=== PATIENT | female | born 1975 | race Caucasian/White ===

== ENCOUNTER 2021-10-03 01:52 | Day surgery (SDC) | payer BC, SELFPAY ==
[2021-10-02 18:05] VITALS: BMI 29.8
--- NOTE | 2021-10-02 18:41 | PC.NURSE ---
Report to the Outpatient Waiting Room, entrance under the green pavilion located off [facility], at time 0700 on date 10/03/21. OR Time: _0900_. - You and your visitor will be asked a series of questions to screen for COVID 19 for your protection. - Only one visitor is allowed at this time. - The patient visitor is requested to leave or wait in car when not with patient. - A mask is required within the hospital. Patients may have clear liquids (water, carbonated beverages, clear teas, apple juice) until 3 hours prior to surgery with a maximum of 20 ounces. - No food from midnight until time of surgery - Infants may have breast milk until 4 hours before surgery, infant formula 6 hours prior to surgery. - Children will be allowed to drink immediately following surgery. If applicable, please bring a bottle or sippy cup to assist with drinking. Juice, water, soda, and popsicles are readily available. For infants on formula, please bring formula the day of surgery. Pacifiers are allowed. Take the following medications with a SIP of water the morning of surgery: amoxicillin_ Medications to discontinue per physician vitamins__ Date to take last dose 10/02/21 Please no make-up, nail iraqi, hairspray, perfume, deodorant, or body powder the day of surgery. No jewelry (including any body piercings) or valuables the day of surgery, leave them at home. Please take a shower or bath the night before, or the morning of, surgery with an antibacterial soap. Wear comfortable, loose fitting clothing. Children are encouraged to wear pajamas. - Jewelry must be removed prior to entering the operating room. Rings and piercings that are not removed may be cut off. - The hospital will not accept responsibility for valuables. - Please leave all valuables, including medications, at home the day of surgery. If you are going home after surgery, a licensed charter and tour bus driver must drive you home. - NO public transportation without another adult. - We recommend that an adult stay with you for 24 hours following discharge. - We also recommend that you do not drive, make important decision, drink alcoholic beverages, or take any drugs that were not prescribed by your health care provider for at least 24 hours after your discharge time. For Pediatric surgeries, we recommend two adults accompany the child home (only one inside the building at this time). Follow any additional instructions given to you from your surgeon. If you or anyone in your household have experienced Covid symptoms in the past week, please notify your surgeon or the nurse liaison at the phone number below for possible testing. Telephone instructions given to Monica Li and asked if any additional questions and then verbalized understanding. Patient advised to call surgeon office or pre surgery nurse liaison [phone] if any additional questions.
[2021-10-03] MEDS: LACTATED RINGERS 1,000 ML 30 ML IV CONT ×3 (07:37→09:52)
[2021-10-03 07:52] VITALS: BP 111/68; PULSE 57; RESP 18; TEMP 36.7; O2SAT 99
--- NOTE | 2021-10-03 08:37 | P.PNAN_ITS ---
Anes - Initial Pre Proc Eval Procedure: Operation Date: 10/03/21 09:00 Proposed Procedures p Excision Basal Cell Carcinoma Right Nasal Sidewall with Frozen Section - Ricky Allen MD Date/Time: 10/03/21 08:37 Surgeon: Ricky Allen MD Pre Op Diagnosis: BCCA right nasal sidewall Patient Data Age: 46 Gender: F Height: 1.73 m Weight: 88.1 kg Last Vital Signs Temp 36.7 C 10/03/21 07:52 Pulse 57 L 10/03/21 07:52 Resp 18 10/03/21 07:52 BP 111/68 10/03/21 07:52 Pulse Ox 99 10/03/21 07:52 O2 Del Method Room Air 10/03/21 07:52 Allergies Allergy/AdvReac Type Severity Reaction Status Date / Time lidocaine AdvReac Mild Other Verified 10/03/21 07:45 erythromycin base AdvReac Rash Verified 10/03/21 07:45 Home Medications Medication Instructions Recorded Confirmed Type amoxicillin 500 mg capsule 500 mg PO DAILY 10/02/21 10/02/21 History ascorbic acid (vitamin C) 300 mg 300 mg PO DAILY 10/02/21 10/02/21 History chewable tablet coenzyme Q10 10 mg tablet 10 mg PO ONCE 10/02/21 10/02/21 History multivit with minerals-iron 18 1 tablet PO DAILY 10/02/21 10/02/21 History mg-folic ac 400 mcg-vit K 25 mcg tablet (Adults Multivitamin) pantoprazole 20 mg tablet,delayed 20 mg PO DAILY PRN spicy food 10/02/21 10/02/21 History release Patient hx anesthesia problems: none Family hx anesthesia problems: none Results Review: All pre-operative results and documents have been reviewed as part of the pre- operative evaluation. COUNTS INCLUDE 234 BEDS AT THE [facility] Past Medical History Medical History DVT (deep venous thrombosis) Seizure disorder TIA (transient ischemic attack) Social History Social History Smoking status: Never smoker Alcohol intake: current Substance use: never Living arrangements: with family Spiritual care concerns: No Anes - Eval Final PreProcedure Day of Procedure 10/03/21 08:37 Patient weight: overweight Heart: regular rate and rhythm Lungs: clear to auscultation Airway: Mallampati scale class II Neurological: alert and oriented Last oral intake: >/= 8 hours ASA classification: III Emergent: no Anesthetic plan: proceed Anesthesia type and monitoring: general GIVS and standard monitoring Results Review: All pre-operative results and documents have been reviewed as part of the pre- operative evaluation. Informed Consent: The patient's anesthetic plan and its attendant risks and benefits were discussed with the patient/family/POA. Questions were solicited and answers provided to the satisfaction of the patient/family/POA.
[2021-10-03] MEDS: BACITRACIN OINTMENT 15 GM TUBE 1 APPLIC TOPICAL (09:43)
[2021-10-03 09:52] VITALS: BP 126/62; PULSE 63; RESP 16; O2SAT 100
--- NOTE | 2021-10-03 10:05 | WPDHPUPDATE1 ---
History and Physical Update Update Date/Time: 10/03/21 10:05 History and Physical has been reviewed, including an updated exam of the patient. There are NO changes in the patient's condition. Risks, benefits, and alternatives have been discussed and questions answered. Patient agrees to proceed with procedure.
--- NOTE | 2021-10-03 10:17 | W.PM.PROC2 ---
Procedure Note - Detailed Date of Procedure 10/03/21 Pre-op Diagnosis BCCA right nasal sidewall Post-op Diagnosis Same Procedure Performed 1.3 cm excision of basal cell carcinoma of the right nasal sidewall with frozen section and intermediate repair 2 cm Surgeon Ricky Allen MD Anesthesia MAC Indications Biopsy-proven basal cell carcinoma Findings The residual tumor Description of Procedure The site on the patient's right nasal sidewall was marked with her consent in the holding area. She was taken to the operating room where she was placed supine on the operating table. She was given IV sedation interface was prepped and draped in usual fashion. A time-out was held firm. The site was carefully marked for excision. This area was infiltrated with approximately 5 milliliter of saline for a 2 best technique local anesthetic. She would not agree to lidocaine epinephrine. The excision was carried out through the full-thickness of skin into the subcutaneous tissue. The most inferior aspect was marked with the suture with 12:00 o'clock. Specimen sent to pathology. The pathologist reported that there was notable for . The margins were undermined approximately 0.5 cm in all directions. The wound margins were coapted with intradermal 5 0 Vicryl suture. The small standing cone was removed the distal end. The skin was closed with a running 5 0 nylon tolerated well. She is discharge home without prescription for pain medication Estimated Blood Loss 3 Drains No Packing No Pathology Yes Complications No immediate complications Condition Stable Disposition Same day
[2021-10-03 10:20] VITALS: BP 142/76; PULSE 58; RESP 16
[2021-10-03 10:50] VITALS: BP 135/75; PULSE 48; RESP 16
== END 2021-10-03 11:03 | disposition home or self-care (01) ==
PROVIDERS: PCP Family Medicine; Visit Provider Plastic Surgery
PROC: (CPT 11642; principal; 2021-10-03 09:00)
DX: C44.311 Basal cell carcinoma of skin of nose (principal)
CPT/HCPCS: 11642; 12051; 88305; 88331; 88332; A9270; J2250; J2405; J2704; J3010; J7120

== ENCOUNTER 2022-01-11 00:45 | Emergency (ER) | payer BC, SELFPAY ==
--- NOTE | ~2022-01-11 | CT_ITS ---
CORRECTED REPORT order change JMG 01/14/22 This report was recreated on 01/14/22. Original report was signed by Saeed Toscano M.D. on 01/11/2022 7:55 AEROSPACE MEDICINE PHYSICIAN EXAMINATION: CT abdomen pelvis wo con DATE: 01/11/2022 05:44 INDICATION: Left flank pain. TECHNIQUE: Computed tomography (CT) of the abdomen and pelvis was performed without intravenous contrast. Automated exposure control and iterative reconstruction technique were employed. The dose-length product was 258.79 mGy- cm. COMPARISON: None. FINDINGS: The visualized portions of the lung bases demonstrate mild atelectasis. No pleural effusion. The heart size is normal. No pericardial effusion. The liver, gallbladder, spleen, pancreas, adrenal glands, and right kidney are normal. There is mild left hydronephrosis and hydroureter. There is a 3 mm stone in distal left ureter. There are no dilated loops of bowel. There are changes of appendectomy. There are no pathologically enlarged lymph nodes. There is no free intraperitoneal fluid. There is moderate lower lumbar spondylosis. IMPRESSION: 1. 3 mm stone in distal left ureter with mild left hydronephrosis and hydroureter. Reviewed, dictated and finalized at location A. SPACE MEDICINE PHYSICIAN MTDD IMPRESSION: 1. 3 mm stone in distal left ureter with mild left hydronephrosis and hydrouret er.
[2022-01-11 00:48] VITALS: BP 153/72; PULSE 50; RESP 14; TEMP 36.6; O2SAT 100
--- NOTE | 2022-01-11 04:33 | ED.GENADULT ---
HPI - General Adult General Chief complaint: Abdominal Pain Stated complaint: kidney stone Time Seen by Provider: 01/11/22 01:10 History of Present Illness HPI narrative: Patient 46-year-old female who presents to Emergency Department with a chief complaint of flank pain. The patient reports that she had seen her VEHICLE RETURN ASSOCIATE after she started with pain in the left flank area that radiated to the left lower quadrant the patient states she had an outpatient ultrasound and that did not show any evidence of any acute abnormalities the patient states the pain got worse reports she is felt nauseated reports the pain is not improved by anything the patient is concerned that she may have a kidney stone. Related Data Home Medications Medication Instructions Recorded Confirmed amoxicillin 500 mg capsule 500 mg PO DAILY 10/02/21 10/02/21 ascorbic acid (vitamin C) 300 mg 300 mg PO DAILY 10/02/21 10/02/21 chewable tablet coenzyme Q10 10 mg tablet 10 mg PO ONCE 10/02/21 10/02/21 multivit with minerals-iron 18 1 tablet PO DAILY 10/02/21 10/02/21 mg-folic ac 400 mcg-vit K 25 mcg tablet (Adults Multivitamin) pantoprazole 20 mg tablet,delayed 20 mg PO DAILY PRN spicy food 10/02/21 10/02/21 release Allergies Allergy/AdvReac Type Severity Reaction Status Date / Time lidocaine AdvReac Mild Other Verified 01/11/22 01:00 erythromycin base AdvReac Rash Verified 01/11/22 01:00 Review of Systems Review of Systems: A 10 system review of systems was completed on the patient and is negative except for what is stated in the HPI. Nursing and ancillary documentation was reviewed. [facility] Past Medical History Medical History DVT (deep venous thrombosis) Seizure disorder TIA (transient ischemic attack) Social History Social History Smoking status: Never smoker Alcohol intake: current Substance use: never Spiritual care concerns: No Exam Narrative: GENERAL: Well-appearing, well-nourished, and in no acute distress. HEAD: Normocephalic, atraumatic. EYES: PERRLA and EOMI. ENT: Nares clear, no rhinorrhea or epistaxis. Mucous membranes moist. NECK: Supple. CHEST: Clear to auscultation. No respiratory distress. HEART: Regular rate and rhythm. No murmur heard. Normal peripheral pulses. ABDOMEN: Soft, nontender, nondistended, normal active bowel sounds. EXTREMITIES: Normal range of motion. No edema. SKIN: Warm, dry, no rash. NEURO: No focal deficits. Alert and oriented x3. PSYCH: Normal mood and affect. Course Vital Signs Vital signs: Vital Signs Temperature 36.6 C 01/11/22 00:48 Pulse Rate 50 L 01/11/22 00:48 Respiratory Rate 14 01/11/22 00:48 Blood Pressure 153/72 H 01/11/22 00:48 Pulse Oximetry 100 01/11/22 00:48 Oxygen Delivery Room Air 01/11/22 00:48 Temperature 36.6 C 01/11/22 00:48 Pulse Rate 50 L 01/11/22 00:48 Respiratory Rate 14 01/11/22 00:48 Blood Pressure 153/72 H 01/11/22 00:48 Pulse Oximetry 100 01/11/22 00:48 Oxygen Delivery Room Air 01/11/22 00:48 Medical Decision Making Vital Signs Vital Signs: Vital Signs Temperature 36.6 C 01/11/22 00:48 Pulse Rate 50 L 01/11/22 00:48 Respiratory Rate 14 01/11/22 00:48 Blood Pressure 153/72 H 01/11/22 00:48 Pulse Oximetry 100 01/11/22 00:48 Oxygen Delivery Room Air 01/11/22 00:48 Temperature 36.6 C 01/11/22 00:48 Pulse Rate 50 L 01/11/22 00:48 Respiratory Rate 14 01/11/22 00:48 Blood Pressure 153/72 H 01/11/22 00:48 Pulse Oximetry 100 01/11/22 00:48 Oxygen Delivery Room Air 01/11/22 00:48 Lab Data Result diagrams: 01/11/22 00:59 01/11/22 00:59 Labs: Lab Results 01/11/22 01/11/22 01/11/22 Range/Units 00:59 00:59 00:59 WBC 8.8 (4.5-10.0) K/mm3 RBC 4.26 (4.2-5.4) M/mm3 Hgb 13.0 (12.0-15.0) g/dL Hc
[2022-01-11 05:41] LABS: Alanine Aminotransferase 22 U/L (6-35); Albumin Level 4.3 g/dL (3.5-5.1); Alkaline Phosphatase 83 U/L (38-126); Anion Gap 10 mmol/L (8-16); Aspartate Amino Transferase 21 U/L (14-36); Bilirubin,Total 0.4 mg/dL (0.2-1.3); Blood Urea Nitrogen 30 mg/dL (7-17); Carbon Dioxide 27 mmol/L (22-30); Chloride 101 mmol/L (98-107); Estimated Glomerular Filt Rate > 60; Glucose 137 mg/dL (65-110); Potassium 3.5 mmol/L (3.4-5.0); Sodium 138 mmol/L (137-145)
[2022-01-11 06:02] LABS: Hematocrit 39.1 % (37.0-47.0); Mean Corpuscular Volume 91.8 fl (80-100); Red Blood Count 4.26 M/mm3 (4.2-5.4); White Blood Count 8.8 K/mm3 (4.5-10.0)
[2022-01-11 06:03] LABS: Immature Granulocyte Percent A 0.2 % (0-0.5); Lymphocytes Percent Auto 42.1 % (18.3-44.2); Mean Corpuscular HGB Conc 33.2 g/dl (32-36); Mean Corpuscular Hemoglobin 30.5 pg (26-34); Mean Platelet Volume 10.1 fl (7.4-10.4); Neutrophils Percent Auto 47.3 % (45.5-73.1); Platelet Count Result 281 k/mm3 (150-375); Red Cell Distribution Width 13.2 % (11.5-14.5)
[2022-01-11 06:04] LABS: Basophils Absolute Auto 0.1 K/mm3 (0.0-0.1); Basophils Percent Auto 0.6 % (0.2-1.2); Eosinophils Absolute Auto 0.3 K/mm3 (0-0.3); Eosinophils Percent Auto 3.1 % (0-4.4); Immature Granulocyte Absolute 0.02 K/mm3 (0.00-0.031); Monocytes Absolute Auto 0.6 K/mm3 (0.1-0.6); Monocytes Percent Auto 6.7 % (2.6-8.5); Neutrophils Absolute Auto 4.2 K/mm3 (1.3-6.7)
[2022-01-11 06:05] LABS: Color Urine Dark Yellow (Yellow)
[2022-01-11 06:06] LABS: Appearance Urine Cloudy (Clear); Blood Urine 3+ (Negative); Glucose Urine UA Negative (Negative); Ketones Urine Trace mg/dL (Negative); Protein Urine 2+ mg/dL (Negative); Specific Grav Ur >= 1.030 (1.001-1.035); pH Urine 5.5 (5.0-9.0)
[2022-01-11 06:07] LABS: Add Urine Microscopic? YES; Bilirubin Urine 1+ (Negative); Leukocyte Esterase Ur Negative LEU/UL (Negative); Nitrate Urine Negative (Negative); RBC Urine >75 /hpf (0-2); Urobilinogen Urine 0.2 mg/dL (<2.0)
[2022-01-11 06:08] LABS: Squamous Epithelial Cell Urine Many /hpf (Few); Uric Acid Crystals Urine Present /hpf; WBC Urine 16-20 /hpf
[2022-01-11 06:09] LABS: Bacteria Urine Trace /hpf
[2022-01-11] MEDS: TAMSULOSIN HCL 0.4 MG CAPSULE PO (06:58)
[2022-01-11] MEDS: HYDROcodone/acetaminophen (*CRX) 5-325 MG TABLET 1 TAB PO (06:58)
[2022-01-11] MEDS: ONDANSETRON HCL ODT 4 MG TABLET PO (07:01)
[2022-01-11 07:21] LABS: Lipase 155 U/L (23-300)
[2022-01-11 07:22] VITALS: BP 140/88; PULSE 88; RESP 18; O2SAT 99
== END 2022-01-11 07:26 | disposition home or self-care (01) ==
PROVIDERS: Emergency Provider Emergency Medicine; PCP Family Medicine
DX: N20.1 Calculus of ureter (principal); R10.31 Right lower quadrant pain
CPT/HCPCS: 36415; 74176; 74177; 80053; 81001; 81025; 83690; 85025; 87086; 99283; A9270; J1170; J2405; J7030; Q9967

== ENCOUNTER 2022-09-27 12:39 | Emergency (ER) | payer BC, SELFPAY ==
--- NOTE | 2022-09-27 12:41 | ED.URI ---
HPI - URI/Sore Throat General Chief Complaint: Upper Respiratory Infection Stated Complaint: sorethroar,congestion Time Seen by Provider: 09/27/22 12:41 Source: patient Mode of arrival: ambulatory Limitations: no limitations History of Present Illness HPI Narrative: Monica is a 47-year-old female patient presenting to the clinic today with complaints of cough, nasal/chest congestion, and sore throat that just started this morning. She is supposed to go on an international trip later this week and is concerned that she may have COVID. Denies any fever. Reports slight chills. Vital signs are stable and she is afebrile in the clinic. Related Data Home Medications Medication Instructions Recorded Confirmed pantoprazole 20 mg tablet,delayed 20 mg PO DAILY PRN spicy food 10/02/21 09/27/22 release Allergies Allergy/AdvReac Type Severity Reaction Status Date / Time lidocaine AdvReac Mild Other Verified 01/11/22 01:00 erythromycin base AdvReac Rash Verified 01/11/22 01:00 naproxen [From Aleve] AdvReac Unknown Verified 09/27/22 13:01 Review of Systems Review of Systems: Pertinent positives per HPI. Patient denies any fever, rash, headache, visual changes, dizziness, shortness of breath, chest pain, palpitations, nausea, vomiting, diarrhea, constipation, abdominal pain, or any urinary issues. PMFSH Past Medical History Medical History DVT (deep venous thrombosis) Seizure disorder TIA (transient ischemic attack) Social History Social History Smoking status: Never smoker Alcohol intake: current Substance use: never Living arrangements: with family Spiritual care concerns: No Comments At the time of my signature, I reviewed and agree with the nursing past medical, surgical, social, and family history. There is no relevant family history pertinent to the patient complaint. Exam Narrative: General: Well-developed, well nourished, in no apparent distress Head: Normocephalic, atraumatic Eyes: Pupils equally round and reactive to light bilaterally, EOM intact, sclera and conjunctive clear, no discharge, lids normal Ears: TMs intact and clear, ear canals clear, no drainage, grossly hearing normal. Nose: Nares patent, clear nasal discharge, no inflammation, no sinus tenderness. Mouth: Oropharynx without lesions or masses, good dentition, MMM. Postnasal drip Neck: Supple, trachea midline, no enlargement of anterior or posterior cervical nodes, no thyroid masses or goiter palpable. Cardio: Regular rate and rhythm, s1 and s2 normal, no murmur appreciated. Resp: Clear to auscultation bilaterally anteriorly and posteriorly, no rhonchi, rales, wheezing or rubs Course Course Emergency Course: Portions of this record may have been created with voice recognition software. Level of Care: Express Care Visit Vital Signs Vital signs: Vital signs reviewed MDM - URI/Sore Throat MDM Narrative Medical decision making narrative: At the time of visit patient is resting comfortably on the exam table. Strep screen was obtained was negative in the clinic today. I suspect patient has URI/pharyngitis. Supportive measures were discussed with the patient she voiced understanding discharge instructions and agrees to treatment plan. Differential Diagnosis Differential diagnosis: Likely upper respiratory infection, otitis media, sinusitis, viral infection, bronchitis, influenza, pharyngitis and other (COVID) Discharge Plan Discharge Clinical Impression: URI (upper respiratory infection) Qualifiers: URI type: unspecified viral URI Qualified Code(s): J06.9 - Acute upper respiratory infection, unspecified Pharyngitis Qualifiers: Pharyngitis/tonsillitis etiology: unspecified etiology Qualified Code(s): J02.9 - Acute pharyngitis, unspecified Patient Disposition: Home, Self-Care Conditi
[2022-09-27 12:53] VITALS: BP 125/73; PULSE 72; RESP 18; TEMP 36.4; O2SAT 98
== END 2022-09-27 13:06 | disposition home or self-care (01) ==
PROVIDERS: Emergency Provider Nurse Practitioner Family; PCP Family Medicine
DX: J06.9 Acute upper respiratory infection, unspecified (principal); J02.9 Acute pharyngitis, unspecified; Z86.718 Personal history of other venous thrombosis and embolism; Z86.73 Personal history of transient ischemic attack (TIA), and cerebral infarction without residual deficits
CPT/HCPCS: 87081; 87880; 99213; G0463

== ENCOUNTER 2024-04-19 10:53 | Emergency (ER) | payer BC, SELFPAY ==
--- NOTE | 2024-04-19 10:57 | ED_ITS ---
HPI - URI/Sore Throat General Chief Complaint: Upper Respiratory Infection Stated Complaint: cough, headache, congestion Time Seen by Provider: 04/19/24 11:10 Source: patient, RN notes reviewed and old records reviewed Mode of arrival: ambulatory Limitations: no limitations History of Present Illness HPI Narrative: 48-year-old female presents to the [facility] with complaints of cough, headache, congestion, sinus issues and ear discomfort that started on Friday, 2 days ago. Related Data Home Medications ?Medication ?Instructions ?Recorded ?Confirmed ?Last Taken ?Type pantoprazole 20 mg tablet,delayed 20 mg PO DAILY PRN spicy food 10/02/21 09/27/22 Unknown History release Allergies Allergy/AdvReac Type Severity Reaction Status Date / Time erythromycin base Allergy Rash Verified 04/19/24 11:10 lidocaine AdvReac Mild Other Verified 04/19/24 11:10 naproxen (From Aleve) AdvReac Unknown Verified 04/19/24 11:10 Review of Systems Review of Systems: All systems reviewed & are unremarkable except as noted in HPI and below Constitutional: Constitutional: Reports as per HPI and Reports headache(s) ENT: Reports as per HPI Cardiovascular: Cardiovascular: Reports no additional cardiovascular complaints, Denies chest pain and Denies dyspnea Respiratory: Respiratory: Reports as per HPI, Denies chest congestion, Reports cough and Denies dyspnea Musculoskeletal: Musculoskeletal: Reports no additional musculoskeletal complaints Integumentary/Breasts: Skin/Breast: Reports system reviewed and no additional complaints, except as docu PMFSH Past Medical History Medical History TIA (transient ischemic attack) Seizure disorder DVT (deep venous thrombosis) Social History Social History Smoking status: Never smoker Alcohol intake: current Substance use: never Living arrangements: with family Spiritual care concerns: No Comments At the time of my signature, I reviewed and agree with the nursing past medical, surgical, social, and family history. There is no relevant family history pertinent to the patient complaint. Exam Const: General: cooperative, no acute distress, well developed, alert, tired appearing, uncomfortable and well nourished Nutritional Appearance: well nourished Orientation/consciousness: patient oriented x3 Limitations: no limitations HENMT: Head: normal to inspection Ears: hearing grossly normal bilaterally, external ears normal, EAC's normal, mastoids normal, no periauricular adenopathy and TM abnormal with fluid behind the TM bilateral Face/Nose/Sinus: Normal external nose present, Normal nares present and No nasal discharge present Mouth: Yes Normal oral and palatal mucosa present, Yes lip normal, Yes tongue normal and Yes moist mucous membranes Throat: posterior oropharynx normal, uvula midline, postnasal drainage and no uvular edema Eyes: General: appearance normal, both eyes and all related structures Alignment and Position: alignment normal Neck: Neck: normal visual inspection, full ROM, no lymphadenopathy and no m eningeal signs Chest: Chest palpation & inspection: normal inspection of the chest Resp: Effort & Inspection: normal respiratory effort and able to speak in complete sentences Auscultation: clear to auscultation bilaterally, no crackles, no rales, no rhonchi and no wheezes Cardio: Rate: regular rate Skin: General skin exam: normal color and no rashes or lesions noted Neuro: General: patient oriented x3, gait normal, moves all extremities and no meningeal signs Cognition (Neuro): normal cognition Speech: normal speech Gait exam (Neuro): Normal gait present Extrem: General: normal to inspection, full ROM, capillary refill normal and normal gait Psych: Appearance: grossly normal and well kempt Mental Status: mental status grossly normal Speech and movement: Normal speech and movement present and Clear speech present Affect: normal affect Attitude: cooperative Course Course Level of Care: Express Care Visit Vital Signs Vital signs: Vital Signs Temperature 97.9 F 04/19/24 11:05 Pulse Rate 86 04/19/24 11:05 Respiratory Rate 18 04/19/24 11:05 Blood Pressure 135/79 04/19/24 11:05 Pulse Oximetry 98 04/19/24 11:05 Oxygen Delivery Room Air 04/19/24 11:05 Temperature 97.9 F 04/19/24 11:05 Pulse Rate 86 04/19/24 11:05 Respiratory Rate 18 04/19/24 11:05 Blood Pressure 135/79 04/19/24 11:05 Pulse Oximetry 98 04/19/24 11:05 Oxygen Delivery Room Air 04/19/24 11:05 Reviewed MDM - URI/Sore Throat MDM Narrative Medical decision making narrative: Patient sitting comfortably in exam room. Nontoxic, vitals stable. Patient in no acute distress. Patient presents with 2 day history of URI symptoms. Flu COVID are negative. Patient is appropriate for outpatient treatment of viral URI with close follow-up Discharge instructions reviewed with patient, as well as provided in writing per nursing staff. The instructions also include specific and strict return/GO TO THE ER as well as f/u information. All questions have been answered, and the patient deny any further questions with discharge and discharge plan. Some parts of this dictation were generated by voice recognition software and may contain typographical and/or grammatical inaccuracies. Differential Diagnosis Differential diagnosis: Likely upper respiratory infection, otitis media, sinusitis, viral infection, bronchitis, influenza and pharyngitis Lab Data Labs: Lab Results 04/19/24 Range/Units 11:31 POC Influenza A Ag Negative (Negative) POC Influenza B Ag Negative (Negative) POC SARS CoV-2 Ag Negative (Negative) Reviewed Critical Care Time Critical Care Time Critical Care Time: No Discharge Plan Discharge Clinical Impression: Upper respiratory infection Qualifiers: URI type: unspecified viral URI Qualified Code(s): J06.9 - Acute upper respiratory infection, unspecified Patient Disposition: Home, Self-Care Condition: Stable Instructions: Antibiotic Form, Upper Respiratory Infection (ED) Additional Instructions: Your rapid COVID test were negative Your rapid flu test was negative Your symptoms are likely due to a viral illness, which is not treated with antibiotics. Typically viral infections last 7-10 days, can linger for couple of weeks. It is very important to treat your symptoms. Drink plenty of water, Gatorade, Pedialyte, ice pops or Jell-O. -Alternate Tylenol and Motrin per package directions for fever or pain. You can alternate every 4 hours -Antihistamine medication such as Zyrtec/Claritin/Rose during the day can help improve symptoms. -doing daily nasal irrigations can help relieve pressure your sinuses. Things like a Neti pot -Use Flonase twice a day for 5 days then daily to help reduce the inflammation and dry up your sinuses. -You can also use Mucinex. Be sure to drink plenty of water with this medication at least 8 ounces with every dose and it is important to drink 8 to 10 glasses of water per day. Water is a natural decongestant -Eat and drink things that are easy to swallow, like tea or soup, or popsicles. -Oral rinses such as: Salt water gargles and/or may use topical anesthetic (eg. Chloraseptic spray) or lozenges to relieve dryness or throat pain). -Frequent hand washing or hand dance director is one of the best ways to prevent spread of infection. -Using a vaporizer or humidifier at night will also help thin secretions and help with coughing up phlegm. -Follow up with primary care provider in 7-10 days if condition is not improving - For new or worsening symptoms go directly to the nearest ER Patient Language: [place] Prescriptions: New benzonatate 100 mg capsule 100 mg PO TID PRN (Reason: cough) Qty: 10 0RF No Action pantoprazole 20 mg tablet,delayed release (DR/EC) 20 mg PO DAILY PRN (Reason: spicy food) Follow-up/Referrals: Ezra,DO Katherine [Primary Care Provider] - 2 Weeks ([facility] care follow up ) Stand Alone Forms: Work/School Release IP Time of Disposition: 11:30
[2024-04-19 11:05] VITALS: BP 135/79; PULSE 86; RESP 18; TEMP 36.6; O2SAT 98
[2024-04-19 11:34] LABS: EDCOVIDSCREEN Negative (Negative); EDINFLUASCREEN Negative (Negative); EDINFLUBSCREEN Negative (Negative)
--- OUTSIDE RECORDS SUMMARY | 2024-04-19 12:31 | XMS_ITS | Encounter Summary ---
Author Organization [facility] Address [address] [place] [address] Care Team Providers Care Director Toxicology Name Role Phone Pedro Bermeo MD Unavailable [phone] Katherine Munguia DO Primary Care Provider [phone] Encounter Details Date Type Department Care Team (Late st Contact Info) Description 11/11/2023 Skipolat Message Enc [facility] Medical [facility] Family Medicine - [place] [address], [address] [place] [phone] Katherine Munguia DO [address] [place] [address] Heading to [place] next week Social History Tobacco Use Types Packs/Day Years Used Date Smoking Tobacco: Never Passive Smoke Exposure: Past Smokeless Tobacco: Never Comments:na Alcohol Use Standard Drinks/Week Comments Yes 0 (1 standard drink = 0.6 oz pur e alcohol) occasional PHQ-2 Answer Date Recorded Patient Health Questionnaire-2 Score 0 11/14/2023 Comments No Sex and Gender Information Value Date Recorded Sex Assigned at Not on file Legal Sex Female 8:34 PM CDT Gender Identity Not on file Sexual Orientation Not on file 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
--- OUTSIDE RECORDS SUMMARY | 2024-04-19 12:31 | XMS_ITS | Encounter Summary ---
Author Organization [facility] Address [address] [place] [address] Care Team Providers Care Membership Manager Name Role Phone Pedro Bermeo MD Unavailable [phone] Katherine Munguia DO Primary Care Provider [phone] Encounter Details Date Type Department Care Team (Late st Contact Info) Description 11/25/2023 BDA Message Enc [facility] Medical Group Family Medicine - [place] [address], [address] [place] [phone] Katherine Munguia DO [address] [place] [address] Doxycycline Social History Tobacco Use Types Packs/Day Years [...] 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
--- OUTSIDE RECORDS SUMMARY | 2024-04-19 12:31 | XMS_ITS | Encounter Summary ---
Author Organization [facility] Address [address] [place] [address] Care Team Providers Care Program Scheduler Name Role Phone Pedro Bermeo MD Unavailable [phone] Katherine Munguia DO Primary Care Provider [phone] Encounter Details Date Type Department Care Team (Late st Contact Info) Description 09/24/2021 ADMA Biologicst Message Enc [facility] Medical [facility] Family Medicine - [place] [address], [address] [place] [phone] Katherine Munguia DO [address] [place] [address] Tick bite Social History Tobacco Use Types Packs/Day Years Used Date Smoking Tobacco: Never Smokeless Tobacco: Never Comments:na Alcohol Use Standard Drinks/Week Comments Yes 0 (1 standard drink = 0.6 oz pur e alcohol) occasional PHQ-2 Answer Date Recorded PHQ-2 Score - If the patient scores above 3, please move on to questions 3-9 0 09/26/2021 Comments No Sex and Gender Information Value Date Recorded Sex Assigned at Not on file Legal Sex Female 8:34 PM CDT Gender Identity Not on file Sexual Orientation Not on file 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 No / Unsure 09/21/2021 10:16 AM CDT documented as of this encounter Plan of Treatment Not on file documented as of this encounter Visit Diagnoses Not on filedocumented in this encounter Additional Health Concerns Infection Onset Date Last Indicated Resolved Time COVID-19 Rule Out 03/28/2022 03/28/2022 03/28/2022 8:40 PM REGISTERED NURSE CARDIAC COVID-19 Rule Out 06/05/2023 06/05/2023 06/05/2023 9:27 AM CDT Assessment Noted Time PHQ-9 Depression Total Score: 0 10/07/19 21 8:18 AM CDT documented as of this encounter Care Teams Program Scheduler Relationship Specialty Start Date End Date Katherine Munguia DO [address] [place] [address] PCP - General FAMILY PRACTICE 08/31/19 Pedro Bermeo MD [place] Baker Bench CARDIOVASCULAR DISEASE 05/08/17 documented as of this encounter
--- OUTSIDE RECORDS SUMMARY | 2024-04-19 12:31 | XMS_ITS | Encounter Summary ---
Author Organization [facility] Address [address] [place] [address] Care Team Providers Care Distribution Systems Superintendent Name Role Phone Pedro Bermeo MD Unavailable [phone] Katherine Munguia DO Primary Care Provider [phone] Encounter Details Date Type Department Care Team (Late st Contact Info) Description 06/10/2021 Ruby Ribbont Message Enc [facility] Medical Group Family Medicine - [place] [address], [address] [place] [phone] Katherine Munguia DO [address] [place] [address] Moms disability placard Social History Tobacco Use Types Packs/Day Years Used Date Smoking Tobacco: Never Smokeless Tobacco: Never Alcohol Use Standard Drinks/Week Comments Yes 0 (1 standard drink = 0.6 oz pur e alcohol) occasional PHQ-2 Answer Date Recorded PHQ-2 Score - If the patient scores above 3, please move on to questions 3-9 0 10/06/2020 Comments No Sex and Gender Information Value Date Recorded Sex Assigned at Not on file Legal Sex Female 8:34 PM CDT Gender Identity Not on file Sexual Orientation Not on file 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 No / Unsure 06/11/2021 7:03 AM CDT documented as of this encounter Progress Notes * Katherine Munguia DO - 06/12/2021 6:[address] in patient's chart, on jeff's mother She is needing a disabled placard renewal, please fill out for me to fill out * Katherine Munguia DO - 06/12/2021 6:04 AM CDTFrom: Jeff Zambranobenja To: Dr. Kathreine Munguia Sent: 06/10/2021 9:58 AM CDT Subject: Moms disability placard Katherine, We just realized that mom disability placard expires at the end of the month. Can your office please renew. I saw that physicians cam renew online via the [employer] website. Thank you!! Jeff documented in this encounter Plan of Treatment Not on file documented as of this encounter Visit Diagnoses Not on filedocumented in this encounter Additional Health Concerns Infection Onset Date Last Indicated Resolved Time COVID-19 Rule Out 03/28/2022 03/28/2022 03/28/2022 8:40 PM POWERTRAIN ENGINEER COVID-19 Rule Out 06/05/2023 06/05/2023 06/05/2023 9:27 AM CDT Assessment Noted Time PHQ-9 Depression Total Score: 0 10/07/19 21 8:18 AM CDT documented as of this encounter Care Teams Distribution Systems Superintendent Relationship Specialty Start Date End Date Katherine Munguia DO [address] [place] [address] PCP - General FAMILY PRACTICE 08/31/19 Pedro Bermeo MD [place] Grants Director CARDIOVASCULAR DISEASE 05/08/17 documented as of this encounter
--- OUTSIDE RECORDS SUMMARY | 2024-04-19 12:31 | XMS_ITS | Encounter Summary ---
Author Organization [facility] Address [address] [place] [address] Care Team Providers Care Family Court Counsellor Name Role Phone Pedro Bermeo MD Unavailable [phone] Katherine Munguia DO Primary Care Provider [phone] Encounter Details Date Type Department Care Team (Late st Contact Info) Description 02/28/2023 Aero[employer]yn[employer] Message Enc [facility] Medical Group Family Medicine - [place] [address], [address] [place] [phone] Katherine Munguia DO [address] [place], [place] [id number] Injury on New Years Social History Tobacco Use Types Packs/Day Years Used Date Smoking Tobacco: Never Smokeless Tobacco: Never Comments:na Alcohol Use Standard Drinks/Week Comments Yes 0 (1 standard drink = 0.6 oz pur e alcohol) occasional PHQ-2 Answer Date Recorded Patient Health Questionnaire-2 Score 0 03/19/2022 Comments No Sex and Gender Information Value Date Recorded Sex Assigned at Not on file Legal Sex Female 8:34 PM CDT Gender Identity Not on file Sexual Orientation Not on file 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 Not on file Not on file documented as of this encounter Plan of Treatment Not on file documented as of this encounter Visit Diagnoses Not on filedocumented in this encounter Additional Health Concerns Infection Onset Date Last Indicated Resolved Time COVID-19 Rule Out 06/05/2023 06/05/2023 06/05/2023 9:27 AM CDT Assessment Noted Time PHQ-9 Depression Total Score: 0 09/27/19 22 2:18 PM CDT documented as of this encounter Care Teams Family Court Counsellor Relationship Specialty Start Date End Date Katherine Munguia DO [address] [place] [address] PCP - General FAMILY PRACTICE 08/31/19 Pedro Bermeo MD [place] Inseminator CARDIOVASCULAR DISEASE 05/08/17 documented as of this encounter
--- OUTSIDE RECORDS SUMMARY | 2024-04-19 12:31 | XMS_ITS | Encounter Summary ---
Author Organization [facility] Address [address] [place] [address] Care Team Providers Care Oil And Gas Lease Pumper Name Role Phone Pedro Bermeo MD Unavailable [phone] Katherine Munguia DO Primary Care Provider [phone] Encounter Details Date Type Department Care Team (Late st Contact Info) Description 02/04/2022 Geosign Message Enc [facility] Medical Group Family Medicine - [place] [address], [address] [place] [phone] Katherine Munguia DO [address] [place] [address] Mom Social History Tobacco Use Types Packs/Day Years [...] 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 No / Unsure 01/14/2022 1:44 PM QUAL FIELD MANAGER documented as of this encounter Plan of Treatment Not on file documented as of this encounter Visit Diagnoses Not on filedocumented in this encounter Additional Health Concerns Infection Onset Date Last Indicated Resolved Time COVID-19 Rule Out 03/28/2022 03/28/2022 03/28/2022 8:40 PM QUAL FIELD MANAGER COVID-19 Rule Out 06/05/2023 06/05/2023 06/05/2023 9:27 AM CDT Assessment Noted Time PHQ-9 Depression Total Score: 0 09/27/19 22 2:18 PM CDT documented as of this encounter Care Teams Oil And Gas Lease Pumper Relationship Specialty Start Date End Date Katherine Munguia DO [address] [place] [address] PCP - General FAMILY PRACTICE 08/31/19 Pedro Bermeo MD [place] Water Main Installer Helper CARDIOVASCULAR DISEASE 05/08/17 documented as of this encounter
--- OUTSIDE RECORDS SUMMARY | 2024-04-19 12:31 | XMS_ITS | Encounter Summary ---
Author Organization [facility] Address [address] [place] [address] Care Team Providers Care Limousine And Hearse Upholsterer Name Role Phone Pedro Bermeo MD Unavailable [phone] Katherine Munguia DO Primary Care Provider [phone] Encounter Details Date Type Department Care Team (Late st Contact Info) Description 10/05/[address] [employer] [address] [facility] Medical Group Family Medicine - [place] [address], [address] [place] [phone] Katherine Munguia DO [address] [place], [place] [id number] Can we talk before moms appointment Friday? 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 Not on file documented as of this encounter Plan of Treatment Not on file documented as of this encounter Visit Diagnoses Not on filedocumented in this encounter Additional Health Concerns Assessment Noted Time PHQ-9 Depression Total Score: 0 06/09/19 24 12:01 PM CDT documented as of this encounter Care Teams Limousine And Hearse Upholsterer Relationship Specialty Start Date End Date Katherine Munguia DO [facility] [place] [address] PCP - General FAMILY PRACTICE 08/31/19 Pedro Bermeo MD [place] Log Buncher CARDIOVASCULAR DISEASE 05/08/17 documented as of this encounter
--- OUTSIDE RECORDS SUMMARY | 2024-04-19 12:31 | XMS_ITS | Encounter Summary ---
Author Organization [facility] Address [address] [place] [address] Care Team Providers Care Photographer Model Name Role Phone Pedro Bermeo MD Unavailable [phone] Katherine Munguia DO Primary Care Provider [phone] Encounter Details Date Type Department Care Team (Late st Contact Info) Description 06/18/2023 [employer] Message Enc [facility] Medical Group Family Medicine - [place] [address], [address] [place] [phone] Katherine Munguia DO [address] [place], [place] [phone] Still have the cough Social History Tobacco Use Types Packs/Day Years [...] 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
--- OUTSIDE RECORDS SUMMARY | 2024-04-19 12:31 | XMS_ITS | Encounter Summary ---
Author Organization [facility] Address [address] [place] [address] Care Team Providers Care Service Crew Supervisor Name Role Phone Pedro Bermeo MD Unavailable [phone] Katherine Munguia DO Primary Care Provider [phone] Encounter Details Date Type Department Care Team (Late st Contact Info) Description 03/27/2023 Burst.it Message Enc [facility] Medical Group Family Medicine - [place] [address] [facility] [address], [address] [place] [phone] Katherine Munguia DO [address] [place] [address] ACL surgery Social History Tobacco Use Types Packs/Day Years [...] 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
--- OUTSIDE RECORDS SUMMARY | 2024-04-19 12:31 | XMS_ITS | Encounter Summary ---
Author Organization [facility] Address [address] [place] [address] Care Team Providers Care Physician Assistant Primary Care Name Role Phone Pedro Bermeo MD Unavailable [phone] Katherine Munguia DO Primary Care Provider [phone] Encounter Details Date Type Department Care Team (Late st Contact Info) Description 06/20/2021 Microlight Sensorst Message Enc [facility] Medical Group Family Medicine - [place] [address] [facility], [address] [place] [phone] Katherine Munguia DO [address] [place] [address] Travel to [facility] Social History Tobacco Use Types Packs/Day Years [...] 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
--- OUTSIDE RECORDS SUMMARY | 2024-04-19 12:32 | XMS_ITS | Clinical Summary ---
Author Organization [facility] Address Replaced by [facility] [place] [address] Care Team Providers Care Cellophane Casting Machine Repairer Name Role Phone Pedro Bermeo MD Unavailable [phone] Katherine Munguia DO Primary Care Provider [phone] Allergies Active Allergy Reactions Criticality Noted Date Comments Albuterol Other (see comment) 06/09/2023 Mad, irritated Erythromycin Unknown,Hives 10/15/2010 Lidocaine Unknown 04/23/2017 Does not work, if anything, makes opposite reaction than what it should do. Hypersensitive. Feels pain more. Naproxen Hives 10/20/2018 Only happens with Aleve, hives on hands & bottom of feet Plax Hives 10/21/2023 AIM To[employer]Paste Medications pantoprazole EC (PROTONIX) 20 MG tabletIndicatio ns:Epigastric pain Take 1 tablet (20 mg total) by mouth daily. 30 tablet 3 4 Active Additional Information Patient taking differently:20 mg OralPRN, Reported on 12/09/2023 Active Problems Problem Noted Date Diagnosed Date Kidney stones 01/14/2022 Lump in upper inner quadrant of left breast 11/24 History of meniscal tear 07/30/2017 Left knee pain 07/30/2017 History of DVT (deep vein thrombosis) 05/25/2017 History of pulmonary embolism 05/25/2017 Obesity (BMI 30.0-34.9) 05/25/2017 Family history of coronary artery disease in gra ndfather 05/25/2017 Abnormal menstrual cycle 09/15/2015 Left upper quadrant pain 09/15/2015 Skin mole 12/14/2013 Pes planus 11/26/2011 History of TIA (transient ischemic attack) Resolved Problems Problem Noted Date Diagnosed Date Resolved Date Obesity, Class I, BMI 30.0-3 4.9 (see actual BMI) 04/24/2019 10/26/2019 Metatarsalgia 06/27/2017 10/26/2019 Chest pain 04/14/2017 10/26/2019 Arthritis of ankle, right 06/25/2016 Left knee sprain 04/22/2016 10/26/2019 Skin lesion 04/09/2016 10/26/2019 History of pulmonary embolism 04/09/2016 10/06/2020 Coughing 03/04/2016 10/26/2019 Anxiety 12/08/2015 09/28/2021 Chest pressure 12/08/2015 10/26/2019 Frequent loose stools 11/03/20152019 Right ankle instability 10/20/201502/2019 Right ankle pain 10/20/2015 10/26/2019 Hot flashes 09/15/2015 10/26/2019 Costochondritis 05/26/2015 10/26/2019 Gastroesophageal reflux disease 05/26/2015 09/28/2021 Neck pain on left side 04/04/201510/25 Leg swelling 03/02/2015 10/26/2019 Otalgia 12/08/2014 10/26/2019 Obesity 09/23/2011 10/06/2020 Encounter for preventive health examination 09/20/2011 10/26/2019 Dizziness and giddiness 10/15/201002/2019 Other specified disorders of Eustachian tube, unspecified ear 10/15/2010 10/26/2019 Encounters Date Type Department Care Team Description 02/10/2024 MyChart Message Enc [facility] Medical Group Family Medicine - [place] [address], [address] ' [place] [address] Katherine Munguia, Mom from Last 3 Months Immunizations Name Administration Dates Next Due H1N1 Injectable 2009 Influenza 03/30/2009 Hepatitis A (Havrix [address]) 05/10/2000 Influenza (FluMist) 12/08/2010,01/24/2007 MMR (MMRII) 04/03/2003 Polio IPV (Ipol) 09/24/1999 Rabies (Imovax) 03/14/2005 Td (TDVAX) 05/20/2008,05/09/1998 Tdap (Generic) 02/24/2014 Typhoid (Typhim ) 06/23/2021,04/03/2007 Yellow Fever (YF- Vax) 12/27/2001 Family History Medical History Relation Comments Stroke Mother Heart Attack Paternal Grandfather Heart Attack Paternal Grandmother Cancer Neg Hx bladder, colon, breast, leukemia Relation Status Comments Father (Age 42) Maternal Grandfather (Age 92) Maternal Grandmother (Age 85) Mother Alive Paternal Grandfather (Age 71) Paternal Grandmother (Age 69) Social History Tobacco Use Types Packs/Day Years Used Date Smoking Tobacco: Never Passive Smoke Exposure: Past Smokeless Tobacco: Never Tobacco Cessation:Counseling Given: No Comments:na Alcohol Use Standard Drinks/Week Comments Yes 0 (1 standard drink = 0.6 oz pur e alcohol) occasional PHQ-2 Answer Date Recorded Patient Health Questionnaire-2 Score 0 12/09/2023 Comments No Sex and Gender Information Value Date Recorded Sex Assigned at Not on file Legal Sex Female 8:34 PM CDT Gender Identity Not on file Sexual Orientation Not on file 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 Not on file Not on file Last Filed Vital Signs Vital Sign Reading Time Taken Comments Blood Pressure 126/68 12/09/2023 9:19 AM CDT Pulse 74 12/09/2023 9:19 AM CDT Temperature 37.1 C (98.7 F) 12/09/2023 9:19 AM CDT Respiratory Rate 19 12/09/2023 9:19 AM CDT Oxygen Saturation 99% 12/09/2023 9:19 AM CDT Inhaled Oxygen Concentration - - Weight 97.8 kg (215 lb 9.6 oz) 12/09/2023 9:19 A M CDT Height 172.7 cm (5' 7.99 ) 12/09/2023 9:19 AM CD T Body Mass Index 32.79 12/09/2023 9:19 AM CDT Plan of Treatment Health Maintenance Due Date Last Done Comments Cervical Cancer Screening Pap Smear (Age 30 to 64) Every 3 Years 1973 Annual Physical 1976 Hepatitis C 05/03/1991 Hepatitis B Vaccines (1 of 3 - 19+ 3-dose series) 1992 Zoster Vaccines (1 of 2) 05/03/2023 COVID-19 Vaccine (3 - 2023- season) 2023 06/21/2020, 05/11/2020 Influenza Adult (#1) 2023 12/08/2010, 03/30/2009, 01/24/2007 Colorectal Cancer Screening Colonoscopy (10 Years) 01/15/2024 01/14/2019 DTaP, Tdap and Td Vaccines (2 - Td or Tdap) 02/25/2024 02/24/2014, 05/20/2008, 05/09/1998 PHQ-2 (Physician [place]) 02/25/2024 12/09/2023 PHQ-2 (Physician [place]) 12/08/2024 12/09/2023 Mammogram Screening 06/12/2025 06/13/2023, 06/25/2022, 06/25/2022, Additional history exists Cervical Cancer Screening Pap with HPV Testing (Age 30 to 64) Every 5 Years 09/18/2026 09/18/2021 Cervical Cancer Screening with HPV 09/18/2026 Meningococcal B Vaccine Aged Out No l onger eligible based on patient's age to complete this topic Meningococcal Vaccine Aged Out No sean helen eligible based on patient's age to complete this topic Pneumococcal Vaccine: Pediatrics (0 to 5 Years) and At-Risk Patients (6 to 64 Years) Aged Out No longer eligible based on patient's age to complete this topic RSV Immunizations Under 20 Months Aged Out No longer eligible based on patient's age to complete this topic Procedures Procedure Name Priority Date/Time Associated Diagnosis Comments MAMMOGRAM GENERIC (SCAN ORDER) Routine 06/25/2022 OUTSIDE CYTOPATH CERV/VAG IN TERPRET (PAP) 09/18/2021 COLONOSCOPY GENERIC (SCAN ORDER) Routine 01/14/2019 from Last 3 Months or Most Recently Relevant to Health Maintenance Results * MAMMOGRAM (06/25/2022) Anatomical Region Laterality Modality Other [facility] Scanned SCANNING Final Resu lt * PAP SMEAR WITH HPV (09/18/2021) 09/18/2021 [facility] Scanned SCANNING Final Resu lt * COLONOSCOPY (01/14/2019) [facility] Scanned SCANNING Final Resu lt [facility] from Last 3 Months or Most Recently Relevant to Health Maintenance Insurance [facility] Care Teams Cellophane Casting Machine Repairer Relationship Specialty Start Date End Date Katherine Munguia DO [address] [place] [address] PCP - General FAMILY PRACTICE 7/7/20 Pedro Bermeo MD [place] Welder Fabricator CARDIOVASCULAR DISEASE 05/08/17
--- OUTSIDE RECORDS SUMMARY | 2024-04-19 12:32 | XMS_ITS | Encounter Summary ---
Author Organization [facility] Address [address] [place] [address] Care Team Providers Care Acura Sales Consultant Name Role Phone Pedro Bermeo MD Unavailable [phone] Katherine Munguia DO Primary Care Provider [phone] Encounter Details Date Type Department Care Team (Late st Contact Info) Description 02/16/2020 [place] Message Enc [facility] Medical Group Family Medicine - [place] [address], [address] [place] [address] Katherine Munguia DO [address] [place] [address] RE: Other Social History Tobacco Use Types Packs/Day Years Used Date Smoking Tobacco: Never Smokeless Tobacco: Never Alcohol Use Standard Drinks/Week Comments Yes 0 (1 standard drink = 0.6 oz pur e alcohol) occasional PHQ-2 Answer Date Recorded PHQ-2 Score - If the patient scores above 3, please move on to questions 3-9 0 01/04/2020 Comments No Sex and Gender Information Value Date Recorded Sex Assigned at Not on file Legal Sex Female 8:34 PM CDT Gender Identity Not on file Sexual Orientation Not on file 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 No / Unsure 02/03/2020 2:13 PM EQUIP TECH documented as of this encounter Plan of Treatment Not on file documented as of this encounter Visit Diagnoses Not on filedocumented in this encounter Additional Health Concerns Infection Onset Date Last Indicated Resolved Time COVID-19 Rule Out 10/17/2020 10/17/2020 10/18/2020 1:38 PM CDT COVID-19 Rule Out 02/14/2021 02/14/2021 02/16/2021 2:27 AM EQUIP TECH COVID-19 Rule Out 05/04/2021 05/04/2021 05/05/2021 2:45 PM EQUIP TECH COVID-19 Rule Out 05/07/2021 05/07/2021 05/08/2021 1:42 AM CDT COVID-19 Rule Out 03/28/2022 03/28/2022 03/28/2022 8:40 PM EQUIP TECH COVID-19 Rule Out 06/05/2023 06/05/2023 06/05/2023 9:27 AM CDT documented as of this encounter Care Teams Acura Sales Consultant Relationship Specialty Start Date End Date Katherine Munguia DO [address] [place] [address] PCP - General FAMILY PRACTICE 08/31/19 Pedro Bermeo MD [place] Mule Driver CARDIOVASCULAR DISEASE 05/08/17 documented as of this encounter
--- OUTSIDE RECORDS SUMMARY | 2024-04-19 12:32 | XMS_ITS | Encounter Summary ---
Author Organization [facility] Address [address] [place] [address] Care Team Providers Care [place] Alderman Name Role Phone Pedro Bermeo MD Unavailable [phone] Katherine Munguia DO Primary Care Provider [phone] Encounter Details Date Type Department Care Team (Late st Contact Info) Description 03/15/2020 [place] Message Enc [facility] Medical Group Family Medicine - [place] [address] [facility], [address] [place] [phone] Katherine Munguia DO [address] [place] [address] RE: Question Social History Tobacco Use Types Packs/Day Years [...] 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 No / Unsure 03/10/2020 10:13 AM STUDIO MODEL documented as of this encounter Plan of Treatment Not on file documented as of this encounter Visit Diagnoses Not on filedocumented in this encounter Additional Health Concerns Infection Onset Date Last Indicated Resolved Time COVID-19 Rule Out 10/17/2020 10/17/2020 10/18/2020 1:38 PM CDT COVID-19 Rule Out 02/14/2021 02/14/2021 02/16/2021 2:27 AM STUDIO MODEL COVID-19 Rule Out 05/04/2021 05/04/2021 05/05/2021 2:45 PM STUDIO MODEL COVID-19 Rule Out 05/07/2021 05/07/2021 05/08/2021 1:42 AM CDT COVID-19 Rule Out 03/28/2022 03/28/2022 03/28/2022 8:40 PM STUDIO MODEL COVID-19 Rule Out 06/05/2023 06/05/2023 06/05/2023 9:27 AM CDT documented as of this encounter Care Teams [place] Relationship Specialty Start Date End Date Katherine Munguia DO [address] [place] [address] PCP - General FAMILY PRACTICE 08/31/19 Pedro Bermeo MD [place] Videotape Editor CARDIOVASCULAR DISEASE 05/08/17 documented as of this encounter
--- OUTSIDE RECORDS SUMMARY | 2024-04-19 12:32 | XMS_ITS | Clinical Summary ---
Author Organization [facility] Care Team Providers Care Compliance Attorney Name Role Phone Katherine Munguia Primary Care Provider [phone] Allergies Active Allergy Reactions Criticality Noted Date Comments Erythromycin Hives,Unknown 08/26/2007 Lidocaine Unknown 04/23/2017 Does not work, if anything, makes opposite reaction than what it should do. Hypersensitive. Feels pain more. Does not work, if anything, makes opposite reaction than what it should do. Hypersensitive. Feels pain more. Naproxen Hives 10/20/2018 Only happens with Aleve, hives on hands & bottom of feet Naproxen Sodium Hives 10/20/2018 Medications multi-vitamins Tablet Take 1 Tablet by mouth daily. 05/26/2017 Active Coenzyme Q10 (CO Q-10 PO) Co Q-10 Active Active Problems Problem Noted Date Diagnosed Date Chronic rhinitis 06/06/2022 Complete tear of anterior cruciate ligament of k nee 06/06/2022 Costochondritis 06/06/2022 Gastroesophageal reflux disease 06/06/2022 History of TIA (transient ischemic attack) 06/06 Uncomplicated severe persistent asthma Pulmonary embolism 06/06/2022 Severe acute respiratory syn drome coronavirus 2 (SARS-CoV-2) test result unknown 06/06/2022 History of DVT (deep vein thrombosis) 05/25/2017 History of pulmonary embolism 05/25/2017 Immunizations Immunization Administration Dates Next Due Hepatitis A Vaccine 05/10/2000 Inactivated Polio Vaccine 09/24/1999 Influenza Vaccine Nasal 12/08/2010,01/24/2007 MMR Vaccine 04/03/2003 Novel [id number], Injectable 03/30/2009 Rabies, Intradermal Injection 03/14/2005 TD VACCINE 05/20/2008,05/09/1998 TDAP Vaccine 02/24/2014 Typhoid Vaccine, Unspecified Formulation 002 Typhoid, ViCPs 06/23/2021,04/03/2007 Yellow Fever Vaccine 12/27/2001 Family History Medical History Relation Name Comments Bladder cancer Maternal Aunt 1 Breast Cancer Maternal Aunt 1 Chronic Obstructive Pulmonary Disease Maternal Aunt 1 Emphysema Maternal Aunt 1 Breast Cancer Maternal Aunt 2 Colon Cancer Maternal Aunt 2 Bladder cancer Maternal Grandmother Diabetes Paternal Grandfather Leukemia/Lymphoma Paternal Grandfather Diabetes Paternal Grandmother Relation Name Status Comments Father Maternal Aunt 1 Maternal Aunt 2 Alive Maternal Grandmother Paternal Grandfather Paternal Grandmother Social History Tobacco Use Types Packs/Day Years Used Date Smoking Tobacco: Never Smokeless Tobacco: Never Tobacco Cessation:Counseling Given: Not Answered Alcohol Use Standard Drinks/Week Comments Yes 1 (1 standard drink = 0.6 oz pur e alcohol) monthly Comments Unknown Sex and Gender Information Value Date Recorded Sex Assigned at Not on file Legal Sex Female 10:58 AM GOVERNMENT SALES MANAGER Gender Identity Not on file Sexual Orientation Not on file Last Filed Vital Signs Vital Sign Reading Time Taken Comments Blood Pressure 128/72 06/07/2022 10:57 AM CDT Pulse 64 06/07/2022 10:57 AM CDT Temperature 36.8 C (98.2 F) 06/07/2022 10:57 AM CDT Respiratory Rate 18 06/07/2022 10:5 7 AM CDT Oxygen Saturation 98% 05/31/2022 9:41 AM CDT Inhaled Oxygen Concentration - - Weight 92.9 kg (204 lb 11.2 oz) 023 10:57 AM CDT Height 172.7 cm (5' 8 ) 06/07/2022 10:5 7 AM CDT Body Mass Index 31.12 06/07/2022 10:57 AM CDT Plan of Treatment Health Maintenance Due Date Last Done Comments Hepatitis C Virus (HCV) Screening 1973 Hepatitis B Immunization (1 of 3 - 19+ 3-dose series) 1992 Pneumococcal Immunization (5 0+ years) (1 of 2 - PCV) 1992 Pap Smear 1994 Cervical Cancer Screening (CCS) 05/03/2003 HPV/Cotest 05/03/2003 Colonoscopy 2018 Colorectal Cancer Screening 2018 Mammogram 04/21/2020 04/21/2019 Cologuard 05/03/2023 Immunochemical Fecal Occult Blood 05/03/2023 Zoster Immunization (1 of 2) 05/03/2023 Influenza Immunization (#1) 10/26/202311/24, 01/24/2007 SARS-COV-2 Immunization ( season) 2023 Respiratory Syncytial Virus (RSV) Immunization (Adult) (1 - 1-dose 75+ series) 2048 DTaP/Tdap/Td Immunization Discontinued 2014, 05/20/2008, 05/09/1998 Discussion re Starting/Frequency of Mammograms Discontinued 04/21/2019 Meningococcal Immunization (ACWY) Aged Out No longer eligible based on patient's age to complete this topic Rotavirus Immunization Aged Out No lo nger eligible based on patient's age to complete this topic Insurance [facility] Care Teams Compliance Attorney Relationship Specialty Start Date End Date Katherine Munguia DO [address] [place] [id number] PCP - General Family Medicine 05/21/22
--- OUTSIDE RECORDS SUMMARY | 2024-04-19 12:32 | XMS_ITS | Encounter Summary ---
Author Organization [facility] Address [address] [place] [address] Care Team Providers Care Fish Pitcher Name Role Phone Pedro Bermeo MD Unavailable [phone] Katherine Munguia DO Primary Care Provider [phone] Encounter Details Date Type Department Care Team (Late st Contact Info) Description 03/17/2022 [place] Message Enc [facility] Medical Group Family Medicine - [place] [address], [address] [place] [phone] Katherine Munguia DO [address] [place], [place] [id number] [place] Social History Tobacco Use Types Packs/Day Years [...] 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 No / Unsure 03/19/2022 12:52 PM PROFESSOR OF NURSING documented as of this encounter Plan of Treatment Not on file documented as of this encounter Visit Diagnoses Not on filedocumented in this encounter Additional Health Concerns Infection Onset Date Last Indicated Resolved Time COVID-19 Rule Out 03/28/2022 03/28/2022 03/28/2022 8:40 PM PROFESSOR OF NURSING COVID-19 Rule Out 06/05/2023 06/05/2023 06/05/2023 9:27 AM CDT Assessment Noted Time PHQ-9 Depression Total Score: 0 09/27/19 22 2:18 PM CDT documented as of this encounter Care Teams Fish Pitcher Relationship Specialty Start Date End Date Katherine Munguia DO [address] [place] [address] PCP - General FAMILY PRACTICE 08/31/19 Pedro Bermeo MD [place] Director Of Institutional Sales CARDIOVASCULAR DISEASE 05/08/17 documented as of this encounter
--- OUTSIDE RECORDS SUMMARY | 2024-04-19 12:32 | XMS_ITS | Encounter Summary ---
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
--- OUTSIDE RECORDS SUMMARY | 2024-04-19 12:32 | XMS_ITS | Referral Summary ---
Author Organization [facility] al Address [address] [place] [address] Care Team Providers Care Mirror Maker Name Role Phone Katherine Munguia Primary Care Provider Aretha Robin MD Unavailable [phone] Allergies Active Allergy Reactions Criticality Noted Date Comments Erythromycin Hives,Rash Medium 08/26/2007 Reaction: Lidocaine Other (See comments),Unknown Low 03/15/2016 Does not work, if anything, makes opposite reaction than what it should do. Hypersensitive. Feels pain more. (Discovered this with dental procedures and ACL surgery(10 yrs ago) Naproxen Hives,Unknown Medium 10/20/2018 Only happens with Aleve, hives on hands & bottom of feet Patient states she allergic to aleve but can have generic naproxen Medications chlorhexidine (PERIDEX) 0.12 % solutionIndicat ions:Gingivitis Apply 15 mL to the mouth or throat nightly 2 Active EPINEPHrine 0.3 mg/0.3 mL auto-injection syringe Inject 0.3 mL (0.3 mg total) into the muscle as instructed as needed [address] (PROTONIX) 20 mg EC tablet Take 1 tablet (20 mg total) by mouth daily as needed for heartburn or indigestion 3 Active aspirin 81 mg enteric coated tablet Take 1 tablet (81 mg total) by mouth daily as needed for pain Active meloxicam (MOBIC) 15 mg tablet Take 1 tablet (15 mg total) by mouth daily for 10 days 10 tablet 4 Active oxyCODONE-aceta minophen (PERCOCET) 5-325 mg per tabletIndicatio ns:Pain Take 1-2 tablets by mouth every 6 (six) hours as needed for pain 40 tablet 4 Active cephalexin (KEFLEX) 500 mg capsule 4 Active Active Problems Problem Noted Date Diagnosed Date S/P ACL reconstruction 04/08/2023 S/P medial meniscus repair of right knee 024 Peripheral tear of medial me niscus of right knee as current injury 03/31/2023 Chondromalacia of right patella 03/31/2023 Sprain of anterior cruciate ligament of right kn ee 03/19/2023 Rupture of anterior cruciate ligament of right k nee 03/18/2023 Effusion of right knee 03/18/2023 Allergic rhinitis due to animal hair and dander 02/25/2023 Allergic rhinitis due to pollen 02/25/2023 Chronic allergic conjunctivitis 02/25/2023 Chronic rhinitis 06/06/2022 Complete tear of anterior cruciate ligament of k nee 06/06/2022 Costochondritis 06/06/2022 Gastroesophageal reflux disease 06/06/2022 Uncomplicated severe persistent asthma 3 Pulmonary embolism 06/06/2022 Severe acute respiratory syn drome coronavirus 2 (SARS-CoV-2) test result unknown 06/06/2022 Kidney stones 01/14/2022 Lump in upper inner quadrant of left breast 11/24 Visit for screening mammogram 10/17/2020 Class 1 obesity 05/25/2017 Encounter for screening for malignant neoplasm o f colon 04/16/2017 Arthralgia of ankle 01/02/2017 Exostosis 03/04/2016 Instability of right ankle joint 03/04/2016 Left knee pain 03/04/2016 Acquired deformity of ankle and foot 01/10/2016 Peroneal tendinitis of right lower extremity Primary osteoarthritis of ankle 01/10/2016 Abnormal menstrual cycle 09/15/2015 Left upper quadrant pain 09/15/2015 Temporary cerebral vascular dysfunction 02/10/20 15 Otalgia 12/08/2014 Skin mole 12/14/2013 Pes planus 11/26/2011 Dizziness and giddiness 10/15/2010 Other specified disorders of Eustachian tube, unspecified ear 10/15/2010 Social History Tobacco Use Types Packs/Day Years Used Date Smoking Tobacco: Never Smokeless Tobacco: Never Tobacco Cessation:Counseling Given: Not Answered AUDIT-C Answer Date Recorded Q1: How often do you have a drink containing alc ohol? Monthly or less 03/21/2023 Q2: How many drinks containi ng alcohol do you have on a typical day when you are drinking? 1 or 2 03/21/2023 Q3: How often do you have si x or more drinks on one occasion? Never 03/21/2023 Personal Safety Answer Date Recorded Have you ever been in or are you currently in a harmful physical or emotional relationship or is someone making you feel afraid or unsafe? Denies 03/28/2023 Comments No Sex and Gender Information Value Date Recorded Sex Assigned at Not on file Legal Sex Female 5:13 AM BLEACH PLANT OPERATOR Gender Identity Not on file Sexual Orientation Not on file Last Filed Vital Signs Vital Sign Reading Time Taken Comments Blood Pressure 129/70 03/28/2023 4:45 PM BLEACH PLANT OPERATOR Pulse 68 03/28/2023 4:50 PM BLEACH PLANT OPERATOR Temperature 36.2 C (97.2 F) 03/28/2023 3:10 PM BLEACH PLANT OPERATOR Respiratory Rate 15 03/28/2023 4:50 PM BLEACH PLANT OPERATOR Oxygen Saturation 95% 03/28/2023 4:50 PM BLEACH PLANT OPERATOR Inhaled Oxygen Concentration - - Weight 98.8 kg (217 lb 12.8 oz) 024 11:55 AM BLEACH PLANT OPERATOR Height 172.7 cm (5' 8 ) 03/28/2023 11:5 5 AM BLEACH PLANT OPERATOR Body Mass Index 33.12 03/28/2023 11:55 AM BLEACH PLANT OPERATOR Plan of Treatment Not on file Medical Devices Implanted Type Area Therapeutic Consultant Device Identifier Shelf Expiration Date Model / Serial / Lot [employer] [place] Meniscal Repair Curved 2 0 Fiberwire Fiberstitch Ar-4570 - [id number] Implanted:Qty: 1 on 03/28/2023 by Ricky Johns IV, MD at [facility] Right: Knee [employer] 11/23/2026 AR-4570 / / [id number] [employer] [place] Meniscal Repair Curved 2 0 Fiberwire Fiberstitch Ar-4570 - [id number] Implanted:Qty: 1 on 03/28/2023 by Ricky Johns IV, MD at [facility] [place] Right: Knee [employer] 11/23/2026 AR-4570 / / [id number] [employer] Screw Fastthread Biocomposite Interference 7mm X 20mm Ar-4020c-07 - [id number] Implanted:Qty: 1 on 03/28/2023 by Ricky Johns IV, MD at [facility] [place] Right: Femur [employer] 08/23/2026 AR-4020C-0 7 / / [id number] [employer] Screw Fastthread Biocomposite Interference 9mm X 20mm Ar-4020c-09 - [id number] Implanted:Qty: 1 on 03/28/2023 by Ricky Johns IV, MD at [facility] [place] Right: Tibia [employer] 11/23/2026 AR-4020C-0 9 / / [id number] Procedures Procedure Name Priority Date/Time Associated Diagnosis Comments SCREENING MAMMOGRAM BILATERAL W JUVE Schedule Routine, Read Routine (OP Routine) 06/13/2023 1:29 PM CDT Encounter for screening mammogram for malignant neoplasm of breast from Last 3 Months or Most Recently Relevant to Health Maintenance Results * Screening Mammogram Bilateral W Juve (06/13/2023 1:29 PM CDT) Anatomical Region Laterality Modality Breast Bilateral Mammography Impressions 06/13/2023 2:09 PM CDT BI-RADS ATLAS category (overall): 1 - Negative There is no mammographic evidence of malignancy. A 1 year screening mammogram is recommended. The patient has been or will be contacted. We recommend annual screening mammography for women at average risk of breast cancer beginning at age 40, based on guidelines of the [place] [employer] (ACR Practice Parameter for the Performance of Screening and Diagnostic Mammography) and [place] [employer]. For women with and elevated risk of breast cancer, please refer to the ACR Practice Parameter for specific screening recommendations. The patient will be entered into a reminder system with a target due date of 1 year for her next screening exam. Narrative 06/13/2023 2:09 PM CDT Screening Mammogram Bilateral W Juve: 06/13/23 The study was acquired using full field digital technology and interpreted from soft copy. 2D digital mammographic views, as well as 3D digital tomosynthesis were performed in the CC and MLO projections. CLINICAL: Encounter for screening mammogram for malignant neoplasm of breast. No relevant medical history has been documented for this patient. History of breast cancer in Mother's Sister, Mother's Sister, Cousin. COMPARISONS: 06/25/2022 Diagnostic Mammogram Bilateral W Juve 01/23/2021 Diagnostic Mammogram Bilateral W Juve 05/25/2020 Diagnostic Mammogram Bilateral W Juve 08/10/2019 Screening Mammogram Bilateral W Juve 06/02/2018 Screening Mammogram Bilateral W Juve 04/23/2017 Screening Mammogram Bilateral W Juve BREAST TISSUE: The breasts have scattered areas of fibroglandular density. FINDINGS: No suspicious masses, suspicious calcifications, or other suspicious findings are seen within either breast. There has been no suspicious change. us Provider Transcribed Order IMG MAMMO PROCEDURES Final Result from Last 3 Months or Most Recently Relevant to Health Maintenance Insurance [facility] Address: [facility] [address] [place] [address] [facility] Advance Directives For more information, please contact: [phone] * Full Code (Latest Code Status on File) Date Activated Date Inactivated Comments 03/28/2023 3:23 PM 03/28/2023 9:46 PM Care Teams Mirror Maker Relationship Specialty Start Date End Date Katherine Munguia DO [address] [address] PCP - General Family Medicine 01/10/21 Aretha Robin MD [address] [address] Consulting Physician Obstetrics and Gynecology 08/21/21
--- OUTSIDE RECORDS SUMMARY | 2024-04-19 12:32 | XMS_ITS | Patient Health Record ---
Author Organization [facility] Address [address] [place] [address] Care Team Providers Care Commutator Presser Name Role Phone Katherine Munguia DO Primary Care Provider Unavaila Corey Fitch Unavailable [phone] ZZ-Migration, Provider Unavailable Unavailab le Allergies Allergen (clinical drug ingredient) Drug/Non Drug Allergy documented on EMR Reaction Allergy Type Onset Date Status AIM TOOTHPASTE (uncoded) hives Allergy Active SOME URIEL (uncoded) no numbing. Intensifies the pain Allergy Active Aleve hives bottom of feet and hand palms Drug Allergy Active erythromycin Erythromycin hives Drug Allergy A ctive Reason For Referral No Information Social History Tobacco Use: Social History Observation Description Date Details (start date - stop date) Never Smoker NA - NA Smoking Smart Form: Question Answer Notes Are you a: never smoker Problems Problem Type SNOMED Code ICD Code Onset Dates Problem Status W/U Status Risk Notes Problem Chronic allergic conjunctivitis (82153574) Other chronic allergic conjunctivitis (H10.45) Active confirmed Problem Allergic rhinitis caused by pollen (disorder) (61140837) Allergic rhinitis due to pollen (J30.1) Active confirmed Problem Allergic rhinitis (93448827) Other allergic rhinitis (J30.89) Active confirmed Problem Chronic rhinitis (11787905) Chronic rhinitis (J31.0) Active confirmed Problem Uncomplicated mild persistent asthma (898384243) Mild persistent asthma, uncomplicated (J45.30) Active confirmed Problem Uncomplicated moderate persistent asthma (774892962) Moderate persistent asthma, uncomplicated (J45.40) Active confirmed Problem Uncomplicated severe persistent asthma (536879317) Severe persistent asthma, uncomplicated (J45.50) Active confirmed Problem Allergic rhinitis caused by animal hair and dander (980168404566362) Allergic rhinitis due to animal (cat) (dog) hair and dander (J30.81) Active confirmed Encounters Encounter Location Date Provider Diagnosis [facility] [place] [address] [place] [address] 08/09/2023 Provider ZZ-Migration Plan Of Treatment No Information Insurance Providers Payer Name Payer Address Payer Phone Subscriber Number Group Number Insured Name Patient Relationship to Insured Coverage Start Date Coverage End Date [facility] [address] [place] [address] [id number] Monica Li Self - patient is the insured Medical (General) History Surgical History Surgery Date(Month/Year) Tonsillectomy 07/26/1979 Right Wrist Tendon 09/07/2002 Apendectomy 06/05/2004 Left ACL 01/14/2008 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
--- OUTSIDE RECORDS SUMMARY | 2024-04-19 12:32 | XMS_ITS | Patient Health Record ---
Author Organization [address] [facility] Address [address] [facility] [address] [place] [address] Care Team Providers Care Auto Tester Name Role Phone Dr Katherine Munguia Primary Care Provider Janis Pichardo Unavailable [phone] Allergies Allergen (clinical drug ingredient) Drug/Non Drug Allergy documented on EMR Reaction Allergy Type Onset Date Status Aleve Unknown Drug Allergy Active erythromycin Erythromycin Unknown Drug Allergy A ctive lidocaine Lidocaine Unknown Drug Allergy Active Reason For Referral No Information Medications Medication SIG (Take, Route, Frequency, Duration) Notes Start Date End Date Status Nyzapoaf-Swuonzldh-Qtryr eth 0.1 % 1-2 drops to affected toe(s) until healed topical QD for 14 days Not-Takin g Gentamicin Sulfate A ctive Social History Tobacco Use: Social History Observation Description Date Details (start date - stop date) Never Smoker NA - NA Tobacco Use/Smoking Question Answer Notes Are you a nonsmoker Are you a nonsmoker Problems Problem Type SNOMED Code ICD Code Onset Dates Problem Status W/U Status Risk Notes Problem [id number] Raynaud's disease without gangrene (I73.00) Active confirmed Plan Of Treatment No Information Insurance Providers Payer Name Payer Address Payer Phone Subscriber Number Group Number Insured Name Patient Relationship to Insured Coverage Start Date Coverage End Date [facility] [address] [place] [address] [id number] Jeff Deng Self - patient is the insured Medical (General) History Surgical History Surgery Date(Month/Year) Left ACL
--- OUTSIDE RECORDS SUMMARY | 2024-04-19 12:32 | XMS_ITS ---
Author Organization [facility] Address [address] [place] [address] Care Team Providers Care Automotive Finance Manager Name Role Phone Katherine Munguia DO Primary Care Provider Unavaila Corey Fitch Unavailable [phone] ZZ-Migration, Provider Unavailable Unavailab le Allergies Allergen (clinical drug ingredient) Drug/Non Drug Allergy documented on EMR Reaction Allergy Type Onset Date Status AIM TOOTHPASTE (uncoded) hives Allergy Active SOME URIEL (uncoded) no numbing. Intensifies the pain Allergy Active Aleve hives bottom of feet and hand palms Drug Allergy Active erythromycin Erythromycin hives Drug Allergy A ctive REASON FOR VISIT [facility] Conversion Encounter Encounters Encounter Location Date Provider Diagnosis [facility] [address] [place] [address] 08/09/2023 Provider ZZ-Migration Plan Of Treatment No Information Progress Notes * GLADYSMonica RODRIGUEZ LDOB: [birth year] (48 yo F)Acc No.[id number]:08/09/2023 Patient: Monica ARREDONDO Provider: Petra Andrade :1975 A ge:48 Y S ex:Female Date:08/09/2023 Address:[address], [facility] Pcp:Katherine Ezra, DO Subjective: * Chief Complaints: * 1 . Multum To Med[employer]pan Conversion Encounter. * Medical History: * Allergies: E rythromycin: hives, Aleve: hives bottom of feet and hand palms, SOME URIEL : no numbing. Intensifies the pain, AIM TOOTHPASTE: hives. Objective: * Vitals: Assessment: Plan: * Treatment: * Billing Information: * Visit Code: * Procedure Codes: * Electronic signature of Michael MONTANEZ-Migration on 04/19/2024 at 12:32 PM GAUGER CHIEF Sign off status: Pending * Provider: Petra lucio Migration Date: 0 08/09/2023 Generated for Lamar guzman/Dane/Bowenitting on: 0 04/19/2024 12:32 PM GAUGER CHIEF
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
--- OUTSIDE RECORDS SUMMARY | 2024-04-19 12:32 | XMS_ITS | Encounter Summary ---
Author Organization [facility] Address [address] [place] [address] Care Team Providers Care Career Services Manager Name Role Phone Pedro Bermeo MD Unavailable [phone] Katherine Munguia DO Primary Care Provider [phone] Encounter Details Date Type Department Care Team (Late st Contact Info) Description 03/30/2022 [facility] Therapeuticst Message Enc [facility] Family Medicine - [place] [address], [address] [place] [phone] Katherine Munguia DO [address] [place] [address] Rash is back. 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 No / Unsure 03/28/2022 2:45 PM [employer]AT BU[employer] REPAIRER documented as of this encounter Plan of Treatment Not on file documented as of this encounter Visit Diagnoses Not on filedocumented in this encounter Additional Health Concerns Infection Onset Date Last Indicated Resolved Time COVID-19 Rule Out 06/05/2023 06/05/2023 06/05/2023 9:27 AM CDT Assessment Noted Time PHQ-9 Depression Total Score: 0 09/27/19 22 2:18 PM CDT documented as of this encounter Care Teams Career Services Manager Relationship Specialty Start Date End Date Katherine Munguia DO [address] [place] [address] PCP - General FAMILY PRACTICE 08/31/19 Pedro Bermeo MD [place] Office Nurse Practitioner CARDIOVASCULAR DISEASE 05/08/17 documented as of this encounter
--- OUTSIDE RECORDS SUMMARY | 2024-04-19 12:34 | XMS_ITS | Data Portability ---
Author Organization [facility] the[facility], [facility], [facility] OFFICE Address [address] [place] [id number] Assessment Encounter Date Assessment Date Assessment LastModified by Organization Details LastModified Time 06/24/2023 06/24/2023 With a lengthy discussion regarding treatment options related to her right ankle. Presently I recommend Kinesio tape to help with improved alignment of the tibiotalar joint. 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 I did explain to her that perhaps stage pro low therapy would be indicated following biologics treatments. She voiced understanding of this. We will see her back to move forward with ortho biologics treatments. [email or web address] Not available 06/24/2023 21:11:26 07/16/2023 07/16/2023 48 y/o F here fo r a group medical visit focusing on optimizing BMAC procedure for the right ankle. Preprocedural screening labs were reviewed and discussed with patient, and post-procedure plan was discussed in detail. Feel patient would benefit from attending health optimization program for follow up of A1C and CRP. She was given information regarding same. All questions answered. May follow up if she wishes to pursue health optimization. Return to clinic sooner for worsening symptoms. Greater than 20 minutes was spent with the patient in direct evaluation and subsequent care planning. Note: billing done solely on interaction of patient with CAMMIE [email or web address] Not available 07/23/2023 18:35:04 Plan of Treatment Reminders Order Date Submit Date Provider Last Modified By Organization Details Last Modified Time Details Appointments None recorded. Lab CBC w/ auto diff - [facility] 024 NICOL [facility], [address], [address], [place], [address], 4 13:48:41 vitamin D, 25-hydrox y, total, serum - [facility] 024 [email or web address] [facility], [address], [address], [place], [address], 4 17:52:33 HbA1c (hemoglob in A1c), blood - [facility] 024 [email or web address] [facility], [address], [address], [place], [address], 4 17:52:33 CRP, high sensitivi ty, serum or plasma - [facility] [email or web address] [facility], [address], [address], [place], [address], 4 17:52:33 testoster one, free + total, serum - [facility] [email or web address] [facility], [address], [address], [place], [address], 4 17:52:33 Referral None recorded. Procedures None recorded. Surgeries None recorded. Imaging XR, ankle 024 [email or web address] Not available 4 17:52:33 Medication Orders None recorded. Patient TargetsNo targets recorded. Patient InstructionsNo instructions recorded. Reason for Referral None Reported. Results Created Date Observation Date Name Description Value Unit Range Abnormal Flag Note LastModifiedBy Organization Detail LastModifiedTime 06/26/19 24 09/20/2022 CT, ankle , w/o contr ast No observ ation record ed. BARCODE Not Available 2023 17:08:44 Result Notes None recorded. Procedures Surgical History Date Name Laterality Status Provider Name and Address Organization Details Recorded Time 06/24/19 24 Radiographs completed Hal Fisher [address], [place], [address], [place] - [facility], [facility] 06/24/2023 21:09:57 06/24/19 24 Ultrasound Examination completed Hal Fisher [address], [place], [address], [place] - [facility], [facility] 06/24/2023 21:08:56 03/27/19 24 reconstruction of anterior cruciate ligament of knee joint completed Ricardo Jimenezugh [place] - [facility], [facility] 06/24/2023 14:47:47 09/25/19 22 Wrist arthroscopy/surger y completed Ricardo Jimenezugh [place] - [facility], [facility] 06/24/2023 14:48:29 10/26/19 08 reconstruction of anterior cruciate ligament of knee joint completed Ricardo Jimenezugh [place] - [facility], [facility] 06/24/2023 14:47:31 04/25/19 02 Wrist arthroscopy/surger y completed Ricardo Jimenezugh [facility], [facility] 06/24/2023 14:48:50 Imaging Results Imaging Date Name Status LastModified by Organiz ation Details LastModified Time 09/20/2022 CT, ankle, w/o contrast completed [facility] Information not available 06/26/2023 17:08:44 Procedure Notes None recorded. Medical Equipment None Reported. Allergies Allergen ID Allergen Name Allergen Category Reaction Reaction Severity Criticality Documentation Date Start Date Code Code System Note Provider Name and Address Organization Details Recorded Time 02754 erythromy delmer medicatio n hives Not available Not available 06/24/2023 4053 RxNorm Ricardo Barraza null, [place] - [facility], [facility] 4 14:39:31 86420 Aleve medicatio n hives Not available Not available 06/24/2023 97356 1 RxNorm Ricardo Barraza null, [place] - [facility], [facility] 4 14:39:57 91927 lidocaine medicatio n Not available Not available Not available 06/24/2023 6387 RxNorm Ricardo Barraza null, [place] - [facility], [facility] 4 14:40:53 Medications Name Sig Start Date Stop Date Status Note LastModified by Organization Details LastModified Time prednisone 10 mg tablet active Not Available Not Available Not Available doxycycline hyclate 100 mg capsule active Not Available Not Available N ot Available ketoconazole 2 % shampoo USE WASH DAILY DIRECTED active Not Available Not Available No t Available hydrocodone 5 mg-acetamino phen 325 mg tablet Take 1 tablet every 6 hours by oral route as needed for 7 days, for right ankle pain. active Not Available Not Available Not Available meloxicam 15 mg tablet active Not Available Not Available No t Available amoxicillin 500 mg tablet active Not Available Not Available Not Available pantoprazole 20 mg tablet,delay ed release active Not Available Not Available N ot Available oxycodone-ac etaminophen 5 mg-325 mg tablet TAKE 1 TO 2 TABLETS BY MOUTH EVERY 6 HOURS NEEDED FOR PAIN active Not Available Not Available No t Available tamsulosin 0.4 mg capsule active Not Available Not Available Not Available cephalexin 500 mg capsule Take 4 capsules (total of 2g) po one hour prior to procedure. One time dose. active Not Available Not Available No t Available diazepam 10 mg tablet Arrive for appointment 15 mins early and take 1 tablet while in clinic. Repeat dose as directed by physician. active Not Available Not Available N ot Available chlorhexidin e gluconate 0.12 % mouthwash USE NIGHTLY AFTER BRUSHING AND FLOSSING active Not Available Not Available No t Available Opzelura 1.5 % topical cream active Not Available Not Available Not Available Vitals Date Recorded Body height Body mass index (BMI) Body weight Provider Name and Address Organization Details Last Updated DateTime 06/24/2023 172.72 cm 30.4 kg/m2 05634.47 g Ricardo Barraza [facility] [place] 06/24/2023 14:38:22 Date Recorded Body height Body mass index (BMI) Body weight Heart rate Systolic blood pressure Diastolic blood pressure Provider Name and Address Organization Details Last Updated DateTime 172.72 cm 30.4 kg/m2 95663.4 7 g 74 /min 145 mm[Hg] 85 mm[Hg] Gillian Macias [facility], [facility] 14:37:15 Social History Question Answer Notes LastModified by Organizat ion Details LastModified Time Tobacco Smoking Status Never Smoker Ricardo Barraza [facility], [facility] 06/24/2023 14:46:45 What Is Your Level Of Alcohol Consumption? Occasional Information not available 06/24/2023 What Is Your Relationship Status? Information not available 06/24/2023 Do You Use Any Illicit Or Recreational Drugs? No Information not available 06/24/2023 Do You Or Have You Ever Used Any Other Forms Of Tobacco Or Nicotine? No Information not available 06/24/2023 Sex: Unknown Functional Status Question Answer Note LastModified by Organization D etails LastModified Time What is your exercise level? Moderate Information not available 06/24/2023 Mental Status None recorded. Family History Relationship Description Onset Age of this Age Resolved Age Notes LastModified by Organization Details LastModified Time Mother Arthritis Not available 06/24/2023 14:41:26 Paternal Grandfather Heart disease Not available 2023 14:41:56 Paternal Grandfather Hypercholest erolemia Not available 2023 14:42:49 Paternal Grandfather Asthma Not available 2023 14:43:01 Paternal Grandfather Diabetes mellitus Not available 2023 14:43:17 Paternal Grandfather Hypothyroidi sm Not available 2023 14:44:01 Maternal Grandmother Diabetes mellitus Not available 2023 14:43:16 Notes:cancer: m. grandmother , p. grandfather, aunts, cousins Medical History Condition Response HIV or AIDS N Coronary Artery Disease N Other Cancer N Gout N Kidney Stones N Hyperthyroidism N Breast Cancer N Hernia N Head Trauma/Injury Y Lung Cancer N Blood Clots N COPD N Depression N Hypothyroidism N Lung Disease N Pneumonia N Pacemaker N Parkinson's N Anxiety Disorder N Multiple Sprains Y Arthritis Y Alcohol / Substance Abuse N Kidney Cancer N Cancer N Stroke N Melanoma N Mone Danlos Syndrome (EDS) N Bowel Dysfunction N Neck Injury N Leg or Foot Ulcers N High Cholesterol N Skin Cancer N Liver Disease N Rheumatoid Arthritis N Headaches N Fibromyalgia N Gastric Issues N Concussion N Kidney Disease N Heart Problems N Scoliosis N Chronic use of Pain Medication N Prostate Cancer N Migraines N Thyroid Problems N Alzheimers N DVT N Autoimmune Disorder N Anemia N Multiple Sclerosis N Tendon Tear Y Ulcers N Heart Attack (ID) N Osteopenia N Diabetes N Bleeding Disorder N Seizures/Epilepsy N Cardiac Stent N Tuberculosis N A-FIB N BPH N Lymphoma N Urinary Tract Infection N Back Problems N Diverticulitis N Dementia N Asthma N Vision Problems N Lupus N Fdc Medication Use N Peripheral Vascular Disease N Sleep Apnea N Sleep Disorder N GERD/Reflux N Hepatitis N Aneurysm N Thyroid Cancer N Heart Disease N Bronchitis N Pulmonary Embolism N Hypertension N Osteoporosis N Gynecological HistoryNo gynecological history recorded. Obstetrics History GPAL:G 0 P 0 0 0 0 Past Encounters Encounter ID Performer Location Encounter Start Date Encounter Closed Date Diagnosis/Indication Diagnosis SNOMED-CT Code Diagnosis ICD10 Code Diagnosis Note [id number] aHl Phillip [facility] [address] [facility] [place] [address] 06/24/2023 13:56:39 06/24/2023 16:23:44 Pain of right ankle joint 3382592681 5818352 M25.571 Screening procedure 2012 5006 Z13.9 R53.83 M89.9 M94.9 Z01.812 E55.9 Z13.228 Z13.1 M02.80 Instabilit y of joint of right ankle 0438593499 963040 M25.371 [id number] JEFFERY SEAY PA-C [facility] [address] [facility] [place] [address] 07/16/2023 13:15:46 07/24/2023 14:37:19 Pain of right ankle joint 9987040663 5748950 M25.571 Instabilit y of joint of right ankle 2565645017 635458 M25.371 Vitamin D deficiency 347 24022 E55.9 R53.83 M89.9 M94.9 Recommend vitamin D 50,000 IU/week x12 weeks and recheck. Health Concerns Section Related Observation LastModified by Organization Detai ls LastModified Time None Recorded Concern Status LastModified by Organization Details LastModified Time None Recorded Advance Directives Directive None Recorded Payers Encounter Date Sequence Insurance Name Policy Number Policy Gandhi Covered Member ID Gandhi Member ID Guarantor Name 06/24/2023 1 [place] [employer] [facility] - [employer] (PPO) [id number] Monica Gonzalezer [id number] Monica Li 07/16/2023 1 [place] [facility] [facility] [place] [place]) 104 Monica Dominguez [id number] Monica Li Notes Date Note Type Note Provider Name and Address Organization Details Recorded Time 06/24/2023 text/html Patient is a 48-year-old female presents today with chief complaint of right ankle pain. The patient states she has had ankle pain ongoing for the past 10 years. She denies any specific injury that she can recall however over the past 10 years she has been evaluated by multiple providers in the recommendation for large reconstruction surgeries has been made. She states that over the past few months she has been having increasing right ankle pain difficulty standing and walking greater than 10 minutes. She states that she has difficulty with standing on hard surfaces. She states that she has multiple bouts of instability where the ankle wants to twist underneath her. Currently she rates her pain as an 8/10 Hal Phillip [address], [place], [address], [facility] 06/24/2023 21:11:30 07/16/2023 text/html 48 y/o F present s for group medical visit focusing on treatment optimization for upcoming biologic treatment. Patient has an upcoming BMAC treatment scheduled for the right ankle on 08/05/2023. She presents today for lab review and to discuss post-procedural recommendations. Today she reports continued right ankle pain, which has been ongoing for over 10 years without injury. She denies new or worsening symptoms since her initial visit on 06/24/2023. She otherwise denies acute complaints, including no fever or recent illness, CP, SOB. JEFFERY SEAY PA-C [address], [place], [address], [facility] 07/23/2023 18:35:13 OBGyn Episode No OBEpisode recorded.
--- OUTSIDE RECORDS SUMMARY | 2024-04-19 12:35 | XMS_ITS | Data Portability ---
Author Organization [facility] , [facility] Address [address] [place] [address] Assessment No assessment recorded. Plan of Treatment Reminders Order Date Submit Date Provider Last Modified By Organization Details Last Modified Time Details Appointments None recorded. Lab lh + FSH, serum 2022 023 [facility], [address] [place], [address], 3 12:30:26 pap, LB 2022 023 [facility], [address] [place], [address], 3 11:21:20 HPV E6+E7 mRNA, qualitativ e PCR, cervix 2022 023 [facility], [address] [place], [address], 3 09:59:39 FSH (follicle- stimulatin g hormone), serum 2021 022 [email or web address] [employer] [facility], [address] [place], [address], 2 18:07:12 HPV E6+E7 mRNA, qualitativ e PCR, cervix 2021 022 [employer], [address] [place], [address], 2 14:59:44 pap, LB 2021 022 [facility], [address] [facility], [place], [address], 2 15:33:41 Referral None recorded. Procedures None recorded. Surgeries None recorded. Imaging MAMMO, screening, digital, bilateral 2023 024 [email or web address] [facility] Central Scheduling, [address] [place], [address], 5 09:43:12 MRI, breast, bilateral, w/wo contrast 2022 023 [email or web address] 3 [facility] Central Scheduling, [address] [place], [address], 3 12:42:49 MAMMO, screening, digital, bilateral 2022 023 [email or web address] [facility] Central Scheduling, [address] [place], [address], 4 16:08:50 US, breast, unilateral - Left breast U/S if indicated. CBE in office WNL. L sided breast pain in Upper, Outer quadrant/a xillary area noted for the past week at time of visit on 05/01/22. Last breast imaging in 12/2021 MRI that was WNL per pt. BRCA negative, TC Lifetime risk 20.4%. [address] Central Scheduling, [address] [place], [address], 3 09:23:48 MAMMO, diagnostic , digital, unilateral - Dx mammogram of the L breast with U/S if indicated. CBE in office WNL. L sided breast pain in Upper, Outer quadrant/a xillary area noted for the past week at time of visit on 05/01/22. Last breast imaging in 12/2021 MRI that was WNL per pt. BRCA negative, TC Lifetime risk 20.4%. [address] Central Scheduling, [address] [place], [address], 09:23:39 MRI, breast, bilateral, w/wo contrast 2021 022 [facility] Central Scheduling, [address] [place], [address], 11:58:32 MAMMO, screening, digital, bilateral 2021 022 [facility] Central Scheduling, [address] [place], [address], 11:58:32 Medication Orders None recorded. Patient TargetsNo targets recorded. Patient Instructions Encounter Date Encounter Id Patient Instructions Last Modified By Organization Details Last Modified Time 01/29/2023 [id number] body mass index: care instructions dariela Not available 01/30/2023 09:22:47 mammogram: about this test [email or web address] Not available 01/30/2023 09:22:47 02/10/2024 [id number] mammogram: about this test [email or web address] Not available 02/10/2024 17:56:44 Reason for Referral None Reported. Results Created Date Observation Date Name Description Value Unit Range Abnormal Flag Note LastModifiedBy Organization Detail LastModifiedTime 09/18/1909/19/2021 HPV HIGH RISK HPV high risk Negati ve negati ve normal The HPV High Risk assay is inten ded for use as co-te sting with cytol ogy and not as a subst itute for regul ar cervi dominga cytol ogy scree frandy. This assay is not inten ded for use as a scree frandy devic e for women under age 30 with renetta l cervi dominga cytol ogy. Not Available [facility] [address] [place], [address], 09/19/2021 14:59:44 09/19/19 22 09/24/2021 THINP REP TIS PAP clinical information: normal Infor matio n not provi ded Not Available [employer] [facility] [address] [place], [address], 09/24/2021 15:33:40 09/19/19 22 09/24/2021 THINP REP TIS PAP LMP: normal NONE GIVEN Not Available [address], [address], 09/24/2021 15:33:40 09/19/19 22 09/24/2021 THINP REP TIS PAP prev. Pap: normal NONE GIVEN Not Available [address], [address], 09/24/2021 15:33:40 09/19/19 22 09/24/2021 THINP REP TIS PAP prev. BX: normal NONE GIVEN Not Available [address], [address], 09/24/2021 15:33:40 09/19/19 22 09/24/2021 THINP REP TIS PAP source: normal Cervi x Not Available [address], [address], 09/24/2021 15:33:40 09/19/19 22 09/24/2021 THINP REP TIS PAP statement of adequacy: normal Satis facto ry for evalu ation . Endoc ervic al/tr ansfo rmati on zone compo nent prese nt. Age and/o r menst rual statu s not provi ded Not Available [address], [address], 09/24/2021 15:33:40 09/19/19 22 09/24/2021 THINP REP TIS PAP interpretati on/result: normal Negat teo for intra epith elial lesio n or malig lyndon . Not Available [address], [address], 09/24/2021 15:33:40 09/19/19 22 09/24/2021 THINP REP TIS PAP comment: normal This Pap test has been evalu ated with esivn valladares techn ology . Not Available [facility] [address], [place], [address], 09/24/2021 15:33:40 09/19/19 22 09/24/2021 THINP REP TIS PAP cytotechnolo gist: normal JXD, CT( CP) CT Scree frandy Locat ion: [facility] [address] [place] [address] Not Available [facility] [address], [place], [address], 09/24/2021 15:33:40 09/19/19 22 09/24/2021 THINP REP TIS PAP comment EXPLA NATOR Y NOTE: The Pap is a scree frandy test for cervi dominga cance r. It is not a diagn ostic test and is subje ct to false negat teo and false posit teo resul ts. It is most relia ble when a satis facto ry sampl e, regul shellie obtai efrain, is submi tted with relev ant clini dominga findi ngs and histo ry, and when the Pap resul t is evalu ated along with histo klaudia and curre nt clini dominga infor matio n. Not Available [facility] [address], [place], [address], 09/24/2021 15:33:40 01/30/20 23 01/30/2023 FSH AND LH FSH 55.4 mIU/m L Refer ence Range s are for femal es aged 18 years - Adult Renetta l Menst ruati ng Femal e: Folli cular phase : 2.5-1 0.2 mIU/m L Mid-C ycle Peak: 3.4-3 3.4 mIU/m L Lutea l phase : 1.5-9 .1 mIU/m L Pregn ant: <0.3 mIU/m L Post- menop ausal : 23.0- 116.6 mIU/m L Not Available [facility] [address] [place], [address], 01/30/2023 12:30:26 01/30/20 23 01/30/2023 FSH AND LH LH 24.20 U/L Refer ence Range s are for femal es aged 18 years - Adult Renetta l Menst ruati ng Femal e: Folli cular phase : 1.9-1 2.5 mIU/m L Mid-C ycle Peak: 8.7-7 6.3 mIU/m L Lutea l phase : 0.5-1 6.9 mIU/m L Pregn ant: <0.1- 1.5 mIU/m L Post- menop ausal : 15.9- 54.0 mIU/m L Contr acept barbara: 0.7-5 .6 mIU/m L Not Available [address], [address], 01/30/2023 12:30:26 01/30/20 23 01/30/2023 HPV HIGH RISK HPV high risk Negati ve negati ve normal The HPV High Risk assay is inten ded for use as co-te sting with cytol ogy and not as a subst itute for regul ar cervi dominga cytol ogy scree frandy. This assay is not inten ded for use as a scree frandy devic e for women under age 30 with renetta l cervi dominga cytol ogy. Not Available [address], [address], 01/31/2023 09:59:39 01/30/20 23 02/02/2023 THINP REP TIS PAP clinical information: normal None given Not Available [employer] [facility] [address] [place], [address], 02/02/2023 11:21:20 01/30/20 23 02/02/2023 THINP REP TIS PAP LMP: normal NONE GIVEN Not Available [employer] [facility] [address] [place], [address], 02/02/2023 11:21:20 01/30/20 23 02/02/2023 THINP REP TIS PAP prev. Pap: normal NONE GIVEN Not Available [address] [place], [address], 02/02/2023 11:21:20 01/30/20 23 02/02/2023 THINP REP TIS PAP prev. BX: normal NONE GIVEN Not Available [address] [place], [address], 02/02/2023 11:21:20 01/30/20 23 02/02/2023 THINP REP TIS PAP source: normal Cervi x Not Available [address], [address], 02/02/2023 11:21:20 01/30/20 23 02/02/2023 THINP REP TIS PAP statement of adequacy: normal Satis facto ry for evalu ation . Endoc ervic al/tr ansfo rmati on zone compo nent absen t. Age and/o r menst rual statu s not provi ded Not Available [address] [place], [address], 02/02/2023 11:21:20 01/30/20 23 02/02/2023 THINP REP TIS PAP interpretati on/result: normal Cytol ogy Resul ts: Negat teo for intra epith elial lesio n or malig lyndon . Not Available [address] [place], [address], 02/02/2023 11:21:20 01/30/20 23 02/02/2023 THINP REP TIS PAP comment: normal This Pap test has been evalu ated with compu ter jaron ashlee techn ology . Not Available [address] [place], [address], 02/02/2023 11:21:20 01/30/20 23 02/02/2023 THINP REP TIS PAP cytotechnolo gist: normal LM, CT( CP) CT scree frandy locat ion: [facility] [address] [place] [address] Not Available [employer] [place] [address] [place], [address], 02/02/2023 11:21:20 01/30/20 23 02/02/2023 THINP REP TIS PAP comment EXPLA NATOR Y NOTE: The Pap is a scree frandy test for cervi dominga cance r. It is not a diagn ostic test and is subje ct to false negat teo and false posit teo resul ts. It is most relia ble when a satis facto ry sampl e, regul shellie obtai efrain, is submi tted with relev ant clini dominga findi ngs and histo ry, and when the Pap resul t is evalu ated along with histo klaudia and curre nt clini dominga infor matio n. Not Available [employer] [facility] [address], [place], [address], 02/02/2023 11:21:20 03/11/19 23 12/26/2021 MRI, breas t, bilat eral, w/wo contr ast No observ ation record ed. [facility] Central Scheduling [address] [place], [address], 03/24/2022 17:05:50 06/26/19 23 06/25/2022 US, breas t, bilat eral, limit ed No observ ation record ed. [facility] [address] [facility], [place], [address], 07/15/2022 11:12:33 06/26/19 23 06/25/2022 MAMMO , scree frandy, bilat eral No observ ation record ed. [facility] [address], [place], [address], 07/15/2022 11:12:56 Result Notes None recorded. Problems Name Problem SNOMED Code Status Onset Date Resolution Date Notes Provider Name and Address Organization Details Recorded Time Breast neoplasm screenin g status 876752270 Active 2020 Encounte r for other screenin g for malignan t neoplasm of breast; Progress : Stable Added By: Florecita Dove i Add to Current Problems : YES ProblemS tatus: Current Not Available [facility] 2 08:42:57 Screenin g for malignan t neoplasm of colon Active 2017 Screenin g for cancer of colon; Location : None Progress : Stable Added By: Jana Reyes Add to Current Problems : YES ProblemS tatus: Current Not Available [facility] 2 08:42:57 Lump in upper inner quadrant of left breast 92584783421 4100 Active 2020 Unspecif ied lump in the left breast, upper inner quadrant ; Progress : Stable Added By: Aaliyah Martinez Add to Current Problems : YES ProblemS tatus: Current Not Available [facility] 2 11:12:27 Cyst of ovary Completed 201810/11/2020 Unspecif ied ovarian cyst, unspecif ied side; Progress : Stable Added By: Ayde Hunt Add to Current Problems : NO ProblemS tatus: Resolve Not Available [facility] 2 08:42:57 Screenin g procedur e Completed 201710/11/2020 Encounte r for screenin g for malignan t neoplasm of colon; Progress : Stable Added By: Jana Reyes Add to Current Problems : NO ProblemS tatus: Resolve Not Available [facility] 2 11:12:27 Family history of breast cancer 181435370 Completed 201810/11/2020 Family history of malignan t neoplasm of breast; Progress : Stable Added By: Ayde Hunt Add to Current Problems : NO ProblemS tatus: Resolve Not Available [facility] 2 08:42:57 Radiolog ic finding 432246252 Completed 202010/11/2020 Other abnormal and inconclu sive findings on diagnost ic imaging of breast; Progress : Stable Added By: Isabel Najera Add to Current Problems : NO ProblemS tatus: Resolve Not Available [facility] 2 11:12:27 Lump in upper outer quadrant of left breast [id number] 4103 Completed 202010/11/2020 Unspecif ied lump in the left breast, upper outer quadrant ; Progress : Stable Added By: Racquel Mejía Add to Current Problems : NO ProblemS tatus: Resolve Not Available [facility] 2 08:42:58 Sampling of vagina for Papanico laou smear Completed 201810/11/2020 Encounte r for gynecolo gical examinat ion (general ) (routine ) without abnormal findings ; Progress : Stable Added By: Silvia Saldivar Add to Current Problems : NO ProblemS tatus: Resolve Not Available [facility] 2 08:42:57 Notes:Screening for cancer o f colon (V76.51) ; OnsetDate: 04/16/2017; ResolvedDate: 10/11/2020; Severity: Moderate Progress: Stable Added By: Jana Macias Add to Current Problems: NO ProblemStatus: Resolve Screening for cancer of colon (V76.51) ; OnsetDate: 04/16/2017; ResolvedDate: 10/11/2020; Progress: Stable Added By: Jana Macias Add to Current Problems: NO ProblemStatus: Resolve Problem Notes None recorded. Procedures Surgical History Date Name Laterality Status Provider Name and Address Organization Details Recorded Time 06/26/19 23 Most Recent Mammogram completed Vee S[facility] 01/29/2023 10:24:02 09/18/19 22 Date of Last Pap Smear completed Vee Hickser [facility] 01/29/2023 10:23:44 Appendectomy completed [facility]ell [facility] 09/15/2021 00:00:23 tonsillectomy completed Isabell [employer] [facility] 09/15/2021 00:00:29 operative procedure on knee completed Isabell [employer] [facility] 09/15/2021 00:00:41 repair of tendon completed Isabell [employer] [facility] 09/15/2021 00:00:55 Imaging Results Imaging Date Name Status LastModified by Organiz ation Details LastModified Time 12/26/2021 MRI, breast, bilateral, w/wo contrast completed [facility] Central Scheduling [address] [facility], [place], [address], 03/24/2022 17:05:50 06/25/2022 US, breast, bilateral, limited completed [facility] [address] [facility], [place], [address], 07/15/2022 11:12:33 06/25/2022 MAMMO, screening, bilateral completed [facility] [address] , [place], [address], 07/15/2022 11:12:56 Procedure Notes None recorded. Medical Equipment None Reported. Allergies Allergen ID Allergen Name Allergen Category Reaction Reaction Severity Criticality Documentation Date Start Date Code Code System Note Provider Name and Address Organization Details Recorded Time 000899 Substance with sulfonami de structure and antibacte rial mechanism of action (substanc e) medicatio n Not available Not available Not available 12/15/20202017 98783 8003 SNOMED Sever ity: Moder ate; Not Available Not Available Not Available 081017 Product containin g macrolide and antibioti c (product) medicatio n Not available Not available Not available 12/15/20202017 83340 8007 SNOMED Sever ity: Moder ate; Not Available Not Available Not Available 617797 azithromy delmer medicatio n Not available Not available Not available 05/09/20212020 99510 RxNorm React ion: hives ;Otilia rity: Moder ate; Not Available Not Available Not Available 851368 lidocaine medicatio n Not available Not available Not available 05/09/20212020 6387 RxNorm Sever ity: Moder ate; Not Available Not Available Not Available 070569 naproxen medicatio n Not available Not available Not available 05/01/2022 7258 RxNorm Not Available Not Available Not Available 263024 erythromy delmer medicatio n Not available Not available Not available 02/10/2024 4053 RxNorm Not Available Not Available Not Available Medications Name Sig Start Date Stop Date Status Note LastModified by Organization Details LastModified Time prednison e 10 mg tablet 02/09 completed Not Available Not Available Not Available doxycycli ne hyclate 100 mg capsule 02/09 completed Not Available Not Available Not Available ketoconaz ole 2 % shampoo USE WASH DAILY DIRECTED 01/29 completed Not Available Not Available Not Available hydrocodo ne 5 mg-acetam inophen 325 mg tablet 02/09 completed Not Available Not Available Not Available meloxicam 15 mg tablet 02/09 completed Not Available Not Available Not Available amoxicill in 500 mg tablet 02/09 completed Not Available Not Available Not Available pantopraz ole 20 mg tablet,de layed release Take 2 tablets every day by oral route. active Not Available Not Available No t Available oxycodone -acetamin ophen 5 mg-325 mg tablet TAKE 1 TO 2 TABLETS BY MOUTH EVERY 6 HOURS NEEDED FOR PAIN 02/09 completed Not Available Not Available Not Available tamsulosi n 0.4 mg capsule 02/09 completed Not Available Not Available Not Available cephalexi n 500 mg capsule 02/09 completed Not Available Not Available Not Available triamcino lone acetonide 0.1 % topical ointment APPLY TOPICALL Y TO RASH TWICE DAILY NEEDED 01/29 completed Not Available Not Available Not Available diazepam 10 mg tablet 02/09 completed Not Available Not Available Not Available epinephri ne 0.3 mg/0.3 mL injection , auto-inje ctor 01/29 completed Not Available Not Available Not Available amoxicill in 875 mg-potass ium clavulana te 125 mg tablet 01/29 completed Not Available Not Available Not Available chlorhexi dine gluconate 0.12 % mouthwash USE NIGHTLY AFTER BRUSHING AND FLOSSING active Not Available Not Available No t Available Co Q-10 01/29 completed Not Available Not Available Not Available Multivita mins 01/29 completed Multivit amins Allow Substitu tion: True Refill Denied: No Refill DateOccu rred: 03/19/19 18 Not Available Not Available Not Available Opzelura 1.5 % topical cream 02/09 completed Not Available Not Available Not Available Vitals Date Recorded Body height Body temperature Systolic blood pressure Diastolic blood pressure Provider Name and Address Organization Details Last Updated DateTime 09/17/2021 172.72 cm 97.8 [degF] 116 mm[Hg] 62 mm[Hg] Suki Markhams [facility] 2 17:22:37 Date Recorded Body height Body mass index (BMI) Body weight Systolic blood pressure Diastolic blood pressure Provider Name and Address Organization Details Last Updated DateTime 05/01/2022 172.72 cm 31 kg/m2 24071.8 4 g 130 mm[Hg] 80 mm[Hg] Gaby Recio [place] [employer] [facility] 3 10:11:43 Date Recorded Body height Body mass index (BMI) Body weight Body temperature Systolic blood pressure Diastolic blood pressure Provider Name and Address Organization Details Last Updated DateTime 3 172.72 cm 32.7 kg/m2 96768.0 8 g 97.4 [degF] 118 mm[Hg] 76 mm[Hg] Vee Sanya [place] [employer] [facility] 3 10:21:00 Date Recorded Body height Body mass index (BMI) Body weight Body temperature Systolic blood pressure Diastolic blood pressure Provider Name and Address Organization Details Last Updated DateTime 4 172.72 cm 33.1 kg/m2 07332.4 2 g 97.4 [degF] 114 mm[Hg] 80 mm[Hg] Jacey Kim [place] [employer] [facility] 4 16:51:35 Social History Question Answer Notes LastModified by Organizat ion Details LastModified Time Tobacco Smoking Status Never Smoker Gaby hussein [facility] 05/01/2022 10:09:09 What Is Your Level Of Alcohol Consumption? None Information not available 05/01/2022 Are You Blind Or Do You Have Difficulty Seeing? No Information not available 05/01/2022 Are You Deaf Or Do You Have Serious Difficulty Hearing? No Information not available 05/01/2022 What Type Of Diet Are You Following? GLUTENFREE No Carbs Information not available 05/01/2022 How Many Children Do You Have? -2 Information not available 05/01/2022 What Is Your Relationship Status? Information not available 05/01/2022 Are You Sexually Active? Yes [email or web address] Information not available 09/17/2021 Do You Use Any Illicit Or Recreational Drugs? No Information not available 05/01/2022 Do You Or Have You Ever Used Any Other Forms Of Tobacco Or Nicotine? No Information not available 05/01/2022 Sex: Unknown Functional Status Question Answer Note LastModified by Organization D etails LastModified Time What is your exercise level? Moderate Information not available 05/01/2022 Mental Status None recorded. Family History Relationship Description Onset Age of this Age Resolved Age Notes LastModified by Organization Details LastModified Time Maternal Aunt Malignant tumor of breast 70 Matern al Aunt 50, Matern al cousin - 28 [email or web address] Not available 09/20/2021 10:43:22 Maternal Aunt Malignant tumor of cervix [email or web address] Not available 2021 17:19:32 Maternal Aunt Malignant neoplasm of urinary bladder [email or web address] Not available 2021 17:19:32 Maternal Aunt Malignant tumor of colon [email or web address] Not available 09/20 10:44:47 Paternal Grandfather Leukemia [email or web address] Not available 09/17 17:19:32 Paternal Grandfather Type 2 diabetes mellitus [email or web address] Not available 2021 17:19:32 Maternal Uncle Malignant tumor of prostate [email or web address] Not available 2021 17:19:32 Maternal Grandmother Malignant neoplasm of urinary bladder [email or web address] Not available 2021 17:19:32 Mother Basal cell carcinoma of skin [email or web address] Not available 09/20 10:44:07 Medical History Condition Response Other Cancer N High Blood Pressure N Colon Cancer N Cytomegalovirus N Hyperthyroidism N Herpes (HSV) N Breast Cancer N Blood Transfusion N MRSA N Lung Cancer N Hypothyroidism N Depression N Incontinence N Panic Attacks N Neurological Disorder N Deep Vein Thrombosis N Anxiety Disorder Y Autoimmune disease N Arthritis N Tuberculosis/Positive PPD N Shingles N Polycystic Ovarian Syndrome N Infertility N Cervical Cancer N Chlamydia N Hematuria N Stroke N Varicosities N Crohn's Disease N Seasonal allergies N Alzheimer's/Dementia N COPD/Emphysema N HPV/Genital Warts N Endometriosis N IBS (Irritable Bowel Syndrome) N History of Abnormal Pap N High Cholesterol N Liver Disease N Kidney Infection N Fibromyalgia N Ulcer N Kidney Disease N HIV N Gallbladder disease N Sickle Cell Disease/Trait N Von Willebrand disease N ADD/ADHD N Eating Disorder N Anemia N Diabetes Mellitus (non-insulin dependent ) N Ovarian Problems N Multiple Sclerosis N Gonorrhea N Frequent Urinary Tract infections N Osteopenia N Headaches/migraines N GERD (reflux) Y Ovarian Cancer N Diabetes (insulin dependent) N Seizures/Epilepsy N Breast Problems N Fibroids N Heart Attack N Asthma N Lupus N Endometrial Cancer N Rubella N Blood Clotting Disorder N Bipolar Disorder N Diabetes Mellitus (during ) N Ulcerative Colitis N Hepatitis N Heart Disease N Pulmonary Embolism N RPR N Chicken Pox N Osteoporosis N Gynecological History Statement/Question Response Date of Last Colonoscopy Date of last HPV 09/17/2021 Date of LMP 02/04/2022 Most Recent Bone Density Date of Last Pap Smear 09/17/2021 Most Recent Mammogram 06/25/2022 Current Control Method Partner Vas ectomy Age at Menarche 10 Obstetrics History GPAL:G 0 P 0 0 0 0 Type Value Living 0 Total 0 Past Encounters Encounter ID Performer Location Encounter Start Date Encounter Closed Date Diagnosis/Indication Diagnosis SNOMED-CT Code Diagnosis ICD10 Code Diagnosis Note [id number] Florecita Ovalle CNM [facility] [address] [place] [address] 09/17/2021 16:59:55 09/18/2021 12:31:39 Screening for malignant neoplasm of cervix 299121135 Z12.4 Screening for malignant neoplasm of breast 383885918 Z12.39 Family his tory of breast cancer 486907938 Z80.3 Menopausal symptom 74645 002 N95.1 [id number] CHRISTINE Boogie [facility] [address] [place] [address] 05/01/2022 09:57:20 05/01/2022 11:06:53 Pain of left breast 1350829282 N64.4 Pt educated on breast cancer screening guidelines and discussed normal CBE in office. Pt encouraged to decrease caffeine, chocolate, and nut intake in diet, and push p.o. water intake. Pt may use OTC NSAID therapy. Pt given order for Dx mamm with U/S if indicated of L breast. Further POC pending imaging result review. Pt states understand ing of POC. [id number] Florecita Ovalle CNM [facility] [address] [place] [address] 01/29/2023 10:11:59 01/30/2023 12:29:47 Gynecologic examination 48109579 Z01.419 Screening for malignant neoplasm of breast 085693017 Z12.31 Depression screening 171 821658 Z13.31 refer to intake screening Amenorrhea 14816018 N91. 2 Screening for malignant neoplasm of cervix 162112396 Z12.4 At [facility] risk of malignant neoplasm of breast 804108308 Z91.89 Plan MRI now and Mammogram in summer. Followup for CBE in office in 6 months. Genetic predisposition 36180177 Z15.01 [id number] MICHELLE STEWART NP [facility] [address] [place] [address] 02/10/2024 16:33:54 02/12/2024 12:49:32 Depression screening 164761505 Z13.31 refer to intake screening Pain of left breast 1010 627510 N64.4 Patient reporting pain left breast into the axilla. Patient denies any injury or wearing bras with under wire or too tight. No nodules or masses palpated during exam.due to patient increased risk of cancers due to family history pt was getting screening q 6 months however patient reports no imaging since 2021.BRCA negative, TC Lifetime risk 20.4%. diagnostic mammo placed due to pain. Health Concerns Section Related Observation LastModified by Organization Detai ls LastModified Time None Recorded Concern Status LastModified by Organization Details LastModified Time None Recorded Advance Directives Directive None Recorded Payers Encounter Date Sequence Insurance Name Policy Number Policy Gandhi Covered Member ID Gandhi Member ID Guarantor Name 09/17/2021 1 [place] 104 Monica Dominguez [id number] Monica Dominguez 05/01/2022 1 [place] 104 Monica Gonzalezer [id number] Monica Li Angelica 01/29/2023 1 [place] 104 Monica Duckworthller [id number] Monica Li Angelica 02/10/2024 1 [place] 104 Monica Duckworthller [id number] Monica Li Angelica Notes Date Note Type Note Provider Name and Address Organization Details Recorded Time 09/17/2021 text/html Annual GYNReport ed bypatient.Menstrua l cycle:Normal menses Urinary symptoms:No hematuria; No incontinence Vulva:No genital lesion Vagina:Normal vaginal discharge Breast:No breast pain; No breast lump; No nipple discharge Sexual complaints:No sexual complaints; No pain during intercourse; Normal libido Menopausal Symptoms:No menopausal symptoms; Normal vaginal lubrication Psychological symptoms:No depression; No anxiety; No PMDDNotes:Complain s of menopausal symptoms Has not had cycle since 05/15 Patient is being seen today for an Annual Pap Florecita Ovalle CNM [address] [place], [address], [facility] 09/20/2021 10:55:17 05/01/2022 text/html Patient is here for a breast exam which has been advised she have every 6 months. Pt is a high risk negative patient; BRCA negative, TC Lifetime risk 20.4%.. Pt states in the past week she has noticed left sided breast pain and lump presence. Pt's last breast imaging was in 12/2021 with bilateral breast MRI. Birads 2. Pt states she has had issues in the past year with inflammatory response throughout body and is in the middle of allergy testing. Pt reports having enlarged lymph node on L side of neck for several years. Pt has no other concerns. CHRISTINE Boogie [address] [facility], [place], [address], [facility] 05/01/2022 10:46:00 01/29/2023 text/html Annual GYNReport ed bypatient.History: no gynecologic complaints Menstrual cycle:amenorrhea Urinary symptoms:No hematuria; No incontinence Vulva:No genital lesion Vagina:Normal vaginal discharge Breast:No breast pain; No breast lump; No nipple discharge Current Contraception:Heriberto h control not practiced Sexual complaints:No sexual complaints; No pain during intercourse; Normal libido Menopausal Symptoms:No menopausal symptoms; Normal vaginal lubrication Psychological symptoms:No depression; No anxiety; No PMDD Preventive measures:Encourage self breast examination; Encourage regular exercise; Encourage regular mammograms starting age 40 Florecita Ovalle CNM [address] [place], [address], [facility] 01/30/2023 09:53:26 02/10/2024 text/html Patient is here for a breast exam which has been advised she have every 6 months. Pt is a high risk negative patient; BRCA negative, TC Lifetime risk 20.4%.. Pt states in the past week she has noticed left sided breast pain and lump presence. Pt's last breast imaging was in 12/2021 with bilateral breast MRI. Birads 2. Pt states she has had issues in the past year with inflammatory response throughout body and is in the middle of allergy testing. Pt reports having enlarged lymph node on L side of neck for several years. Pt has no other concerns. MICHELLE STEWART NP [address] [place], [address], [facility] 02/11/2024 13:42:33 OBGyn Episode No OBEpisode recorded.
== END 2024-04-19 11:34 | disposition home or self-care (01) ==
PROVIDERS: Emergency Provider Nurse Practitioner; PCP Family Medicine
DX: J06.9 Acute upper respiratory infection, unspecified (principal); Z20.822 Contact with and (suspected) exposure to COVID-19; Z86.718 Personal history of other venous thrombosis and embolism; Z86.73 Personal history of transient ischemic attack (TIA), and cerebral infarction without residual deficits
CPT/HCPCS: 87426; 87804; 99213; G0463

== ENCOUNTER 2024-08-28 08:47 | Emergency (ER) | payer BC, SELFPAY ==
--- OUTSIDE RECORDS SUMMARY | 2024-08-28 08:50 | XMS_ITS | Encounter Summary ---
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
--- OUTSIDE RECORDS SUMMARY | 2024-08-28 08:50 | XMS_ITS | Encounter Summary ---
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
--- OUTSIDE RECORDS SUMMARY | 2024-08-28 08:50 | XMS_ITS | Encounter Summary ---
Author Organization [facility] Address [address] [place] [address] Care Team Providers Care Nuclear Licensing Engineer Name Role Phone Pedro Bermeo MD Unavailable [phone] Katherine Munguia DO Primary Care Provider [phone] Encounter Details Date Type Department Care Team (Late st Contact Info) Description 06/10/2021 StackMobt Message Enc [facility] Medical [facility] Family Medicine - [place] [address] [facility], [address] [place] [phone] Katherine Munguia DO [address] [place] [address] Moms disability placard Social History [...] Industry Job Start Date Job End Date [employer] Not on file Not on file Not [...] 6:04 AM CDTFrom: Jeff Zambranobenja To: Dr. Katherine Munguia Sent: 06/10/2021 9:58 AM CDT Subject: Moms disability placard Katherine, We just realized that mom disability placard expires at the end of the month. Can your office please renew. I saw that physicians cam renew online via the [email or web address] website. Thank you!! Jeff documented in this encounter Plan of Treatment Not on file documented as of this encounter Visit Diagnoses Not on filedocumented in this encounter Additional Health Concerns Infection Onset Date Last Indicated Resolved Time COVID-19 Rule Out 03/28/2022 03/28/2022 03/28/2022 8:40 PM OB/GYN COVID-19 Rule Out 06/05/2023 06/05/2023 06/05/2023 9:27 AM CDT Assessment Noted Time PHQ-9 Depression Total Score: 0 10/07/19 21 8:18 AM CDT documented as of this encounter Care Teams Nuclear Licensing Engineer Relationship Specialty Start Date End Date Katherine Munguia DO [address] [place] [address] PCP - General FAMILY PRACTICE 08/31/19 Pedro Bermeo MD [place] Designated Broker CARDIOVASCULAR DISEASE 05/08/17 documented as of this encounter
--- OUTSIDE RECORDS SUMMARY | 2024-08-28 08:50 | XMS_ITS | Encounter Summary ---
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
--- OUTSIDE RECORDS SUMMARY | 2024-08-28 08:50 | XMS_ITS | Clinical Summary ---
Author Organization [facility] Address [address] [place] [address] Care Team Providers Care Science Analyst Name Role Phone Pedro Bermeo MD Unavailable [phone] Katherine Munguia DO Primary Care Provider Allergies Active Allergy Reactions Criticality Noted Date [...] tablet 3 4 Active Additional Information Patient not taking.Reported on 07/27/2024 amoxicillin-cla vulanate (AUGMENTIN) 875-125 MG tablet Take 1 tablet (875 mg total) by mouth 2 (two) times daily for 10 days. 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 Not on file Last Filed Vital Signs Vital Sign Reading Time Taken Comments Blood Pressure 139/74 07/27/2024 3:01 PM CDT Pulse 80 07/27/2024 3:01 PM CDT Temperature 36.7 C (98 F) 07/27/2024 3:01 PM CDT Respiratory Rate 18 07/27/2024 3:01 PM CDT Oxygen Saturation 99% 07/27/2024 3:01 PM CDT Inhaled Oxygen Concentration - - Weight 97.5 kg (215 lb) 07/27/2024 3:01 PM CDT Height 172.7 cm (5' 8) 07/27/2024 3:01 PM CDT Body Mass Index 32.69 07/27/2024 3:01 PM CDT Plan of Treatment Health Maintenance Due Date Last Done Comments Cervical Cancer Screening Pap Smear (Age 30 to 64) Every 3 Years 1973 Annual Physical 1976 Hepatitis C 05/03/1991 Hepatitis B Vaccines (1 of 3 - 19+ 3-dose series) 1992 Pneumococcal Vaccine: 50+ Years (1 of 1 - PCV) 05/03/2023 Zoster Vaccines (1 of 2) 05/03/2023 COVID-19 Vaccine ( - 2023- season) 2023 06/21/2020, 05/11/2020 Colorectal Cancer Screening Colonoscopy (10 Years) 01/15/2024 01/14/2019 DTaP, Tdap and Td Vaccines (2 - Td or Tdap) 02/25/2024 02/24/2014, 05/20/2008, 05/09/1998 PHQ-2 (Physician [place]) 02/25/2024 12/09/2023 Mammogram Screening 06/10/2026 06/10/2024, 06/10/2024, 06/13/2023, Additional history exists Cervical Cancer Screening Pap [...] Procedure Name Priority Date/Time Associated Diagnosis Comments XR CHEST PA+LAT STAT 07/27/2024 3:39 PM CDT MAMMOGRAM GENERIC (SCAN ORDER) 06/10/2024 OUTSIDE CYTOPATH CERV/VAG INTERPRET (PAP) 09/18/2021 COLONOSCOPY GENERIC (SCAN ORDER) Routine 01/14/2019 from Last 3 Months or Most Recently Relevant to Health Maintenance Results * XR CHEST PA+LAT (07/27/2024 3:39 PM CDT) Anatomical Region Laterality Modality Chest Radiographic More[place] ging 07/27/2024 3:40 PM CDT Impressions 07/27/2024 3:41 PM CDT IMPRESSION: No acute findings Ordered By: ARA MACIAS Interpreted By: Bam Licea MD, 07/27/2024 3:40 PM Narrative 07/27/2024 3:41 PM CDT [address] [address] 2 VIEWS OF THE CHEST Clinical history: Right supraclavicular swelling Comparison: December 09, 2023 2 views of the chest demonstrate the cardiac silhouette to be normal in size and appearance. The pulmonary vasculature appears normal. The Lungs are clear. No consolidations or effusions are seen. Procedure Note Bam Licea MD - 07/27/[address] [address] 2 VIEWS OF THE CHEST Clinical history: Right supraclavicular swelling Comparison: December 09, 2023 2 views of the chest demonstrate the cardiac silhouette to be normal insize and appearance. The pulmonary vasculature appears normal. The Lungsare clear. No consolidations or effusions are seen. IMPRESSION: No acute findings Ordered By: ARA MACIAS Interpreted By: Bam Licea MD, 07/27/2024 3:40 PM Ara Macias DO GENERAL IMAGING Final Result * MAMMOGRAM GENERIC (SCAN ORDER) (06/10/2024) Anatomical Region Laterality Modality Other 06/10/2024 [facility] Scanned SCANNING Final Resu lt * PAP SMEAR WITH HPV (09/18/2021) 09/18/2021 [facility] Scanned SCANNING Final Resu lt * COLONOSCOPY (01/14/2019) [facility] Scanned SCANNING Final Resu lt [facility] from Last 3 Months or Most Recently Relevant to Health Maintenance Insurance [employer] Care Teams Science Analyst Relationship Specialty Start Date End Date Katherine Munguia DO [address] [place] [address] PCP - General FAMILY PRACTICE 08/31/19 Pedro Bermeo MD [place] Fire Sprinkler Fitter CARDIOVASCULAR DISEASE 05/08/17
--- OUTSIDE RECORDS SUMMARY | 2024-08-28 08:50 | XMS_ITS | Encounter Summary ---
Author Organization [facility] Address [address] [place] [address] Care Team Providers Care Accounting Manager Controller Name Role Phone Pedro Bermeo MD Unavailable [phone] Katherine Munguia DO Primary Care Provider [phone] Encounter Details Date Type Department Care Team (Late st Contact Info) Description 06/20/2021 NewRivert Message Enc [facility] Medical Group Family Medicine - [place] [address] [facility], [address] [place] [phone] Katherine Munguia DO [address] [place] [address] Travel to [facility] Social History Tobacco Use Types Packs/Day Years [...] 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
--- OUTSIDE RECORDS SUMMARY | 2024-08-28 08:50 | XMS_ITS | Encounter Summary ---
Author Organization [facility] Address [address] [place] [address] Care Team Providers Care Stock Taker Name Role Phone Pedro Bermeo MD Unavailable [phone] Katherine Munguia DO Primary Care Provider [phone] Encounter Details Date Type Department Care Team (Late st Contact Info) Description 11/25/2023 Correlec Message Enc [facility] Medical Group Family Medicine - [place] [address] [facility], [address] [place] [phone] Katherine Munguia DO [address] [place] [address] Doxycycline Social History Tobacco Use [...] 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
--- OUTSIDE RECORDS SUMMARY | 2024-08-28 08:50 | XMS_ITS | Patient Health Record ---
Author Organization [facility] [employer] [place] ([address]) Address [address] [place] [address] Care Team Providers Care Devops Architect Name Role Phone Katherine Munguia DO Primary Care Provider Corey White Unavailable [phone] Allergies Allergen (clinical drug ingredient) Drug/Non Drug [...] Status Risk Notes Problem Chronic allergic conjunctivitis (52140100) Other chronic allergic conjunctivitis (H10.45) Active confirmed Problem Allergic rhinitis caused by pollen (disorder) (77356385) Allergic rhinitis due to pollen (J30.1) Active confirmed Problem Allergic rhinitis (68050041) Other allergic rhinitis (J30.89) Active confirmed Problem Chronic rhinitis (02501322) Chronic rhinitis (J31.0) Active confirmed Problem Uncomplicated mild persistent asthma (014189463) Mild persistent asthma, uncomplicated (J45.30) Active confirmed Problem Uncomplicated moderate persistent asthma (457794852) Moderate persistent asthma, uncomplicated (J45.40) Active confirmed Problem Uncomplicated severe persistent asthma (700231348) Severe persistent asthma, uncomplicated (J45.50) Active confirmed Problem Allergic rhinitis caused by animal hair and dander (558102900292347) Allergic rhinitis due to animal (cat) (dog) hair and dander (J30.81) Active confirmed Plan Of Treatment No Information Insurance Providers Payer Name Payer Address Payer Phone Subscriber Number Group Number Insured Name Patient Relationship to Insured Coverage Start Date Coverage End Date [facility] [address] [place] [address] [id number] Monica Li Self - patient is the insured Medical (General) History Surgical History Surgery Date(Month/Year) Tonsillectomy 07/26/1979 Right Wrist Tendon 09/07/2002 Apendectomy 06/05/2004 Left ACL 01/14/2008 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
--- OUTSIDE RECORDS SUMMARY | 2024-08-28 08:50 | XMS_ITS | Encounter Summary ---
Author Organization [facility] Address [address] [place] [address] Care Team Providers Care Notched Blade Loader Name Role Phone Pedro Bermeo MD Unavailable [phone] Katherine Munguia DO Primary Care Provider [phone] Encounter Details Date Type Department Care Team (Late st Contact Info) Description 02/10/2024 Swiftype Message Enc 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
--- OUTSIDE RECORDS SUMMARY | 2024-08-28 08:50 | XMS_ITS | Encounter Summary ---
Author Organization [facility] Address [address] [place] [address] Care Team Providers Care Infectious Disease Technician Name Role Phone Pedro Bermeo MD Unavailable [phone] Katherine Munguia DO Primary Care Provider [phone] Encounter Details Date Type Department Care Team (Late st Contact Info) Description 03/27/2023 [facility] Message Enc [facility] Medical Group Family Medicine - [place] [address] [facility], [address] [place] [phone] Katherine Munguia DO [address] [place] [address] ACL surgery Social History Tobacco [...] Industry Job Start Date Job End Date [employer] Not on file Not on file Not [...] documented as of this encounter Care Teams Infectious Disease Technician Relationship Specialty Start Date End Date Katherine Munguia DO [address] [place] [address] PCP - General FAMILY PRACTICE 08/31/19 Pedro Bermeo MD [place] Crew Foreman CARDIOVASCULAR DISEASE 05/08/17 documented as of this encounter
--- OUTSIDE RECORDS SUMMARY | 2024-08-28 08:50 | XMS_ITS | Patient Health Record ---
Author Organization [facility] Address [address] [address] Care Team Providers Care Supply Chain Consultant Name Role Phone J LUIS WALKER Unavailable [phone] Reason For Referral No Information Plan Of Treatment No Information
--- OUTSIDE RECORDS SUMMARY | 2024-08-28 08:50 | XMS_ITS | Patient Health Record ---
Author Organization 1 OF Charmaine davila [facility] Address [address] [facility] [address] [place] [address] Care Team Providers Care Web Marketing Manager Name Role Phone Dr Katherine Munguia Primary Care Provider Janis Pichardo Unavailable [phone] Allergies Allergen (clinical drug ingredient) Drug/Non Drug Allergy documented on EMR Reaction Allergy Type Onset Date Status Aleve Unknown Drug Allergy Active erythromycin Erythromycin Unknown Drug Allergy A ctive lidocaine Lidocaine Unknown Drug Allergy Active Reason For Referral No Information Medications Medication SIG (Take, Route, Frequency, Duration) Notes Start Date End Date Status Hlksycsm-Pzohdsxor-Spktn eth 0.1 % 1-2 drops to affected toe(s) until healed topical QD; Duration: 14 days Not-Taking Gentamicin Sulfate A ctive Social History Tobacco Use: Social History Observation Description Date Details (start date - stop date) Never Smoker NA - NA Tobacco Use/Smoking Question Answer Notes Are you a nonsmoker Are you a nonsmoker Problems Problem Type SNOMED Code ICD Code Onset Dates Problem Status W/U Status Risk Notes Problem Raynaud's disease without gangrene (I73.00) Active confirmed Plan Of Treatment No Information Insurance Providers Payer Name Payer Address Payer Phone Subscriber Number Group Number Insured Name Patient Relationship to Insured Coverage Start Date Coverage End Date [facility] [address] [place] [address] [phone] [id number] Jeff Deng Self - patient is the insured Medical (General) History Surgical History Surgery Date(Month/Year) Left ACL
--- OUTSIDE RECORDS SUMMARY | 2024-08-28 08:50 | XMS_ITS | Encounter Summary ---
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 Question Answer Date of Assessment Author Status Little interest or pleasure in doing things Not at all 11/14/2023 12:41 PM Hiral Harris MA A ctive Feeling down, depressed, or hopeless Not at all 11/14/2023 12:41 PM Anne Harris MA Active Patient Health Questionnaire-2 Score 0 11/14/2023 12:41 PM Hiral Harris MA Active * Question Answer Date of Assessment Author Status Trouble falling or staying asleep, or sleeping too much Not at all 11/14/2023 12:41 PM Hiral Harris MA Active Feeling tired or having little energy Not at all 11/14/2023 12:41 PM Hiral Harris MA Active Poor appetite or overeating Not at all 11/14/2023 12:41 PM Hiral Harris MA Active Feeling bad about yourself - or that you are a failure or have let yourself or your family down Not at all 11/14/2023 12:41 PM Hiral Harris MA Active Trouble concentrating on things, such as reading the newspaper or watching television Not at all 11/14/2023 12:41 PM Hiral Harris MA Active Moving or speaking so slowly that other people could have noticed? Or the opposite - being so fidgety or restless that you have been moving around a lot more than usual. Not at all 11/14/2023 12:41 PM Hiral Harris MA Active Thoughts that you would be better off or hurting yourself in some way Not at all 11/14/2023 12:41 PM Hiral Harris MA Active Patient Health Questionnaire-9 Score 0 11/14/2023 12:41 PM Hiral Harris MA Active * If you checked off any problems on this questionnaire so far, Question Answer Date of Assessment Author Status How difficult have these problems made it for you to do your work, take care of things at home, or get along with other people? Not difficult at all 11/14/2023 12:41 PM Hiral Harris MA Active * Over the last 2 weeks, how often have you been bothered by any of the following problems? Question Answer Date of Assessment Author Status Feeling nervous, anxious, or on edge 0 11/14/2023 12:41 PM CDT Hiral Purcell MA Active Not being able to stop or control worrying 0 11/14/2023 12:41 PM CDHiral Abdi MA Active Worrying too much about different things 0 11/14/2023 12:41 PM CDT Hiral Purcell MA Active Trouble relaxing 0 11/14/2023 12:41 PM CDT Hiral Purcell MA Active Being so restless that it is hard to sit still 0 11/14/2023 12:41 PM CDT Hiral Purcell MA Active Becoming easily annoyed or irritable 0 11/14/2023 12:41 PM Hiral Harris MA A ctive Feeling afraid as if something awful might happen 0 11/14/2023 12:41 PM CDHiral Abdi MA A ctive SUZETTE-7 Total Score 0 11/14/2023 12:41 PM CDHiral Abdi MA Active documented as of this encounter Plan of Treatment Not on file documented as of this encounter Visit Diagnoses Not on filedocumented in this encounter Additional Health Concerns Assessment Noted Time PHQ-9 Depression Total Score: 0 10/21/19 24 1:34 PM CDT documented as of this encounter Care Teams Sap Hana Architect Relationship Specialty Start Date End Date Katherine Munguia DO [address] [place] [address] PCP - General FAMILY PRACTICE 08/31/19 Pedro Bermeo MD [place] Veneer Stock Grader CARDIOVASCULAR DISEASE 05/08/17 documented as of this encounter
--- OUTSIDE RECORDS SUMMARY | 2024-08-28 08:50 | XMS_ITS | Encounter Summary ---
Author Organization [facility] Address [address] [place] [address] Care Team Providers Care Supervisor Cloth Winding Name Role Phone Pedro Bermeo MD Unavailable [phone] Katherine Munguia DO Primary Care Provider [phone] Encounter Details Date Type Department Care Team (Late st Contact Info) Description 10/05/2023 [employer] Message Enc [facility] Medical Group Family Medicine - [place] [address], [address] [place] [phone] Katherine Munguia DO [address] [place], [place] [id number] Can we talk before moms appointment Friday? 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
--- OUTSIDE RECORDS SUMMARY | 2024-08-28 08:50 | XMS_ITS | Encounter Summary ---
Author Organization [facility] Address [address] [place] [address] Care Team Providers Care Pocket Maker Name Role Phone Pedro Bermeo MD Unavailable [phone] Katherine Munguia DO Primary Care Provider [phone] Encounter Details Date Type Department Care Team (Late st Contact Info) Description 02/04/2022 [employer] Message Enc [facility] Medical Group Family Medicine - [place] [address] [facility], [address] [place] [phone] Katherine Munguia DO [address] [place] [address] Mom Social History Tobacco Use [...] 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 No / Unsure 01/14/2022 1:44 PM FLYING SQUAD WORKER documented as of this encounter Plan of Treatment Not on file documented as of this encounter Visit Diagnoses Not on filedocumented in this encounter Additional Health Concerns Infection Onset Date Last Indicated Resolved Time COVID-19 Rule Out 03/28/2022 03/28/2022 03/28/2022 8:40 PM FLYING SQUAD WORKER COVID-19 Rule Out 06/05/2023 06/05/2023 06/05/2023 9:27 AM CDT Assessment Noted Time PHQ-9 Depression Total Score: 0 09/27/19 22 2:18 PM CDT documented as of this encounter Care Teams Pocket Maker Relationship Specialty Start Date End Date Katherine Munguia DO [address] [place] [address] PCP - General FAMILY PRACTICE 08/31/19 Pedro Bermeo MD [place] Animal Ride Manager CARDIOVASCULAR DISEASE 05/08/17 documented as of this encounter
--- OUTSIDE RECORDS SUMMARY | 2024-08-28 08:50 | XMS_ITS | Data Portability ---
Author Organization [employer], [facility], [facility] Address [address] [address] Assessment Encounter Date Assessment Date Assessment LastModified [...] w/ auto diff - [facility], [address], [address], [place], [address], 4 13:48:41 vitamin D, 25-hydrox y, total, serum - [facility] 024 [email or web address] [facility], [address], [address], [place], [address], 4 17:52:33 HbA1c (hemoglob in A1c), blood - [facility] 024 [email or web address] [facility], [address], [address], [place], [address], 4 17:52:33 CRP, high sensitivi ty, serum or plasma - [facility] [email or web address] [facility], [address], [address], [place], [address], 4 17:52:33 testoster one, free + total, serum - [facility] [email or web address] [facility], [address], [address], [place], [address], 4 17:52:33 Referral None recorded. Procedures None recorded. Surgeries None recorded. Imaging XR, ankle [email or web address] Not available 4 17:52:33 Medication Orders [...] Time 06/24/19 24 Radiographs completed Hal Fisher [address] [facility] [address], [place], [address], [facility], [facility] 06/24/2023 21:09:57 06/24/19 24 Ultrasound Examination completed Hal Fisher [address] [facility] [address], [place], [address], [facility], [facility] 06/24/2023 21:08:56 03/27/19 24 reconstruction of anterior cruciate ligament of knee joint completed Ricardo [employer] [facility], [facility] 06/24/2023 14:47:47 09/25/19 22 Wrist arthroscopy/surger y completed Ricardo Ashley [facility], [facility] 06/24/2023 14:48:29 10/26/19 08 reconstruction of anterior cruciate ligament of knee joint completed Ricardo [employer] [facility], [facility] 06/24/2023 14:47:31 04/25/19 02 Wrist arthroscopy/surger y completed Ricardo [facility], [facility] 06/24/2023 14:48:50 Imaging Results None recorded. Procedure Notes None recorded. Medical Equipment None Reported. Allergies Allergen ID Allergen Name Allergen Category Reaction Reaction Severity Criticality Documentation Date Start Date Code Code System Note Provider Name and Address Organization Details Recorded Time 17685 erythromy delmer medicatio n hives Not available Not available 06/24/2023 4053 RxNorm Ricardo Ashley [facility], [facility] 4 14:39:31 47930 Aleve medicatio n hives Not available Not available 06/24/2023 37701 1 RxNorm Ricardo Ashley [facility], [facility] 14:39:57 37578 lidocaine medicatio n Not available Not available Not available 06/24/2023 6387 RxNorm Ricardo Ashley [facility], [facility] 14:40:53 Medications Name Sig Start Date Stop [...] Updated DateTime 06/24/2023 172.72 cm 30.4 kg/m2 48736.47 g Ricardo [facility] [employer] 06/24/2023 14:38:22 Date Recorded Body height Body mass index (BMI) Body weight Heart rate Systolic And Diastolic Provider Name and Address Organization Details Last Updated DateTime 07/16/2023 172.72 cm 30.4 kg/m2 04109.47 g 74 /min 145/85 mm[Hg] Gillian Macias [employer] 14:37:15 Social History Question Answer Notes LastModified by [employer] Details LastModified Time Tobacco Smoking Status Never Smoker Ricardo hussein [employer] 06/24/2023 14:46:45 What Is Your Relationship Status? Information not available 06/24/2023 Sex: Unknown Functional Status Question Answer Note LastModified by Organizat ion Details LastModified Time Do you use any illicit or recreational drugs? No Information not available 06/24/2023 Do you or have you ever used any other forms of tobacco or nicotine? No Information not available 06/24/2023 What is your level of alcohol consumption? Occasional Information not available 06/24/2023 What is your exercise level? Moderate Information [...] Stones N Hyperthyroidism N Breast Cancer N Head Trauma/Injury Y Hernia N Lung Cancer N Blood Clots N COPD N Depression N Lung Disease N Hypothyroidism N Pneumonia N Pacemaker N Parkinson's N Anxiety Disorder N Multiple Sprains Y Arthritis Y Alcohol / Substance Abuse N Kidney Cancer N Cancer N Melanoma N Stroke N Mone Danlos Syndrome (EDS) N Bowel Dysfunction N Leg or Foot Ulcers N Neck Injury N High Cholesterol N Skin Cancer N Liver Disease N Rheumatoid Arthritis N Fibromyalgia N Headaches N Gastric Issues N Concussion N Kidney Disease N Heart Problems N Scoliosis N Chronic use of Pain Medication N Prostate Cancer N Migraines N Thyroid Problems N Alzheimers N DVT N Autoimmune Disorder N Anemia N Multiple Sclerosis N Tendon Tear Y Ulcers N Heart Attack (LA) N Osteopenia N Diabetes N Bleeding Disorder N Seizures/Epilepsy N Cardiac Stent N Tuberculosis N A-FIB N BPH N Lymphoma N Urinary Tract Infection N Back Problems N Diverticulitis N Dementia N Asthma N Vision Problems N Lupus N Pot Pusher Medication Use N Peripheral Vascular Disease N [...] SNOMED-CT Code Diagnosis ICD10 Code Diagnosis Note [id number] JEFFERY SEAY PA-C [facility] [address] [facility] [address] [place] [address] 06/24/2023 13:56:39 06/24/2023 16:23:44 Pain of right ankle joint [id number] 2609536 M25.571 Screening procedure 2012 5006 Z13.9 R53.83 M89.9 M94.9 Z01.812 E55.9 Z13.228 Z13.1 M02.80 Instabilit y of joint of right ankle 4761891168 028536 M25.371 153131 JEFFERY SEAY PA-C [facility] [address] [facility] [address] [place] [address] 07/16/2023 13:15:46 07/24/2023 14:37:19 Pain of right ankle joint 9548537951 1102801 M25.571 Instabilit y of joint of right ankle 9279927734 781309 M25.371 Vitamin D deficiency 347 55758 E55.9 R53.83 M89.9 M94.9 Recommend vitamin D 50,000 IU/week x12 weeks and recheck. Health Concerns Section Related Observation LastModified by Organization Detai ls LastModified Time None Recorded Concern Status LastModified by Organization Details LastModified Time None Recorded Advance Directives Directive None Recorded Payers Insurance Date Sequence Insurance Name Policy Number Policy Gandhi Covered Member ID Gandhi Member ID Guarantor Name 06/19/2023 1 [place] 104 Monica Dominguez [id number] Monica Li 02/29/2024 1 [place] [facility] - FEDERAL EMPLOYEE PROGRAM (PPO) [id number] [place] L [employer] [place] [id number] Monica Li Notes Date Note Type Note [...] her pain as an 8/10 Hal Phillip [address], [place], [address], [employer] [facility] 06/24/2023 21:11:30 07/16/2023 text/html 48 y/o F [...] recent illness, CP, SOB. JEFFERY SEAY PA-C [address], [place], [address], [employer] [facility] 07/23/2023 18:35:13 OBGyn Episode No OBEpisode recorded.
--- OUTSIDE RECORDS SUMMARY | 2024-08-28 08:51 | XMS_ITS | Encounter Summary ---
Author Organization [facility] Address [address] [place] [address] Care Team Providers Care Digital Imaging Technician Name Role Phone Pedro Bermeo MD Unavailable [phone] Katherine Munguia DO Primary Care Provider [phone] Encounter Details Date Type Department Care Team (Late st Contact Info) Description 03/17/2022 [employer] Message Enc [facility] Medical Group Family Medicine [facility] [address], [address] [place] [phone] Katherine Munguia DO [address] [place], [place] [id number] [place] Social History Tobacco Use Types Packs/Day [...] 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 No / Unsure 03/19/2022 12:52 PM TUBE TURNER documented as of this encounter Functional Status * Over the past 2 weeks, how often have you been bothered by any of the following problems? Question Answer Date of Assessment Author Status Little interest or pleasure in doing things Not at all 03/19/2022 1:05 PM Flory Larios MA Act teo Feeling down, depressed, or hopeless Not at all 03/19/2022 1:05 PM Flory Larios MA Active Patient Health Questionnaire-2 Score 0 03/19/2022 1:05 PM Flory Larios MA Active documented as of this encounter Plan of Treatment Not on file documented as of this encounter Visit Diagnoses Not on filedocumented in this encounter Additional Health Concerns Infection Onset Date Last Indicated Resolved Time COVID-19 Rule Out 03/28/2022 03/28/2022 03/28/2022 8:40 PM TUBE TURNER COVID-19 Rule Out 06/05/2023 06/05/2023 06/05/2023 9:27 AM CDT Assessment Noted Time PHQ-9 Depression Total Score: 0 09/27/19 22 2:18 PM CDT documented as of this encounter Care Teams Digital Imaging Technician Relationship Specialty Start Date End Date Katherine Munguia DO [address] [place] [address] PCP - General FAMILY PRACTICE 08/31/19 Pedro Bermeo MD [place] Payroll Processor CARDIOVASCULAR DISEASE 05/08/17 documented as of this encounter
--- OUTSIDE RECORDS SUMMARY | 2024-08-28 08:51 | XMS_ITS ---
Author Organization [facility] [place] ([address]) Address [address] [place] [address] Care Team Providers Care Object Oriented Developer Name Role Phone Katherine Munguia DO Primary Care Provider Unavaila Corey Fitch Unavailable [phone] [employer], Provider Unavailable Unavailab le Allergies Allergen (clinical drug ingredient) Drug/Non Drug Allergy documented on EMR Reaction Allergy Type Onset Date Status AIM TOOTHPASTE (uncoded) hives Allergy Active SOME URIEL (uncoded) no numbing. Intensifies the pain Allergy Active Aleve hives bottom of feet and hand palms Drug Allergy Active erythromycin Erythromycin hives Drug Allergy A ctive REASON FOR VISIT [facility] Conversion Encounter Encounters Encounter Location Date Provider Diagnosis [address] [address] 08/09/2023 Provider [employer] Plan Of Treatment No Information Progress Notes * HENNYNiall DOEndy LDOB: [birth year] (49 yo F)Acc No.[id number]:08/09/2023 Patient: Monica ARREDONDO Provider: Petra Andrade :1975 A ge:48 Y S ex:Female Date:08/09/2023 Address:[address], [facility] Pcp:Katherine Munguia DO Subjective: * [...] * Electronic signature of Michael MONTANEZ-Migration on 08/28/2024 at 08:50 AM CDT Sign off status: Pending * Provider: Petra lucio Migration Date: 0 08/09/2023 Generated for Lamar guzman/Dane/Blair on: 0 08/28/2024 08:50 AM CDT
--- OUTSIDE RECORDS SUMMARY | 2024-08-28 08:51 | XMS_ITS | Clinical Summary ---
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 Gender Identity Not on file Sexual Orientation [...] 10:57 AM CDT Height 172.7 cm (5' 8) 06/07/2022 10:5 7 AM CDT Body Mass Index 31.12 06/07/2022 10:57 AM CDT Plan of Treatment Health Maintenance Due Date Last Done Comments Hepatitis C Virus (HCV) Screening 1975 Hepatitis B Immunization (1 of 3 - 19+ 3-dose series) 1992 Pneumococcal Immunization (5 0+ years) (1 of 2 - PCV) 1992 Cologuard 2018 Colonoscopy 2018 Colorectal Cancer Screening 2018 Immunochemical Fecal Occult Blood 2018 Zoster Immunization (1 of 2) 05/03/2023 SARS-COV-2 Immunization (1 - season) 2023 Influenza Immunization (Seas on Ended) 2024 12/08/2010, 01/24/2007 Respiratory Syncytial Virus (RSV) Immunization (Adult) (1 - 1-dose 75+ series) 2048 DTaP/Tdap/Td Immunization Discontinued 2014, 05/20/2008, 05/09/1998 Discussion re Starting/Frequency of Mammograms Discontinued 04/21/2019 Mammogram Discontinued 04/21/2019 Human Papillomavirus (HPV) Immunization Aged Out No longer eligible based on patient's age to complete this topic Meningococcal Immunization (ACWY) Aged Out No longer eligible based on patient's age to complete this topic Rotavirus Immunization Aged Out No lo nger eligible based on patient's age to complete this topic Insurance [facility] Care Teams Utility Hand Relationship Specialty Start Date End Date Katherine Munguia DO [address] [place] [address] PCP - General Family Medicine 05/21/22
--- OUTSIDE RECORDS SUMMARY | 2024-08-28 08:51 | XMS_ITS | Encounter Summary ---
Author Organization [facility] Address [address] [place] [address] Care Team Providers Care Ball Points Inspector Name Role Phone Pedro Bermeo MD Unavailable [phone] Katherine Munguia DO Primary Care Provider [phone] Encounter Details Date Type Department Care Team (Late st Contact Info) Description 03/30/2022 [place] [employer] Message Enc [facility] Medical Group Family Medicine - [place] [address], [address] [place] [phone] Katherine Munguia DO [address] [place] [address] Rash is back. 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 No / Unsure 03/28/2022 2:45 PM BLADE OPERATOR documented as of this encounter Plan of Treatment Not on file documented as of this encounter Visit Diagnoses Not on filedocumented in this encounter Additional Health Concerns Infection Onset Date Last Indicated Resolved Time COVID-19 Rule Out 06/05/2023 06/05/2023 06/05/2023 9:27 AM CDT Assessment Noted Time PHQ-9 Depression Total Score: 0 09/27/19 22 2:18 PM CDT documented as of this encounter Care Teams Ball Points Inspector Relationship Specialty Start Date End Date Katherine Munguia DO [address] [place] [address] PCP - General FAMILY PRACTICE 08/31/19 Pedro Bermeo MD [place] Spikemaking Supervisor CARDIOVASCULAR DISEASE 05/08/17 documented as of this encounter
--- OUTSIDE RECORDS SUMMARY | 2024-08-28 08:51 | XMS_ITS | Data Portability ---
Author Organization [facility] , [facility] Address [address] [place] [address] Assessment No assessment recorded. Plan of Treatment Reminders Order Date Submit Date Provider Last Modified By Organization Details Last Modified Time Details Appointments None recorded. Lab lh + FSH, serum 2022 023 [employer], [address] [place], [address], 3 12:30:26 pap, LB 2022 023 [employer], [address] [place], [address], 3 11:21:20 HPV E6+E7 mRNA, qualitativ e PCR, cervix 2022 023 [employer] [facility], [address] [place], [address], 3 09:59:39 FSH (follicle- stimulatin g hormone), serum 2021 022 [email or web address] [employer] [facility], [address] [place], [address], 2 18:07:12 HPV E6+E7 mRNA, qualitativ e PCR, cervix 2021 022 [employer], [address] [place], [address], 2 14:59:44 pap, LB 2021 022 [facility], [address] [facility], [place], [address], 2 15:33:41 Referral None recorded. Procedures None recorded. Surgeries None recorded. Imaging MAMMO, screening, digital, bilateral 2023 024 [email or web address], [address] [place], [address], 5 09:43:12 MRI, breast, bilateral, w/wo contrast 2022 023 [email or web address] [facility], [address] [place], [address], 3 12:42:49 MAMMO, screening, digital, bilateral 2022 023 [facility], [address] [place], [address], 4 16:08:50 US, breast, unilateral - Left breast U/S if indicated. CBE in office WNL. L sided breast pain in Upper, Outer quadrant/a xillary area noted for the past week at time of visit on 05/01/22. Last breast imaging in 12/2021 MRI that was WNL per pt. BRCA negative, TC Lifetime risk 20.4%. 2022 023 [email or web address] [facility], [address] [place], [address], 3 09:23:48 MAMMO, diagnostic , digital, unilateral - Dx mammogram of the L breast with U/S if indicated. CBE in office WNL. L sided breast pain in Upper, Outer quadrant/a xillary area noted for the past week at time of visit on 05/01/22. Last breast imaging in 12/2021 MRI that was WNL per pt. BRCA negative, TC Lifetime risk 20.4%. 2022 023 [email or web address] [facility], [address] [place], [address], 09:23:39 MRI, breast, bilateral, w/wo contrast [address] [facility], [address] [place], [address], 11:58:32 MAMMO, screening, digital, bilateral [address] [facility], [address] [place], [address], 11:58:32 Medication Orders None recorded. Patient TargetsNo targets recorded. Patient Instructions Encounter Date Encounter Id Patient Instructions Last Modified By Organization Details Last Modified Time 01/29/2023 [id number] body mass index: care instructions dariela Not available 01/30/2023 09:22:47 mammogram: about this test dariela Not available 01/30/2023 09:22:47 02/10/2024 [id number] mammogram: about this test [email or web address] Not available [...] l cervi dominga cytol ogy. Not Available [facility] [address] [place], [address], 09/19/2021 14:59:44 09/19/19 22 09/24/2021 THINP REP TIS PAP clinical information: normal Infor matio n not provi ded Not Available [facility] - [address] [place], [address], 09/24/2021 15:33:40 09/19/19 22 09/24/2021 THINP REP TIS PAP LMP: normal NONE GIVEN Not Available [address], [address], 09/24/2021 15:33:40 09/19/19 22 09/24/2021 THINP REP TIS PAP prev. Pap: normal NONE GIVEN Not Available [address], [address], 09/24/2021 15:33:40 09/19/19 22 09/24/2021 THINP REP TIS PAP prev. BX: normal NONE GIVEN Not Available [address], [address], 09/24/2021 15:33:40 09/19/19 22 09/24/2021 THINP REP TIS PAP source: normal Cervi x Not Available [address], [address], 09/24/2021 15:33:40 09/19/19 22 09/24/2021 THINP REP TIS PAP statement of adequacy: normal Satis facto ry for evalu ation . Endoc ervic al/tr ansfo rmati on zone compo nent prese nt. Age and/o r menst rual statu s not provi ded Not Available [address], [address], 09/24/2021 15:33:40 09/19/19 22 09/24/2021 THINP REP TIS PAP interpretati on/result: normal Negat teo for intra epith elial lesio n or malharshal lyndon . Not Available [address] [place], [address], 09/24/2021 15:33:40 09/19/19 22 09/24/2021 THINP REP TIS PAP comment: normal This Pap test has been evalu ated with esvin valladares techn ology . Not Available [facility] [address], [place], [address], 09/24/2021 15:33:40 09/19/19 22 09/24/2021 THINP REP TIS PAP cytotechnolo gist: normal JXD, CT( CP) CT Scree frandy Locat ion: [facility] [place] [address] [place] [address] Not Available [facility] [address], [place], [address], 09/24/2021 15:33:40 09/19/19 22 09/24/2021 THINP REP [...] clini dominga infor matio n. Not Available [facility] [address], [place], [address], 09/24/2021 15:33:40 01/30/20 23 01/30/2023 FSH AND [...] : 23.0- 116.6 mIU/m L Not Available [facility] [address] [place], [address], 01/30/2023 12:30:26 01/30/20 23 01/30/2023 FSH AND [...] barbara: 0.7-5 .6 mIU/m L Not Available [address], [address], 01/30/2023 12:30:26 01/30/20 23 01/30/2023 HPV HIGH [...] l cervi dominga cytol ogy. Not Available [address], [address], 01/31/2023 09:59:39 01/30/2002/02/2023 THINP REP TIS PAP clinical information: normal None given Not Available [facility] [place] [address] [place], [address], 02/02/2023 11:21:20 01/30/20 23 02/02/2023 THINP REP TIS PAP LMP: normal NONE GIVEN Not Available [facility] [address] [place], [address], 02/02/2023 11:21:20 01/30/20 02/02/2023 THINP REP TIS PAP prev. Pap: normal NONE GIVEN Not Available [address] [place], [address], 02/02/2023 11:21:20 01/30/20 23 02/02/2023 THINP REP TIS PAP prev. BX: normal NONE GIVEN Not Available [address] [place], [address], 02/02/2023 11:21:20 01/30/20 23 02/02/2023 THINP REP TIS PAP source: normal Cervi x Not Available [address] [place], [address], 02/02/2023 11:21:20 01/30/20 23 02/02/2023 THINP REP TIS PAP statement of adequacy: normal Satis facto ry for evalu ation . Endoc ervic al/tr ansfo rmati on zone compo nent absen t. Age and/o r menst rual statu s not provi ded Not Available [address], [address], 02/02/2023 11:21:20 01/30/20 23 02/02/2023 THINP REP TIS PAP interpretati on/result: normal Cytol ogy Resul ts: Negat teo for intra epith elial lesio n or nikolas haney . Not Available [address] [place], [address], 02/02/2023 11:21:20 01/30/20 23 02/02/2023 THINP REP TIS PAP comment: normal This Pap test has been evalu ated with compu ter jaron ashlee techn ology . Not Available [address] [place], [address], 02/02/2023 11:21:20 01/30/20 23 02/02/2023 THINP REP TIS PAP cytotechnolo gist: normal LM, CT( CP) CT scree frandy locat ion: [facility] [place] [address] [place] [address] Not Available [facility] [place] [address], [place], [address], 02/02/2023 11:21:20 01/30/20 23 02/02/2023 THINP REP [...] clini dominga infor matio n. Not Available [facility] [place] [address], [place], [address], 02/02/2023 11:21:20 03/11/19 23 12/26/2021 MRI, breas t, bilat eral, w/wo contr ast No observ ation record ed. [email or web address] [facility] [address] [place], [address], 03/24/2022 17:05:50 06/26/19 23 06/25/2022 US, breas t, bilat eral, limit ed No observ ation record ed. [facility] [address] [facility], [place], [address], 07/15/2022 11:12:33 06/26/19 23 06/25/2022 MAMMO , scree frandy, bilat eral No observ ation record ed. [facility] [address], [place], [address], 07/15/2022 11:12:56 Result Notes None recorded. Problems Name Problem SNOMED Code Status Onset Date Resolution Date Notes Provider Name and Address Organization Details Recorded Time Breast neoplasm screenin g status 946935728 Active 2020 Encounte r for other screenin g for malignan t neoplasm of breast; Progress : Stable Added By: Florecita Dove i Add to Current Problems : YES ProblemS tatus: Current Not Available [facility] 2 08:42:57 Screenin g for malignan t neoplasm of colon Active 2017 Screenin g for cancer of colon; Location : None Progress : Stable Added By: Jana Reyes Add to Current Problems : YES ProblemS tatus: Current Not Available [facility] 2 08:42:57 Lump in upper inner quadrant of left breast 91514926243 4100 Active 2020 Unspecif ied lump in the left breast, upper inner quadrant ; Progress : Stable Added By: Aaliyah Martinez Add to Current Problems : YES ProblemS tatus: Current Not Available [facility] 2 11:12:27 Cyst of ovary Completed 201810/11/2020 Unspecif ied ovarian cyst, unspecif ied side; Progress : Stable Added By: Ayde Hunt Add to Current Problems : NO ProblemS tatus: Resolve Not Available [facility] 2 08:42:57 Screenin g procedur e Completed 201710/11/2020 Encounte r for screenin g for malignan t neoplasm of colon; Progress : Stable Added By: Jana Reyes Add to Current Problems : NO ProblemS tatus: Resolve Not Available [facility] 2 11:12:27 Family history of breast cancer 252302410 Completed 201810/11/2020 Family history of malignan t neoplasm of breast; Progress : Stable Added By: Ayde Hunt Add to Current Problems : NO ProblemS tatus: Resolve Not Available [facility] 2 08:42:57 Evaluati on finding 172070071 Completed 202010/11/2020 Other abnormal and inconclu sive findings on diagnost ic imaging of breast; Progress : Stable Added By: Isabel Najera Add to Current Problems : NO ProblemS tatus: Resolve Not Available [facility] 2 11:12:27 Lump in upper outer quadrant of left breast 44330297703 4103 Completed 202010/11/2020 Unspecif ied lump in the left breast, upper outer quadrant ; Progress : Stable Added By: Racquel Mejía Add to Current Problems : NO ProblemS tatus: Resolve Not Available [facility] 2 08:42:58 Sampling of vagina for Papanico laou smear Completed 201810/11/2020 Encounte r for gynecolo gical examinat ion (general ) (routine ) without abnormal findings ; Progress : Stable Added By: Silvia Saldivar Add to Current Problems : NO ProblemS tatus: Resolve Not Available [facility] 2 08:42:57 Notes:Screening for cancer o [...] Time 06/26/19 23 Most Recent Mammogram completed eVe Hickser [facility] 01/29/2023 10:24:02 09/18/19 22 Date of Last Pap Smear completed Vee Hickser [facility] 01/29/2023 10:23:44 Appendectomy completed [facility]abell [facility] 09/15/2021 00:00:23 tonsillectomy completed Isabell TOT[facility]S (formerly [employer] 09/15/2021 00:00:29 operative procedure on knee completed Isabell [email or web address] 09/15/2021 00:00:41 repair of tendon completed Isabell [facility] 09/15/2021 00:00:55 Imaging Results None recorded. Procedure Notes None recorded. Medical Equipment None Reported. Allergies Allergen ID Allergen Name Allergen Category Reaction Reaction Severity Criticality Documentation Date Start Date Code Code System Note Provider Name and Address Organization Details Recorded Time 682178 Substance with sulfonami de structure and antibacte rial mechanism of action (substanc e) medicatio n Not available Not available Not available 12/15/20202017 03404 8003 SNOMED Sever ity: Moder ate; Not Available [facility] 1 01:19:13 831899 Medicinal product containin g macrolide and acting as antibacte rial agent (product) medicatio n Not available Not available Not available 12/15/20202017 20191 8007 SNOMED Sever ity: Moder ate; Gaby Landbridgett wyatt null, [facility] 3 10:06:00 870028 azithromy delmer medicatio n Not available Not available Not available 05/09/20212020 32800 RxNorm React ion: hives ;Otilia rity: Moder ate; Jacey Sansocie null, [facility] 4 16:51:48 316994 lidocaine medicatio n Not available Not available Not available 05/09/20212020 6387 RxNorm Sever ity: Moder ate; Not Available [facility] 2 10:24:44 715437 naproxen medicatio n Not available Not available Not available 05/01/2022 7258 RxNorm Jacey Sansocie null, [facility] 4 16:52:27 980673 erythromy [facility]mer medicatio n Not available Not available Not available 02/10/2024 4053 RxNorm Jacey Sansocie null, [facility] 4 16:52:17 Medications Name Sig Start Date Stop Date [...] Body mass index (BMI) Body weight Systolic And Diastolic Provider Name and Address Organization Details Last Updated DateTime 05/01/2022 172.72 cm 31 kg/m2 04827.84 g 130/80 mm[Hg] Gaby Landnida [facility] [facility] 05/01/2022 10:11:43 Date Recorded Body height Body temperature Systolic And Diastolic Provider Name and Address Organization Details Last Updated DateTime 09/17/2021 172.72 cm 97.8 [degF] 116/62 mm[Hg] Suki Markhams [facility] 09/17/2021 17:22:37 Date Recorded Body height Body mass index (BMI) Body weight Body temperature Systolic And Diastolic Provider Name and Address Organization Details Last Updated DateTime 01/29/2023 172.72 cm 32.7 kg/m2 26554.0 8 g 97.4 [degF] 118/76 mm[Hg] Vee Sainilister [facility] [employer] [facility] IV 10:21:00 Date Recorded Body height Body mass index (BMI) Body weight Body temperature Systolic And Diastolic Provider Name and Address Organization Details Last Updated DateTime 02/10/2024 172.72 cm 33.1 kg/m2 30227.4 2 g 97.4 [degF] 114/80 mm[Hg] Jacey Julio [facility] [facility] IV 16:51:35 Social History Question Answer Notes LastModified by Organizat ion Details LastModified Time Tobacco Smoking Status Never Smoker Gaby Almita [facility], [facility] [employer] [facility] IV 05/01/2022 10:09:09 Are You Blind Or Do You Have Difficulty Seeing? No [email or web address] Information not available 05/01/2022 Are You Deaf Or Do You Have Serious Difficulty Hearing? No Information not available 05/01/2022 What Type Of Diet Are You Following? GLUTENFREE No Carbs [email or web address] Information not available 05/01/2022 How Many Children Do You Have? -2 [email or web address] Information not available 05/01/2022 What Is Your Relationship Status? [email or web address] Information not available 05/01/2022 Are You Sexually Active? Yes [email or web address] Information not available 09/17/2021 Sex: Unknown Functional Status Question Answer Note LastModified by Organizat ion Details LastModified Time Do you use any illicit or recreational drugs? No [email or web address] Information not available 05/01/2022 Do you or have you ever used any other forms of tobacco or nicotine? No Information not available 05/01/2022 What is your level of alcohol consumption? None Information not available 05/01/2022 What is your exercise level? Moderate Information [...] Not available 2021 17:19:32 Maternal Uncle Malignant neoplasm of prostate [email or web address] Not available 2021 17:19:32 Maternal Grandmother Malignant neoplasm of urinary bladder [email or web address] Not available 2021 17:19:32 Mother Basal cell carcinoma of skin [email or web address] Not available 09/20 10:44:07 Medical History Condition Response Other Cancer N High Blood Pressure N Colon Cancer N Cytomegalovirus N Hyperthyroidism N MRSA N Blood Transfusion N Herpes (HSV) N Breast Cancer N Lung Cancer N Depression N Hypothyroidism N Incontinence N Panic Attacks N Neurological Disorder N Deep Vein Thrombosis N Anxiety Disorder Y Autoimmune disease N Arthritis N Shingles N Tuberculosis/Positive PPD N Infertility N Polycystic Ovarian Syndrome N Cervical Cancer N Chlamydia N Hematuria N Stroke N Varicosities N Seasonal allergies N Crohn's Disease N Alzheimer's/Dementia N COPD/Emphysema N Endometriosis N HPV/Genital Warts N IBS (Irritable Bowel Syndrome) N History of Abnormal Pap N High Cholesterol N Liver Disease N Fibromyalgia N Kidney Infection N Ulcer N Kidney Disease N HIV N Gallbladder disease N Sickle Cell Disease/Trait N Von Willebrand disease N ADD/ADHD N Eating Disorder N Diabetes Mellitus (non-insulin dependent ) N Anemia N Ovarian Problems N Multiple Sclerosis N Gonorrhea N Frequent Urinary Tract infections N Osteopenia N Headaches/migraines N GERD (reflux) Y Ovarian Cancer N Diabetes (insulin dependent) N Seizures/Epilepsy N Breast Problems N Fibroids N Asthma N Heart Attack N Lupus N Endometrial Cancer N Rubella [...] SNOMED-CT Code Diagnosis ICD10 Code Diagnosis Note [id number] Florecita Ovalle CNM [place] [address] [place] [address] 09/17/2021 16:59:55 09/18/2021 12:31:39 Screening for malignant neoplasm of cervix 357594642 Z12.4 Screening for malignant neoplasm of breast 924470883 Z12.39 Family his tory of breast cancer 899012658 Z80.3 Menopausal symptom 00877 002 N95.1 [id number] CHRISTINE Boogie [facility] [address] [place] [address] 05/01/2022 09:57:20 05/01/2022 11:06:53 Pain of left breast 9341104738 N64.4 Pt educated on breast cancer screening guidelines and discussed normal CBE in office. Pt encouraged to decrease caffeine, chocolate, and nut intake in diet, and push p.o. water intake. Pt may use OTC NSAID therapy. Pt given order for Dx mamm with U/S if indicated of L breast. Further POC pending imaging result review. Pt states understand ing of POC. [id number] Florecita Ovalle CNM [facility] [address] [place] [address] 01/29/2023 10:11:59 01/30/2023 12:29:47 Gynecologic examination 29719617 Z01.419 Screening for malignant neoplasm of breast 204135929 Z12.31 Depression screening 171 513671 Z13.31 refer to intake screening Amenorrhea 53022597 N91. 2 Screening for malignant neoplasm of cervix 704959610 Z12.4 At [facility] ed risk of malignant neoplasm of breast 460281233 Z91.89 Plan MRI now and Mammogram in summer. Followup for CBE in office in 6 months. Genetic predisposition 24534934 Z15.01 [id number] MICHELLE STEWART NP [facility] [address] [place] [address] 02/10/2024 16:33:54 02/12/2024 12:49:32 Depression screening 950003959 Z13.31 refer to intake screening Pain of left breast 1010 178967 N64.4 Patient reporting pain left breast into [...] Member ID Gandhi Member ID Guarantor Name 02/10/2024 1 [employer] 104 Monica Queen Jen Dominguez [id number] Monica Dominguez 04/12/2024 1 [employer] 104 Monica Bret Dominguez [id number] Monica Dominguez Notes Date Note Type Note Provider Name [...] for an Annual Pap Florecita Ovalle CNM [address] [place], [address], [facility] 09/20/2021 10:55:17 05/01/2022 text/html Patient is [...] has no other concerns. CHRISTINE Boogie [address] [place], [address], [facility] 05/01/2022 10:46:00 01/29/2023 text/html Annual GYNReport [...] starting age 38 Florecita Ovalle CNM [address] [place], [address], [facility] 01/30/2023 09:53:26 02/10/2024 text/html Patient is [...] years. Pt has no other concerns. MICHELLE STEWART, GL[employer] M[employer] CLEANER [address] [facility], [place], [address], [facility] - [facility] 02/11/2024 13:42:33 OBGyn Episode No OBEpisode recorded.
--- OUTSIDE RECORDS SUMMARY | 2024-08-28 08:51 | XMS_ITS | Encounter Summary ---
Author Organization 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 No / Unsure 02/03/2020 2:13 PM PHARMACEUTICAL BOTANIST documented as of this encounter Plan of Treatment Not on file documented as of this encounter Visit Diagnoses Not on filedocumented in this encounter Additional Health Concerns Infection Onset Date Last Indicated Resolved Time COVID-19 Rule Out 10/17/2020 10/17/2020 10/18/2020 1:38 PM CDT COVID-19 Rule Out 02/14/2021 02/14/2021 02/16/2021 2:27 AM PHARMACEUTICAL BOTANIST COVID-19 Rule Out 05/04/2021 05/04/2021 05/05/2021 2:45 PM PHARMACEUTICAL BOTANIST COVID-19 Rule Out 05/07/2021 05/07/2021 05/08/2021 1:42 AM CDT COVID-19 Rule Out 03/28/2022 03/28/2022 03/28/2022 8:40 PM PHARMACEUTICAL BOTANIST COVID-19 Rule Out 06/05/2023 06/05/2023 06/05/2023 9:27 AM CDT documented as of this encounter Care Teams Admissions Specialist Relationship Specialty Start Date End Date Katherine Munguia DO [address] [place] [address] PCP - General FAMILY PRACTICE 08/31/19 Pedro Bermeo MD [place] Belt Cutter CARDIOVASCULAR DISEASE 05/08/17 documented as of this encounter
--- OUTSIDE RECORDS SUMMARY | 2024-08-28 08:51 | XMS_ITS | Encounter Summary ---
Author Organization [facility] Address [address] [place] [address] Care Team Providers Care Utilization Management Rn Name Role Phone Pedro Bermeo MD Unavailable [phone] Katherine Munguia DO Primary Care Provider [phone] Encounter Details Date Type Department Care Team (Late st Contact Info) Description 03/15/2020 En[employer] Message Enc [facility] Family Medicine - [place] [address] [facility], [address] [place] [phone] Katherine Munguia DO [address] [place] [address] RE: Question Social History Tobacco [...] 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 No / Unsure 03/10/2020 10:13 AM FAMILY INDEPENDENCE CASE MANAGER documented as of this encounter Plan of Treatment Not on file documented as of this encounter Visit Diagnoses Not on filedocumented in this encounter Additional Health Concerns Infection Onset Date Last Indicated Resolved Time COVID-19 Rule Out 10/17/2020 10/17/2020 10/18/2020 1:38 PM CDT COVID-19 Rule Out 02/14/2021 02/14/2021 02/16/2021 2:27 AM FAMILY INDEPENDENCE CASE MANAGER COVID-19 Rule Out 05/04/2021 05/04/2021 05/05/2021 2:45 PM FAMILY INDEPENDENCE CASE MANAGER COVID-19 Rule Out 05/07/2021 05/07/2021 05/08/2021 1:42 AM CDT COVID-19 Rule Out 03/28/2022 03/28/2022 03/28/2022 8:40 PM FAMILY INDEPENDENCE CASE MANAGER COVID-19 Rule Out 06/05/2023 06/05/2023 06/05/2023 9:27 AM CDT documented as of this encounter Care Teams Utilization Management Rn Relationship Specialty Start Date End Date Katherine Munguia DO [address] [place] [address] PCP - General FAMILY PRACTICE 08/31/19 Pedro Bermeo MD [place] Consumer Electronics Merchandiser CARDIOVASCULAR DISEASE 05/08/17 documented as of this encounter
--- NOTE | 2024-08-28 08:52 | ED_ITS ---
HPI - URI/Sore Throat General Chief Complaint: Upper Respiratory Infection Stated Complaint: swollen throat Time Seen by Provider: 08/28/24 09:00 Source: patient Mode of arrival: ambulatory Limitations: no limitations History of Present Illness HPI Narrative: Monica is a 49-year-old female patient presenting to the clinic today with complaints of sore throat, nasal congestion, drainage going in the back of her throat x1 week. She reports no known fevers, chills, body aches. Does feel as though her cervical, axilla, and groin lymph nodes are achy. Denies any chest pain or shortness of breath. Has not taken anything other than and lemon water to alleviate her symptoms. Rates her pain a 3/10 currently. Related Data Home Medications ?Medication ?Instructions ?Recorded ?Confirmed ?Last Taken ?Type pantoprazole 20 mg tablet,delayed 20 mg PO DAILY PRN spicy food 10/02/21 09/27/22 Unknown History release Allergies Allergy/AdvReac Type Severity Reaction Status Date / Time erythromycin base Allergy Rash Verified 08/28/24 08:56 lidocaine AdvReac Mild Other Verified 08/28/24 08:56 naproxen (From Aleve) AdvReac Hives Verified 08/28/24 08:56 Review of Systems Review of Systems: Pertinent positives per HPI. Patient denies any fever, chills, rash, headache, visual changes, dizziness, cough, shortness of breath, chest pain, palpitations, nausea, vomiting, diarrhea, constipation, abdominal pain, or any urinary issues. [facility] Past Medical History Medical History TIA (transient ischemic attack) Seizure disorder DVT (deep venous thrombosis) Social History Social History Smoking status: Never smoker Alcohol intake: current Substance use: never Living arrangements: with family Spiritual care concerns: No Comments At the time of my signature, I reviewed and agree with the nursing past medical, surgical, social, and family history. There is no relevant family history pertinent to the patient complaint. Exam Narrative: General: Well-developed, well nourished, in no apparent distress Head: Normocephalic, atraumatic Eyes: Pupils equally round and reactive to light bilaterally, EOM intact, sclera and conjunctive clear, no discharge, lids normal Ears: TMs intact and clear, ear canals clear, no drainage, grossly hearing normal. Nose: Nares patent, clear nasal discharge, mild inflammation, no sinus tenderness. Mouth: Oral pharynx without lesions or masses, good dentition, MMM. Postnasal drip Neck: Supple, trachea midline, no enlargement of anterior or posterior cervical nodes, no thyroid masses or goiter palpable. Cardio: Regular rate and rhythm, s1 and s2 normal, no murmur appreciated. Resp: Clear to auscultation bilaterally, no rhonchi, rales, wheezing or rubs Course Course Emergency Course: Portions of this record may have been created with voice recognition software. Level of Care: Express Care Visit Vital Signs Vital signs: Vital Signs Temperature 36.8 C 08/28/24 08:55 Pulse Rate 63 08/28/24 08:55 Respiratory Rate 18 08/28/24 08:55 Blood Pressure 141/75 H 08/28/24 08:55 Pulse Oximetry 98 08/28/24 08:55 Oxygen Delivery Room Air 08/28/24 08:55 Temperature 36.8 C 08/28/24 08:55 Pulse Rate 63 08/28/24 08:55 Respiratory Rate 18 08/28/24 08:55 Blood Pressure 141/75 H 08/28/24 08:55 Pulse Oximetry 98 08/28/24 08:55 Oxygen Delivery Room Air 08/28/24 08:55 Vital signs reviewed MDM - URI/Sore Throat MDM Narrative Medical decision making narrative: At the time of visit patient is resting comfortably on the exam table. Patient appears to be nontoxic. Labs: Strep test was obtained and negative in the clinic today. We will send strep for culture. Plan: I suspect patient has allergic rhinitis with postnasal drip. No sign of bacterial infection in the clinic today. Lung sounds are clear. Supportive measures were discussed with the patient and they voiced understanding discharge instructions and agrees to treatment plan. Return precautions reviewed Differential Diagnosis Differential diagnosis: Likely upper respiratory infection, otitis media, sinusitis, viral infection, bronchitis, influenza, pharyngitis and other (COVID) Discharge Plan Discharge Clinical Impression: Allergic rhinitis with postnasal drip Patient Disposition: Home Condition: Stable Instructions: Antibiotic Form, Allergies (ED), Postnasal Drip (DC) Additional Instructions: Strep test was negative in the clinic today. We will send strep for culture if this comes back positive we will contact him place you on antibiotics at that time. Increase fluids and stay well hydrated Tylenol/motrin for pain/fever Flonase and OTC antihistamines such as Zyrtec or Claritin as directed Vicks vapor rub to open sinuses Sinus rinses for congestion Cepacol spray, cough drops, throat lozenges, warm tea with honey/lemon, gargle salt water to soothe throat BRAT diet for diarrhea Clear liquids x 24 hours then advance as tolerated for nausea/vomiting Go to the ED if you develop a worsening in your condition- high fever not controlled by Tylenol or Motrin, dehydration, weakness, lethargy, shortness of breath, or chest pain. Follow up with your PCP in 3-5 days if symptoms persist. Patient Language: Georgian Prescriptions: No Action pantoprazole 20 mg tablet,delayed release (DR/EC) 20 mg PO DAILY PRN (Reason: spicy food) Follow-up/Referrals: Ezra,DO Katherine [Primary Care Provider] - Time of Disposition: 09:05 Quality NIHSS Nursing Documentation ED NIHSS nursing documentation: reviewed/agree
--- OUTSIDE RECORDS SUMMARY | 2024-08-28 08:52 | XMS_ITS | Clinical Summary ---
Author Organization [facility] al Address [address] [place] [address] Care Team Providers Care Automobile Technician Name Role Phone Katherine Munguia Primary Care Provider [phone] Aretha Robin MD Unavailable [phone] Allergies Active Allergy Reactions Criticality Noted [...] disorders of Eustachian tube, unspecified ear 10/15/2010 Encounters Date Type Department Care Team Description 06/10/2024 1:00 PM CDT - 06/10/2024 11:59 PM CDT Hospital Encounter [facility] Medical Office Bldg [address] [address] Mastodynia Discharge Disposition: Discharge to home or self care from Last 3 Months Surgical History Surgery Date Site/Laterality Comments [place] TONSILLECTOMY PRIMARY/SEC ONDARY <AGE 12 02/24/1979 - 02/24/1980 Tonsillectomy - (Added by TW Conv) [place] APPENDECTOMY 02/25/2004 - 02/23/2005 Appendectomy - (Added [...] on file Legal Sex Female 5:13 AM BOOT LACE CUTTER MACHINE Gender Identity Not on file Sexual Orientation Not on file Obstetrics History Para Term AB IAB SAB Ectopic Multiple Livin g Live Births 0 0 0 0 0 0 0 0 0 0 0 Last Filed Vital Signs Vital Sign Reading Time Taken Comments Blood Pressure 129/70 03/28/2023 4:45 PM BOOT LACE CUTTER MACHINE Pulse 68 03/28/2023 4:50 PM BOOT LACE CUTTER MACHINE Temperature 36.2 C (97.2 F) 03/28/2023 3:10 PM BOOT LACE CUTTER MACHINE Respiratory Rate 15 03/28/2023 4:50 PM BOOT LACE CUTTER MACHINE Oxygen Saturation 95% 03/28/2023 4:50 PM BOOT LACE CUTTER MACHINE Inhaled Oxygen Concentration - - Weight 99.8 kg (220 lb) 06/10/2024 1:20 PM CDT Height 167.6 cm (5' 6) 06/10/2024 1:20 PM CDT Body Mass Index 35.51 06/10/2024 1:20 PM CDT Plan of Treatment Health Maintenance Due Date Last Done Comments Cervical Cancer Screening 1973 Colon Cancer Screening-Colonoscopy 1973 Depression Screening 1973 Hepatitis C Screening 1973 Hepatitis B Screening 05/03/1991 Regular Well Visit/Exam 18-64 05/03/1991 Pneumococcal vaccine <65 (1 of 2 - PCV) 1992 Zoster Vaccine (1 of 2) 05/03/2023 DTaP/Tdap/Td Vaccine (2 - Td or Tdap) 02/25/2024 02/24/2014, 05/20/2008, 05/09/1998 Influenza Vaccine (#1) 2024 12/08/2010, 2006 Breast Cancer Screening-Mammogram 06/10/2025 06/10/2024, 06/13/2023, 06/13/2023, Additional history exists Medical Devices Implanted Type Area Appeals Representative Device Identifier Shelf Expiration Date Model / Serial / Lot [employer] [place] Meniscal Repair Curved 2 0 Fiberwire Fiberstitch Ar-4570 - [id number] Implanted:Qty: 1 on 03/28/2023 by Ricky Johns IV, MD at [facility] Right: Knee [employer] 11/23/2026 AR-4570 / / 23C21 [employer] [place] Meniscal Repair Curved 2 0 Fiberwire Fiberstitch Ar-4570 - [id number] Implanted:Qty: 1 on 03/28/2023 by Ricky Johns IV, MD at [facility] Right: Knee [employer] 11/23/2026 AR-4570 / / 23C21 [employer] Screw Fastthread Biocomposite Interference 7mm X 20mm Ar-4020c-07 - [id number] Implanted:Qty: 1 on 03/28/2023 by Ricky Johns IV, MD at [facility] Right: Femur [employer] 08/23/2026 AR-4020C-0 7 / / [id number] [employer] Screw Fastthread Biocomposite Interference 9mm X 20mm Ar-4020c-09 - [id number] Implanted:Qty: 1 on 03/28/2023 by Ricky Johns IV, MD at [facility] Right: Tibia [employer] 11/23/2026 AR-4020C-0 9 / / [id number] Procedures Procedure Name Priority Date/Time Associated Diagnosis Comments SCREENING MAMMOGRAM BILATERAL W JOSE ELIAS Schedule Routine, Read Routine (OP Routine) 06/10/2024 1:19 PM CDT Mastodynia from Last 3 Months Results * Screening Mammogram Bilateral W Jose Elias (06/10/2024 1:19 PM CDT) Anatomical Region Laterality Modality Breast Bilateral Mammography Impressions 06/10/2024 1:25 PM CDT BI-RADS ATLAS category (overall): 1 - Negative There is no mammographic evidence of malignancy. A 1 year screening mammogram is recommended. The patient has been or will be contacted. We recommend annual screening mammography for women at average risk of breast cancer beginning at age 40, based on guidelines of the [employer] (ACR Practice Parameter for the Performance of Screening and Diagnostic Mammography) and [employer]. For women with and elevated risk of breast cancer, please refer to the ACR Practice Parameter for specific screening recommendations. The patient will be entered into a reminder system with a target due date of 1 year for her next screening exam. Narrative 06/10/2024 1:25 PM CDT Screening Mammogram Bilateral W Jose Elias: 06/10/24 The study was acquired using full field digital technology and interpreted from soft copy. 2D digital mammographic views, as well as 3D digital tomosynthesis were performed in the CC and MLO projections. CLINICAL: Mastodynia. No relevant medical history has been documented for this patient. History of breast cancer in Mother's Sister, Mother's Sister, Cousin. COMPARISONS: 06/13/2023 Screening Mammogram Bilateral W Jose Elias 06/25/2022 US Breast Left Limited 06/25/2022 Diagnostic Mammogram Bilateral W Jose Elias 01/23/2021 US Breast Bilateral Limited 01/23/2021 Diagnostic Mammogram Bilateral W Jose Elias BREAST TISSUE: There are scattered areas of fibroglandular density. FINDINGS: No suspicious masses, suspicious calcifications, or other suspicious findings are seen within either breast. There has been no suspicious change. us Provider Transcribed Order IMG MAMMO PROCEDURES Final Result from Last 3 Months Insurance BCBS FEDERAL [facility] Advance Directives For more information, please contact: [phone] * Full Code (Latest Code Status on File) Date Activated Date Inactivated Comments 03/28/2023 3:23 PM 03/28/2023 9:46 PM Care Teams Automobile Technician Relationship Specialty Start Date End Date Katherine Munguia DO [address] [address] PCP - General Family Medicine 01/10/21 Aretha Robin MD [address] [facility] [address] [place] [address] Consulting Physician Obstetrics and Gynecology 08/21/21
--- OUTSIDE RECORDS SUMMARY | 2024-08-28 08:52 | XMS_ITS | Referral Summary ---
Author Organization [facility] al Address [address] [place] [address] Care Team Providers Care Engineering Program Analyst Name Role Phone Katherine Munguia DO Primary Care Provider [phone] Aretha Robin MD Unavailable [phone] Encounters Date Type Department Care Team Description 06/10/2024 1:00 PM CDT - 06/10/2024 11:59 PM CDT Hospital Encounter [facility] Medical Office Bldg 1 [facility] [address] [facility] [address] [place] [address] Mastodynia Discharge Disposition: Discharge to home or self care from Last 3 Months Allergies Active Allergy Reactions Criticality Noted Date [...] on file Legal Sex Female 5:13 AM SHOW OPERATIONS SUPERVISOR Gender Identity Not on file Sexual Orientation Not on file Last Filed Vital Signs Vital Sign Reading Time Taken Comments Blood Pressure 129/70 03/28/2023 4:45 PM SHOW OPERATIONS SUPERVISOR Pulse 68 03/28/2023 4:50 PM SHOW OPERATIONS SUPERVISOR Temperature 36.2 C (97.2 F) 03/28/2023 3:10 PM SHOW OPERATIONS SUPERVISOR Respiratory Rate 15 03/28/2023 4:50 PM SHOW OPERATIONS SUPERVISOR Oxygen Saturation 95% 03/28/2023 4:50 PM SHOW OPERATIONS SUPERVISOR Inhaled Oxygen Concentration - - Weight 99.8 kg (220 lb) 06/10/2024 1:20 PM CDT Height 167.6 cm (5' 6) 06/10/2024 1:20 PM CDT Body Mass Index 35.51 06/10/2024 1:20 PM CDT Plan of Treatment Not on file Medical Devices Implanted Type Area Armament Installer Device Identifier Shelf Expiration Date Model / Serial / Lot [employer] [place] Meniscal Repair Curved 2 0 [employer]wire [facility] Ar-4570 - [id number] Implanted:Qty: 1 on 03/28/2023 by Ricky Johns IV, MD at [facility] Right: Knee [employer] 11/23/2026 AR-4570 / / 23C21 [employer] [place] Meniscal Repair Curved 2 0 Fiberwire Fiberstitch Ar-4570 - [id number] Implanted:Qty: 1 on 03/28/2023 by Ricky Johns IV, MD at [facility] Right: Knee [employer] 11/23/2026 AR-4570 / / 23C21 [employer] Screw Fastthread Biocomposite Interference 7mm X 20mm Ar-4020c-07 - [id number] Implanted:Qty: 1 on 03/28/2023 by Ricky Johns IV, MD at [facility] Right: Femur [employer] 08/23/2026 AR-4020C-0 7 / / [id number] [employer] Screw Fastthread Biocomposite Interference 9mm X 20mm Ar-4020c-09 - [id number] Implanted:Qty: 1 on 03/28/2023 by Ricky Johns IV, MD at [facility] Right: Tibia [employer] 11/23/2026 AR-4020C-0 9 / / [id number] Procedures Procedure Name Priority Date/Time Associated Diagnosis Comments SCREENING MAMMOGRAM BILATERAL W JUVE Schedule Routine, Read Routine (OP Routine) 06/10/2024 1:19 PM CDT Mastodynia from Last 3 Months Results * Screening Mammogram Bilateral W Juve (06/10/2024 1:19 PM CDT) Anatomical Region Laterality [...] age 40, based on guidelines of the [employer] [employer] (ACR Practice Parameter for the Performance of Screening and Diagnostic Mammography) and [employer]nec[employer]. For women with and elevated risk of breast cancer, please refer to the ACR Practice Parameter for specific screening recommendations. The patient will be entered into a reminder system with a target due date of 1 year for her next screening exam. Narrative 06/10/2024 1:25 PM CDT Screening Mammogram Bilateral W Juve: 06/10/24 The study was acquired using full field digital technology and interpreted from soft copy. 2D digital mammographic views, as well as 3D digital tomosynthesis were performed in the CC and MLO projections. CLINICAL: Mastodynia. No relevant medical history has been documented for this patient. History of breast cancer in Mother's Sister, Mother's Sister, Cousin. COMPARISONS: 06/13/2023 Screening Mammogram Bilateral W Juve 06/25/2022 US Breast Left Limited 06/25/2022 Diagnostic Mammogram Bilateral W Juve 01/23/2021 US Breast Bilateral Limited 01/23/2021 Diagnostic Mammogram Bilateral W Juve BREAST TISSUE: There are scattered areas of fibroglandular density. FINDINGS: No suspicious masses, suspicious calcifications, or other suspicious findings are seen within either breast. There has been no suspicious change. us Provider Transcribed Order IMG MAMMO PROCEDURES Final Result from Last 3 Months Insurance [facility] Advance Directives For more information, please contact: [phone] * Full Code (Latest Code Status on File) Date Activated Date Inactivated Comments 03/28/2023 3:23 PM 03/28/2023 9:46 PM Care Teams Engineering Program Analyst Relationship Specialty Start Date End Date Katherine Munguia DO [address] [address] PCP - General Family Medicine 01/10/21 Aretha Robin MD [address] [address] Consulting Physician Obstetrics and Gynecology 08/21/21
[2024-08-28 08:55] VITALS: BP 141/75; PULSE 63; RESP 18; TEMP 36.8; O2SAT 98
[2024-08-28 09:11] LABS: EDSTREPNEGPOS1 Negative (Negative)
== END 2024-08-28 09:08 | disposition home or self-care (01) ==
PROVIDERS: Emergency Provider Nurse Practitioner Family; PCP Family Medicine
DX: J30.9 Allergic rhinitis, unspecified (principal); R09.82 Postnasal drip; Z86.718 Personal history of other venous thrombosis and embolism; Z86.73 Personal history of transient ischemic attack (TIA), and cerebral infarction without residual deficits
CPT/HCPCS: 87081; 87880; 99213; G0463

== ENCOUNTER 2024-10-16 09:15 | Emergency (ER) | payer BC, SELFPAY ==
--- OUTSIDE RECORDS SUMMARY | 2023-08-09 16:30 | XMS_ITS ---
Author Organization [facility] [place] ([address]) Address [address] [place] [address] Care Team Providers Care Maid Cleaning Cooking Name Role Phone Katherine Munguia DO Primary Care Provider Unavaila Corey Fitch Unavailable [phone] [facility], Provider Unavailable Unavailab le Allergies Allergen (clinical drug ingredient) Drug/Non Drug Allergy documented on EMR Reaction Allergy Type Onset Date Status AIM TOOTHPASTE (uncoded) hives Allergy Active SOME URIEL (uncoded) no numbing. Intensifies the pain Allergy Active Aleve hives bottom of feet and hand palms Drug Allergy Active erythromycin Erythromycin hives Drug Allergy A ctive REASON FOR VISIT [facility] To [facility] Conversion Encounter Encounters Encounter Location Date Provider Diagnosis [address] [address] 08/09/2023 Provider ZZ-Migration Plan Of Treatment No Information Progress Notes * HENNYNiall DOEndy LDOB: [birth year] (49 yo F)Acc No.[id number]:08/09/2023 Patient: Monica ARREDONDO Provider: Petra Andrade :1975 A ge:48 Y S ex:Female Date:08/09/2023 Address:[address], [facility] Pcp:Katherine Munguia DO Subjective: * Chief Complaints: * 1 . [facility] To [facility] Conversion Encounter. * Medical History: * Allergies: E rythromycin: hives, Aleve: hives bottom of feet and hand palms, SOME URIEL: no numbing. Intensifies the pain, AIM TOOTHPASTE: hives. Objective: * Vitals: Assessment: Plan: * Treatment: * Billing Information: * Visit Code: * Procedure Codes: * Electronic signature of Michael MONTANEZ-Migration on 10/16/2024 at 09:18 AM CDT Sign off status: Pending * Provider: Petra lucio Migration Date: 0 08/09/2023 Generated for Lamar guzman/Dane/Blair on: 10/16/2024 09:18 AM CDT
--- OUTSIDE RECORDS SUMMARY | 2024-10-16 09:18 | XMS_ITS | Patient Health Record ---
Author Organization [facility] Address [address] [address] Care Team Providers Care Freelance Web Designer Name Role Phone J LUIS WALKER Unavailable [phone] Reason For Referral No Information Plan Of Treatment No Information
--- OUTSIDE RECORDS SUMMARY | 2024-10-16 09:18 | XMS_ITS | Clinical Summary ---
Author Organization [facility] Care Team Providers Care Saw Sharpener Name Role Phone Katherine Munguia Primary Care Provider [phone] Allergies Active Allergy Reactions Criticality Noted Date [...] Vaccine Nasal 12/08/2010,01/24/2007 MMR Vaccine 04/03/2003 Novel [id number], Injectable 03/30/2009 Rabies, Intradermal Injection 03/14/2005 TD [...] on file Legal Sex Female 10:58 AM AVIONICS TEST TECHNICIAN Gender Identity Not on file Sexual Orientation [...] Cervical Cancer Screening (CCS) 05/03/2003 HPV/Cotest 05/03/2003 Cologuard 2018 Colonoscopy 2018 Colorectal Cancer Screening 2018 Immunochemical Fecal Occult Blood 2018 Zoster Immunization (1 of 2) 05/03/2023 SARS-COV-2 Immunization ( season) 2023 Influenza Immunization (#1) 10/25/202411/24, 01/24/2007 Respiratory Syncytial Virus (RSV) Immunization (Adult) [...] patient's age to complete this topic Insurance [facility] Care Teams Saw Sharpener Relationship Specialty Start Date End Date Katherine Munguia DO [facility] [place] [address] PCP - General Family Medicine 05/21/22
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
--- OUTSIDE RECORDS SUMMARY | 2024-10-16 09:18 | XMS_ITS | Patient Health Record ---
Author Organization [facility] [employer] ([address]) Address [address] [place] [address] Care Team Providers Care Inpatient Care Manager Rn Name Role Phone Katherine Munguia DO Primary Care Provider Corey White Unavailable [phone] Allergies Allergen (clinical drug ingredient) Drug/Non Drug [...] Status Risk Notes Problem Chronic allergic conjunctivitis (96062803) Other chronic allergic conjunctivitis (H10.45) Active confirmed Problem Allergic rhinitis caused by pollen (disorder) (31706339) Allergic rhinitis due to pollen (J30.1) Active confirmed Problem Allergic rhinitis (50458118) Other allergic rhinitis (J30.89) Active confirmed Problem Chronic rhinitis (69559275) Chronic rhinitis (J31.0) Active confirmed Problem Uncomplicated mild persistent asthma (938380683) Mild persistent asthma, uncomplicated (J45.30) Active confirmed Problem Uncomplicated moderate persistent asthma (145335814) Moderate persistent asthma, uncomplicated (J45.40) Active confirmed Problem Uncomplicated severe persistent asthma (013338965) Severe persistent asthma, uncomplicated (J45.50) Active confirmed Problem Allergic rhinitis caused by animal hair and dander (433358825396420) Allergic rhinitis due to animal (cat) (dog) hair and dander (J30.81) Active confirmed Plan Of Treatment No Information Insurance Providers Payer Name Payer Address Payer Phone Subscriber Number Group Number Insured Name Patient Relationship to Insured Coverage Start Date Coverage End Date [facility] [address] [place] [address] [id number] Monica Li Self - patient is the insured Medical (General) History Surgical History Surgery Date(Month/Year) Tonsillectomy 07/26/1979 Right Wrist Tendon 09/07/2002 Apendectomy 06/05/2004 Left ACL 01/14/2008 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
--- OUTSIDE RECORDS SUMMARY | 2024-10-16 09:20 | XMS_ITS | Patient Health Record ---
Author Organization 1 OF Charmaine davila [facility] Address [address] [place] [address] Care Team Providers Care Iron Worker Foreman Name Role Phone Dr Katherine Munguia Primary Care Provider Janis Pichardo Unavailable [phone] Allergies Allergen (clinical drug ingredient) Drug/Non Drug Allergy documented on EMR Reaction Allergy Type Onset Date Status Aleve Unknown Drug Allergy Active erythromycin Erythromycin Unknown Drug Allergy A ctive lidocaine Lidocaine Unknown Drug Allergy Active Reason For Referral No Information Medications Medication SIG (Take, Route, Frequency, Duration) Notes Start Date End Date Status Qdshvqad-Egegfdfjo-Hfsks eth 0.1 % 1-2 drops to affected [...] Insured Coverage Start Date Coverage End Date [facility] [address] [place] [address] [id number] Jeff Deng Self - patient is the insured Medical (General) History Surgical History Surgery Date(Month/Year) Left ACL
--- NOTE | 2024-10-16 09:22 | ED.SKABFB ---
HPI - Skin/Abscess/Foreign Bdy General Chief complaint: Skin/Abscess/Foreign Body Stated complaint: RT Hand Wasp sting Time Seen by Provider: 10/16/24 09:26 Source: patient Mode of arrival: ambulatory Limitations: no limitations History of Present Illness HPI narrative: Monica is a 49-year-old female patient presenting to the clinic today with complaints of a wasp sting to her right hand that occurred yesterday. She reports she has a taken Benadryl, applied baking soda paste, applied ice pack, and has kept the hand elevated. States the swelling is getting worse and is mildly painful. Area feels warm to touch. No fevers, chills, body aches. No drainage from the area. Denies any shortness of breath, chest pain, difficulty breathing, or difficulty swallowing Related Data Home Medications ?Medication ?Instructions ?Recorded ?Confirmed ?Last Taken ?Type pantoprazole 20 mg tablet,delayed 20 mg PO DAILY PRN spicy food 10/02/21 10/16/24 Unknown History release Allergies Allergy/AdvReac Type Severity Reaction Status Date / Time erythromycin base Allergy Rash Verified 10/16/24 09:24 lidocaine AdvReac Mild Other Verified 10/16/24 09:24 naproxen (From Aleve) AdvReac Hives Verified 10/16/24 09:24 Review of Systems Review of Systems: Pertinent positives per HPI. Patient denies any fever, chills, rash, headache, visual changes, dizziness, cough, runny nose, sore throat, shortness of breath, chest pain, palpitations, nausea, vomiting, diarrhea, constipation, abdominal pain, or any urinary issues. [facility] Past Medical History Medical History TIA (transient ischemic attack) Seizure disorder DVT (deep venous thrombosis) Social History Social History Smoking status: Never smoker Alcohol intake: current Substance use: never Living arrangements: with family Spiritual care concerns: No Comments At the time of my signature, I reviewed and agree with the nursing past medical, surgical, social, and family history. There is no relevant family history pertinent to the patient complaint. Exam Narrative: General: Well-developed, well nourished, in no apparent distress Head: Normocephalic, atraumatic. Cardio: Regular rate and rhythm, s1 and s2 normal, no murmur appreciated. Resp: Clear to auscultation bilaterally, no rhonchi, rales, wheezing or rubs. Integumentary: [place], warm, and dry, wasp sting to the right hand with localized swelling, mild redness, and mild erythema, with itching around the site, radial pulse palpable and strong Course Course Emergency Course: Portions of this record may have been created with voice recognition software. Level of Care: Express Care Visit Vital Signs Vital signs: Vital signs reviewed MDM - Skin/Abscess/Foreign Bdy MDM Narrative Medical decision making narrative: At the time of visit patient is resting comfortably on the exam table. Patient appears to be nontoxic. Complaints of a wasp sting to her right hand that occurred yesterday. She reports she has a taken Benadryl, applied baking soda paste, applied ice pack, and has kept the hand elevated. States the swelling is getting worse and is mildly painful. Area feels warm to touch. No fevers, chills, body aches. No drainage from the areaOn exam patient has a wasp sting to the right hand with localized swelling, mild redness, and mild erythema, with itching around the site, radial pulse palpable and strong Plan: I suspect patient has a large reaction due to wasp sting. Prescription for prednisone was sent to the pharmacy. No sign of cellulitic infection. Supportive measures were discussed with the patient and they voiced understanding discharge instructions and agrees to treatment plan. Return precautions reviewed Differential Diagnosis Differential diagnosis: Likely abscess of skin or subcutaneous tissue, viral exanthem, dermatophytosis, urticaria, herpes zoster, allergic reaction to drug, cellulitis, eczema, insect bites, impetigo and contact dermatitis Discharge Plan Discharge Clinical Impression: Allergic reaction to insect sting Patient Disposition: Home Condition: Stable Instructions: Antibiotic Form, Insect Bite or Sting (ED), General Allergic Reaction (ED) Additional Instructions: Take prednisone as directed Avoid hot showers May take Tylenol/Motrin as needed for pain as per bottle directions Avoid scratching as this can cause a secondary infection Apply cool compress/ice pack to the affected area for 20 minutes at a time 20 minutes on/20 minutes off May take Benadryl 25-50mg every 6 hours as needed for itching/swelling. Follow up with your PCP in 3-5 days if symptoms persist or sooner if they worsen Go to the Emergency Room if symptoms worsen- fever, rash spreading with treatment, shortness of breath, tongue swelling, drooling, or chest pain Patient Language: Azeri Prescriptions: New prednisone 20 mg tablet 40 mg PO DAILY 5 Days Qty: 10 0RF No Action pantoprazole 20 mg tablet,delayed release (DR/EC) 20 mg PO DAILY PRN (Reason: spicy food) Follow-up/Referrals: Ezra,DO Katherine [Primary Care Provider, Unknown] Time of Disposition: 09:32 Quality NIHSS Nursing Documentation ED NIHSS nursing documentation: reviewed/agree
[2024-10-16 09:24] VITALS: BP 145/68; PULSE 65; RESP 18; TEMP 36.1; O2SAT 98
== END 2024-10-16 09:33 | disposition home or self-care (01) ==
PROVIDERS: Emergency Provider Nurse Practitioner Family; PCP Family Medicine
DX: T63.461A Toxic effect of venom of wasps, accidental (unintentional), initial encounter (principal); Z86.73 Personal history of transient ischemic attack (TIA), and cerebral infarction without residual deficits; Z86.718 Personal history of other venous thrombosis and embolism
CPT/HCPCS: 99213; G0463

== ENCOUNTER 2024-11-08 08:44 | Emergency (ER) | payer BC, SELFPAY ==
--- OUTSIDE RECORDS SUMMARY | 2023-08-09 16:30 | XMS_ITS ---
Author Organization [facility] [place] ([address]) Address [address] [place] [address] Care Team Providers Care Cut Off Saw Grader Name Role Phone Katherine Munguia DO Primary Care Provider Unavaila Corey Fitch Unavailable [phone] [facility], Provider Unavailable Unavailab le Allergies Allergen (clinical drug ingredient) Drug/Non Drug Allergy documented on EMR Reaction Allergy Type Onset Date Status AIM TOOTHPASTE (uncoded) hives Allergy Active SOME URIEL (uncoded) no numbing. Intensifies the pain Allergy Active Aleve hives bottom of feet and hand palms Drug Allergy Active erythromycin Erythromycin hives Drug Allergy A ctive REASON FOR VISIT [facility] To [facility] Conversion Encounter Encounters Encounter Location Date Provider Diagnosis [address] [address] 08/09/2023 Provider ZZ-Migration Plan Of Treatment No Information Progress Notes * HENNYNiall DOEndy LDOB: [birth year] (49 yo F)Acc No.[id number]:08/09/2023 Patient: Monica ARREDONDO Provider: Petra Andrade :1975 A ge:48 Y S ex:Female Date:08/09/2023 Address:[address], [facility] Pcp:Katherine Munguia DO Subjective: * Chief [...] * Electronic signature of Michael MONTANEZ-Migration on 11/08/2024 at 09:15 AM CDT Sign off status: Pending * Provider: Petra lucio Migration Date: 0 08/09/2023 Generated for Lamar guzman/Dane/Blair on: 0 11/08/2024 09:15 AM CDT
[2024-11-08 08:57] VITALS: BP 126/77; PULSE 77; RESP 16; TEMP 36.5; O2SAT 97
--- NOTE | 2024-11-08 09:08 | ED_ITS ---
HPI - Skin/Abscess/Foreign Bdy General Chief complaint: Skin/Abscess/Foreign Body Stated complaint: Insect Bite Time Seen by Provider: 11/08/24 09:08 Source: patient Mode of arrival: ambulatory Limitations: no limitations History of Present Illness HPI narrative: 49-year-old female presents with complaint of wasp sting to right arm. Patient states stung by wasp yesterday afternoon. Woke up this morning with t ight, painful swelling to right hand and forearm. Has been taking Benadryl. History of similar allergic reaction after wasp sting. Range of motion decreased due to swelling, distal neurovascularly intact. All systems reviewed and negative except as noted above. Related Data Home Medications ?Medication ?Instructions ?Recorded ?Confirmed ?Last Taken ?Type pantoprazole 20 mg tablet,delayed 20 mg PO DAILY PRN s picy food 10/02/21 11/08/24 Unknown History release Allergies Allergy/AdvReac Type Severity Reaction Status Date / Time erythromycin base Allergy Rash Verified 11/08/24 08:49 lidocaine AdvReac Mild Other Verified 11/08/24 08:49 naproxen (From Aleve) AdvReac Hives Verified 11/08/24 08:49 [facility] Past Medical History Medical History TIA (transient ischemic attack) Seizure disorder DVT (deep venous thrombosis) Social History Social History Smoking status: Never smoker Alcohol intake: current Substance use: never Living arrangements: with family Spiritual care concerns: No Comments At time of signature, agree with nursing past medical, surgical, social and family history. There is no relevant family history pertinent to the presenting complaint. Exam Narrative: GENERAL: This is a well-nourished, well-developed patient, in no apparent distress. HEAD: normocephalic, atraumatic. EYES: PERRL. Sclera clear/white. Vision is grossly intact. EARS: External ears normal NOSE: External nose normal NECK: Neck supple, non-tender without lymphadenopathy, masses or thyromegaly. CARDIOVASCULAR: Regular rate and rhythm without murmurs, gallops, or rubs. RESPIRATORY: Clear to auscultation. Breath sounds equal bilaterally. No wheezes, rales, or rhonchi. SKIN: warm, Dry, intact with no suspicious lesions or rash, good texture and turgor. NEURO: awake, alert, and oriented to person, place and time. There were no obvious focal neurologic abnormalities. EXTREMITIES: Swelling erythema and warmth to right hand extending to right mid forearm. Skin is tight and shiny. Distal neurovascularly intact. Course Course Level of Care: Express Care Visit Vital Signs Vital signs: Vital Signs Temperature 36.5 C 11/08/24 08:57 Pulse Rate 77 11/08/24 08:57 Respiratory Rate 16 11/08/24 08:57 Blood Pressure 126/77 11/08/24 08:57 Pulse Oximetry 97 11/08/24 08:57 Oxygen Delivery Room Air 11/08/24 08:57 Temperature 36.5 C 11/08/24 08:57 Pulse Rate 77 11/08/24 08:57 Respiratory Rate 16 11/08/24 08:57 Blood Pressure 126/77 11/08/24 08:57 Pulse Oximetry 97 11/08/24 08:57 Oxygen Delivery Room Air 11/08/24 08:57 Reviewed MDM - Skin/Abscess/Foreign Bdy MDM Narrative Medical decision making narrative: will treat with prednisone, cephalexin. Recommend follow-up with primary care physician. Patient is well-appearing, nontoxic. No respiratory distress or complaints of airway swelling. Differential Diagnosis Differential diagnosis: Likely abscess of skin or subcutaneous tissue, cellulitis and insect bites Discharge Plan Discharge Clinical Impression: Accidental wasp sting Patient Disposition: Home Condition: Stable Instructions: Insect Bite or Sting (ED) Additional Instructions: Start prednisone prescription tomorrow morning. Continue taking Benadryl every 6 hours as needed for swelling, itching. Apply ice as needed for pain. Keep elevated when at rest. Follow-up with your primary care physician if not improving. Patient Language: Micronesian Prescriptions: New prednisone 20 mg tablet 40 mg PO DAILY 5 Days Qty: 10 0RF cephalexin 500 mg capsule 500 mg PO Q12H 7 Days Qty: 14 0RF No Action pantoprazole 20 mg tablet,delayed release (DR/EC) 20 mg PO DAILY PRN (Reason: spicy food) Follow-up/Referrals: PHYSICIAN,CHIEF ESTIMATOR [Primary Care Provider, Internal Medicine] Time of Disposition: :15
--- OUTSIDE RECORDS SUMMARY | 2024-11-08 09:15 | XMS_ITS | Clinical Summary ---
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 [place] [address] PCP - General Family Medicine 05/21/22
--- OUTSIDE RECORDS SUMMARY | 2024-11-08 09:15 | XMS_ITS | Patient Health Record ---
Author Organization [facility] [employer] [place] ([address]) Address [address] [place] [address] Care Team Providers Care Radiology Interventional Physician Name Role Phone Katherine Munguia DO Primary Care Provider Corey White Unavailable [phone] Allergies Allergen (clinical drug ingredient) Drug/Non Drug [...] Status Risk Notes Problem Chronic allergic conjunctivitis (62934173) Other chronic allergic conjunctivitis (H10.45) Active confirmed Problem Allergic rhinitis caused by pollen (disorder) (84438842) Allergic rhinitis due to pollen (J30.1) Active confirmed Problem Allergic rhinitis (17383313) Other allergic rhinitis (J30.89) Active confirmed Problem Chronic rhinitis (64071038) Chronic rhinitis (J31.0) Active confirmed Problem Uncomplicated mild persistent asthma (863202925) Mild persistent asthma, uncomplicated (J45.30) Active confirmed Problem Uncomplicated moderate persistent asthma (140878791) Moderate persistent asthma, uncomplicated (J45.40) Active confirmed Problem Uncomplicated severe persistent asthma (976420921) Severe persistent asthma, uncomplicated (J45.50) Active confirmed Problem Allergic rhinitis caused by animal hair and dander (428506233576784) Allergic rhinitis due to animal (cat) (dog) hair and dander (J30.81) Active confirmed Plan Of Treatment No Information Insurance Providers Payer Name Payer Address Payer Phone Subscriber Number Group Number Insured Name Patient Relationship to Insured Coverage Start Date Coverage End Date [facility] [address] [place] [address] [id number] Monica Li Self - patient is the insured Medical (General) History Surgical History Surgery Date(Month/Year) Tonsillectomy 07/26/1979 Right Wrist Tendon 09/07/2002 Apendectomy 06/05/2004 Left ACL 01/14/2008 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
--- OUTSIDE RECORDS SUMMARY | 2024-11-08 09:15 | XMS_ITS | Patient Health Record ---
Author Organization 1 OF Charmaine davila [facility] Address [address] [place] [address] Care Team Providers Care Physician Anesthesiologist Name Role Phone Dr Katherine Munguia Primary Care Provider Janis Pichardo Unavailable [phone] Allergies Allergen (clinical drug ingredient) Drug/Non Drug Allergy documented on EMR Reaction Allergy Type Onset Date Status Aleve Unknown Drug Allergy Active erythromycin Erythromycin Unknown Drug Allergy A ctive lidocaine Lidocaine Unknown Drug Allergy Active Reason For Referral No Information Medications Medication SIG (Take, Route, Frequency, Duration) Notes Start Date End Date Status Nxqbsstf-Belbdtipf-Qvfqv eth 0.1 % 1-2 drops to affected [...] W/U Status Risk Notes Problem Raynaud's disease (777475871) Raynaud's disease without gangrene (I73.00) Active confirmed Plan Of Treatment No Information Insurance Providers Payer Name Payer Address Payer Phone Subscriber Number Group Number Insured Name Patient Relationship to Insured Coverage Start Date Coverage End Date [facility] [address] [place] [address] [id number] Jeff Deng Self - patient is the insured Medical (General) History Surgical History Surgery Date(Month/Year) Left ACL
--- OUTSIDE RECORDS SUMMARY | 2024-11-08 09:15 | XMS_ITS | Patient Health Record ---
Author Organization [facility] Address [address] [place] [address] Care Team Providers Care Municipal Court Magistrate Name Role Phone DENISEDIPIKAFI Unavailable [phone] Reason For Referral No Information Plan Of Treatment No Information
--- OUTSIDE RECORDS SUMMARY | 2024-11-08 09:16 | XMS_ITS | Clinical Summary ---
Author Organization [facility] Address [address] [place] [address] Care Team Providers Care Scientific Affairs Manager Name Role Phone Katherine Munguia Primary Care Provider [phone] Aretha Robin MD Unavailable [phone] Allergies Active Allergy Reactions Criticality Noted [...] 10/15/2010 Surgical History Surgery Date Site/Laterality Comments SC TONSILLECTOMY PRIMARY/SEC ONDARY <AGE 12 02/24/1979 - 02/24/1980 Tonsillectomy - (Added by TW Conv) SC APPENDECTOMY 02/25/2004 - 02/23/2005 Appendectomy - (Added [...] on file Legal Sex Female 5:13 AM HUMAN RESOURCE STATISTICIAN Gender Identity Not on file Sexual Orientation Not on file Obstetrics History Para Term AB IAB SAB Ectopic Multiple Livin g Live Births 0 0 0 0 0 0 0 0 0 0 0 Last Filed Vital Signs Vital Sign Reading Time Taken Comments Blood Pressure 129/70 03/28/2023 4:45 PM HUMAN RESOURCE STATISTICIAN Pulse 68 03/28/2023 4:50 PM HUMAN RESOURCE STATISTICIAN Temperature 36.2 C (97.2 F) 03/28/2023 3:10 PM HUMAN RESOURCE STATISTICIAN Respiratory Rate 15 03/28/2023 4:50 PM HUMAN RESOURCE STATISTICIAN Oxygen Saturation 95% 03/28/2023 4:50 PM HUMAN RESOURCE STATISTICIAN Inhaled Oxygen Concentration - - Weight 99.8 [...] history exists Medical Devices Implanted Type Area Manager Of Procurement Device Identifier Shelf Expiration Date Model / Serial / Lot [employer] Wishram Meniscal Repair Curved 2 0 Fiberwire Fiberstitch Ar-4570 - [id number] Implanted:Qty: 1 on 03/28/2023 by Ricky Johns IV, MD at [facility] Right: Knee [employer] 11/23/2026 AR-4570 / / [id number] [employer] Wishram Meniscal Repair Curved 2 0 Fiberwire Fiberstitch Ar-4570 - [id number] Implanted:Qty: 1 on 03/28/2023 by Ricky oJhns IV, MD at [facility] Right: Knee [employer] 11/23/2026 AR-4570 / / [id number] [employer] Screw Fastthread Biocomposite Interference 7mm X 20mm Ar-4020c-07 - [id number] Implanted:Qty: 1 on 03/28/2023 by Ricky Johns IV, MD at [facility] Right: Femur [employer] 08/23/2026 AR-4020C-0 7 / / [id number] [employer] Screw Fastthread Biocomposite Interference 9mm X 20mm Ar-4020c-09 - [id number] Implanted:Qty: 1 on 03/28/2023 by Ricky Johns IV, MD at [facility] Right: Tibia [employer] 11/23/2026 AR-4020C-0 9 / / [id number] Procedures Procedure Name Priority Date/Time Associated Diagnosis [...] age 40, based on guidelines of the [employer] (ACR Practice Parameter for the Performance of Screening and Diagnostic Mammography) and [employer]. For women [...] Most Recently Relevant to Health Maintenance Insurance [facility] [employer] [facility] [employer] Advance Directives For more information, please contact: [phone] * Full Code (Latest Code Status on File) Date Activated Date Inactivated Comments 03/28/2023 3:23 PM 03/28/2023 9:46 PM Care Teams Scientific Affairs Manager Relationship Specialty Start Date End Date Katherine Munguia DO [address] [facility] [address] [place], [place] [address] PCP - General Family Medicine 01/10/21 Aretha Robin MD [address] [facility] [address] [place] [address] Consulting Physician Obstetrics and Gynecology 08/21/21
== END 2024-11-08 09:22 | disposition home or self-care (01) ==
PROVIDERS: Emergency Provider Nurse Practitioner Family
DX: T63.461A Toxic effect of venom of wasps, accidental (unintentional), initial encounter (principal); Z86.73 Personal history of transient ischemic attack (TIA), and cerebral infarction without residual deficits; Z86.718 Personal history of other venous thrombosis and embolism
CPT/HCPCS: 99213; G0463; J7512

== ENCOUNTER 2024-12-06 13:20 | Emergency (ER) | payer BC, SELFPAY ==
--- OUTSIDE RECORDS SUMMARY | 2023-08-09 16:30 | XMS_ITS ---
Author Organization [facility] [place] ([address]) Address [address] [place] [address] Care Team Providers Care Primer Charger Name Role Phone Katherine Munguia DO Primary Care Provider Unavaila Corey Fitch Unavailable [phone] [facility]-Migration, Provider Unavailable Unavailab le Allergies Allergen (clinical drug ingredient) Drug/Non Drug Allergy documented on EMR Reaction Allergy Type Onset Date Status AIM TOOTHPASTE (uncoded) hives Allergy Active SOME URIEL (uncoded) no numbing. Intensifies the pain Allergy Active Aleve hives bottom of feet and hand palms Drug Allergy Active erythromycin Erythromycin hives Drug Allergy A ctive REASON FOR VISIT [facility] To [facility] Conversion Encounter Encounters Encounter Location Date Provider Diagnosis [address] [address] 08/09/2023 Provider ZZ-Migration Plan Of Treatment Next Appt Details Provider Name:Meme carlisle, 12/23/2024 03:00:00 PM, [address] [facility], [address], [place], [address], Progress Notes * Monica HWANG LDOB: [birth year] (49 yo F)Acc No.[id number]:08/09/2023 Patient: Monica ARREDONDO Provider: Petra rovider Migration :1975 A ge:48 Y S ex:Female Date:08/09/2023 Address:[facility] [address] [place] Pcp:Katherine Munguia DO Subjective: * Chief Complaints: * 1 . [facility] Conversion Encounter. * Medical History: * Allergies: E rythromycin: hives, Aleve: hives bottom of feet and hand palms, SOME URIEL: no numbing. Intensifies the pain, AIM TOOTHPASTE: hives. Objective: * Vitals: Assessment: Plan: * Treatment: * Billing Information: * Visit Code: * Procedure Codes: * Electronic signature of Prov epir ZZ-Migration on 12/06/2024 at 02:34 PM CDT Sign off status: Pending * Provider: Petra montalvoluis Migration Date: 0 08/09/2023 Generated for Lamar guzman/Dane/Blair on: 1 02:34 PM CDT
--- NOTE | 2024-12-06 13:24 | ED_ITS ---
HPI - Skin/Abscess/Foreign Bdy General Chief complaint: Skin/Abscess/Foreign Body Stated complaint: stung by bee Time Seen by Provider: 12/06/24 13:23 Source: patient Mode of arrival: ambulatory Limitations: no limitations History of Present Illness HPI narrative: Monica is a 49-year-old female patient presenting to the clinic today with complaints of a wasp sting to her left middle finger. Middle finger is red and swollen. She reports this occurred about 20 minutes ago. Has been stung several times this summer by wasp in has had to come in for swelling. No sob, diff breathing, or chest pain. Has not taken any medications for her symptoms. Related Data Allergies Allergy/AdvReac Type Severity Reaction Status Date / Time erythromycin base Allergy Rash Verified 11/08/24 08:49 lidocaine AdvReac Mild Other Verified 11/08/24 08:49 naproxen (From Aleve) AdvReac Hives Verified 11/08/24 08:49 Review of Systems Review of Systems: Pertinent positives per HPI. Patient denies any fever, chills, rash, headache, visual changes, dizziness, cough, shortness of breath, chest pain, palpitations, nausea, vomiting, diarrhea, constipation, abdominal pain, or any urinary issues. [facility] Past Medical History Medical History TIA (transient ischemic attack) Seizure disorder DVT (deep venous thrombosis) Social History Social History Smoking status: Never smoker Alcohol intake: current Substance use: never Living arrangements: with family Spiritual care concerns: No Comments At the time of my signature, I reviewed and agree with the nursing past medical, surgical, social, and family history. There is no relevant family history pertinent to the patient complaint. Exam Narrative: General: Well-developed, well nourished, in no apparent distress Head: Normocephalic, atraumatic Eyes: Pupils equally round and reactive to light bilaterally, EOM intact, sclera and conjunctive clear, no discharge, lids normal Ears: TMs intact and clear, ear canals clear, no drainage, grossly hearing normal. Nose: Nares patent, no discharge, no inflammation, no sinus tenderness. Mouth: Oral pharynx without lesions or masses, good dentition, MMM. Neck: Supple, trachea midline, no enlargement of anterior or posterior cervical nodes, no thyroid masses or goiter palpable. Cardio: Regular rate and rhythm, s1 and s2 normal, no murmur appreciated. Resp: Clear to auscultation bilaterally, no rhonchi, rales, wheezing or rubs Integumentary: [place], warm, and dry, intact without lesion, no rashes. Course Course Emergency Course: Portions of this record may have been created with voice recognition software. Level of Care: Express Care Visit Vital Signs Vital signs: Vital signs reviewed MDM - Skin/Abscess/Foreign Bdy MDM Narrative Medical decision making narrative: At the time of visit patient is resting comfortably on the exam table. Patient appears to be nontoxic. Complaints of a wasp sting to her left middle finger. Middle finger is red and swollen. She reports this occurred about 20 minutes ago. Has been stung several times this summer by wasp in has had to come in for swelling. No sob, diff breathing, or chest pain. Has not taken any medications for her symptoms. On exam patient has left middle finger swelling with mild redness/itching. Vital signs stable. Patient is able speak in full sentences- oxygen saturation 97% on room air Plan: I suspect patient has allergic reaction to a wasp sting. Prescription for prednisone was sent to the pharmacy. Recommend taking some Benadryl for symptoms and may apply ice pack. Supportive measures were discussed with the patient and they voiced understanding discharge instructions and agrees to treatment plan. Return precautions reviewed Differential Diagnosis Differential diagnosis: Likely abscess of skin or subcutaneous tissue, viral exanthem, dermatophytosis, urticaria, herpes zoster, allergic reaction to drug, cellulitis, eczema, insect bites, impetigo and contact dermatitis Discharge Plan Discharge Clinical Impression: Accidental insect sting Allergic reaction to insect sting Qualifiers: Encounter type: initial encounter Injury intent: accidental or unintentional Qualified Code(s): T63.481A - Toxic effect of venom of other arthropod, accidental (unintentional), initial encounter Patient Disposition: Home Condition: Stable Instructions: Antibiotic Form, Insect Bite or Sting (ED), General Allergic Reaction (ED) Additional Instructions: Take prednisone as prescribed Increase fluids and stay well hydrated Apply ice pack to the affected area to help alleviate pain and swelling May take Tylenol/ibuprofen as needed for pain as per bottle directions May take Benadryl as needed for itching/swelling Follow-up with your primary care doctor as needed Patient Language: Telugu Prescriptions: New prednisone 20 mg tablet 40 mg PO DAILY 5 Days Qty: 10 0RF Follow-up/Referrals: UNKNOWN,DOCTOR [Primary Care Provider] Time of Disposition: 13:27 Quality NIHSS Nursing Documentation ED NIHSS nursing documentation: reviewed/agree
[2024-12-06 13:34] VITALS: BP 131/74; PULSE 69; RESP 16; TEMP 36.2; O2SAT 98
[2024-12-06] MEDS: diphenhydrAMINE HCl CAP 25 MG CAPSULE 50 MG PO (13:43)
--- OUTSIDE RECORDS SUMMARY | 2024-12-06 14:33 | XMS_ITS | Encounter Summary ---
Author Organization [facility] Address [address] [place] [address] Care Team Providers Care Printer'S Devil Name Role Phone Pedro Bermeo MD Unavailable [phone] Katherine Munguia DO Primary Care Provider [phone] Encounter Details Date Type Department Care Team (Late st Contact Info) Description 09/24/2021 Rootstock Softwaret Message Enc 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
--- OUTSIDE RECORDS SUMMARY | 2024-12-06 14:33 | XMS_ITS | Encounter Summary ---
Author Organization [facility] Address [address] [place] [address] Care Team Providers Care Senior Cost Accountant Name Role Phone Pedro Bermeo MD Unavailable [phone] Katherine Munguia DO Primary Care Provider [phone] Encounter Details Date Type Department Care Team (Late st Contact Info) Description 06/18/2023 Smart Platet Message Enc [facility] Medical Group Family Medicine - [place] [address] [facility], [address] [place] [address] Katherine Munguia DO [address] [place], [place] [id number] Still have the cough Social History Tobacco [...] 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
--- OUTSIDE RECORDS SUMMARY | 2024-12-06 14:33 | XMS_ITS | Encounter Summary ---
Author Organization [facility] Address [address] [place] [address] Care Team Providers Care Rigging Foreman Name Role Phone Pedro Bermeo MD Unavailable [phone] Katherine Munguia DO Primary Care Provider Encounter Details Date Type Department Care Team (Late st Contact Info) Description 02/28/2023 ab&jb properties and servicest Message Enc [facility] Medical Group Family Medicine - [place] [address] [facility], [address] [place] [address] Katherine Munguia DO [address] [place], [place] [id number] Injury on New Years Social History Tobacco [...] 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
--- OUTSIDE RECORDS SUMMARY | 2024-12-06 14:33 | XMS_ITS | Encounter Summary ---
Author Organization [facility] Address [address] [place] [address] Care Team Providers Care Buffer Automatic Name Role Phone Pedro Bermeo MD Unavailable [phone] Katherine Munguia DO Primary Care Provider [phone] Encounter Details Date Type Department Care Team (Late st Contact Info) Description 11/25/2023 Camileon Heels Message Enc [facility] Medical Group Family Medicine - [place] [address] [facility], [address] [place] [address] Katherine Munguia DO [address] [place] [address] Doxycycline Social History Tobacco Use [...] 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
--- OUTSIDE RECORDS SUMMARY | 2024-12-06 14:33 | XMS_ITS | Encounter Summary ---
Author Organization [facility] Address [address] [place] [address] Care Team Providers Care Welt Wheeler Name Role Phone Pedro Bermeo MD Unavailable [phone] Katherine Munguia DO Primary Care Provider [phone] Encounter Details Date Type Department Care Team (Late st Contact Info) Description 03/27/2023 [employer]Neura [employer] Message Enc [facility] Medical Group Family Medicine - [place] [address] [facility], [address] [place] [address] Katherine Munguia DO [address] [place] [address] ACL surgery Social History Tobacco [...] 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
--- OUTSIDE RECORDS SUMMARY | 2024-12-06 14:33 | XMS_ITS | Encounter Summary ---
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
--- OUTSIDE RECORDS SUMMARY | 2024-12-06 14:33 | XMS_ITS | Encounter Summary ---
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 Thank you!! Jeff documented in this encounter Plan of Treatment Not on file documented as of this encounter Visit Diagnoses Not on filedocumented in this encounter Additional Health Concerns Infection Onset Date Last Indicated Resolved Time COVID-19 Rule Out 03/28/2022 03/28/2022 03/28/2022 8:40 PM COVER CREASER COVID-19 Rule Out 06/05/2023 06/05/2023 06/05/2023 9:27 AM CDT Assessment Noted Time PHQ-9 Depression Total Score: 0 10/07/19 21 8:18 AM CDT documented as of this encounter Care Teams School Bus Inspector Relationship Specialty Start Date End Date Katherine Munguia DO [address] [place] [address] PCP - General FAMILY PRACTICE 08/31/19 Pedro Bermeo MD [place] Laboratory Chemist CARDIOVASCULAR DISEASE 05/08/17 documented as of this encounter
--- OUTSIDE RECORDS SUMMARY | 2024-12-06 14:33 | XMS_ITS | Encounter Summary ---
Author Organization [facility] Address [address] [place] [address] Care Team Providers Care Electrician Constructor Supervisor Name Role Phone Pedro Bermeo MD Unavailable [phone] Katherine Munguia DO Primary Care Provider [phone] Encounter Details Date Type Department Care Team (Late st Contact Info) Description 10/05/2023 [employer]e [employer] Message Enc [facility] Medical Group Family Medicine - [place] [address] [facility], [address] [place] [address] Katherine Munguia DO [address] [place], [place] [id number] Can we talk before moms appointment Friday? 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 Not on file documented as of this encounter Plan of Treatment Not on file documented as of this encounter Visit Diagnoses Not on filedocumented in this encounter Additional Health Concerns Assessment Noted Time PHQ-9 Depression Total Score: 0 06/09/19 24 12:01 PM CDT documented as of this encounter Care Teams Electrician Constructor Supervisor Relationship Specialty Start Date End Date Katherine Munguia DO [facility] [place] [address] PCP - General FAMILY PRACTICE 08/31/19 Pedro Bermeo MD [place] Concession Worker CARDIOVASCULAR DISEASE 05/08/17 documented as of this encounter
--- OUTSIDE RECORDS SUMMARY | 2024-12-06 14:33 | XMS_ITS | Encounter Summary ---
Author Organization [facility] Address [address] [place] [address] Care Team Providers Care Dough Machine Operator Name Role Phone Pedro Bermeo MD Unavailable [phone] Katherine Munguia DO Primary Care Provider [phone] Encounter Details Date Type Department Care Team (Late st Contact Info) Description 06/20/2021 FRAMEDt Message Enc [facility] Medical Group Family Medicine - [place] [address] 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
--- OUTSIDE RECORDS SUMMARY | 2024-12-06 14:34 | XMS_ITS | Encounter Summary ---
Author Organization [facility] Address [address] [place] [address] Care Team Providers Care Aerospace Manager Name Role Phone Pedro Bermeo MD Unavailable [phone] Katherine Munguia DO Primary Care Provider [phone] Encounter Details Date Type Department Care Team (Late st Contact Info) Description 02/04/2022 DoveConviene Message Enc [facility] Medical Group Family Medicine - [place] [address] [facility], [address] [place] [address] Katherine Munguia DO [address] [place] [address] Mom Social History Tobacco Use [...] 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 No / Unsure 01/14/2022 1:44 PM MINE BOSS documented as of this encounter Plan of Treatment Not on file documented as of this encounter Visit Diagnoses Not on filedocumented in this encounter Additional Health Concerns Infection Onset Date Last Indicated Resolved Time COVID-19 Rule Out 03/28/2022 03/28/2022 03/28/2022 8:40 PM MINE BOSS COVID-19 Rule Out 06/05/2023 06/05/2023 06/05/2023 9:27 AM CDT Assessment Noted Time PHQ-9 Depression Total Score: 0 09/27/19 22 2:18 PM CDT documented as of this encounter Care Teams Aerospace Manager Relationship Specialty Start Date End Date Katherine Munguia DO [address] [place] [address] PCP - General FAMILY PRACTICE 08/31/19 Pedro Bermeo MD [place] [facility] Teacher CARDIOVASCULAR DISEASE 05/08/17 documented as of this encounter
--- OUTSIDE RECORDS SUMMARY | 2024-12-06 14:34 | XMS_ITS | Patient Health Record ---
Author Organization [facility] Address [address] [place] [address] Care Team Providers Care Analytical Clerk Name Role Phone DENISEDIPIKAFI Unavailable [phone] Reason For Referral No Information Plan Of Treatment No Information
--- OUTSIDE RECORDS SUMMARY | 2024-12-06 14:34 | XMS_ITS | Encounter Summary ---
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
--- OUTSIDE RECORDS SUMMARY | 2024-12-06 14:34 | XMS_ITS | Patient Health Record ---
Author Organization [facility] ([address]) Address [address] [place] [address] Care Team Providers Care Facilities Coordinator Name Role Phone Katherine Munguia DO Primary Care Provider Corey White Unavailable [phone] Allergies Allergen (clinical drug ingredient) Drug/Non Drug [...] Status Risk Notes Problem Chronic allergic conjunctivitis (40233799) Other chronic allergic conjunctivitis (H10.45) Active confirmed Problem Allergic rhinitis caused by pollen (disorder) (48832606) Allergic rhinitis due to pollen (J30.1) Active confirmed Problem Allergic rhinitis (60790117) Other allergic rhinitis (J30.89) Active confirmed Problem Chronic rhinitis (50310912) Chronic rhinitis (J31.0) Active confirmed Problem Uncomplicated mild persistent asthma (148354517) Mild persistent asthma, uncomplicated (J45.30) Active confirmed Problem Uncomplicated moderate persistent asthma (689151450) Moderate persistent asthma, uncomplicated (J45.40) Active confirmed Problem Uncomplicated severe persistent asthma (675095530) Severe persistent asthma, uncomplicated (J45.50) Active confirmed Problem Allergic rhinitis caused by animal hair and dander (740620221173390) Allergic rhinitis due to animal (cat) (dog) hair and dander (J30.81) Active confirmed Plan Of Treatment Next Appt Details Provider Name:Meme carlisle, 12/23/2024 03:00:00 PM, [address] [facility], [address], [address], Insurance Providers Payer Name Payer Address Payer Phone Subscriber Number Group Number Insured Name Patient Relationship to Insured Coverage Start Date Coverage End Date [facility] [address] [place] [address] [id number] Monica Li Self - patient is the insured Medical (General) History Surgical History Surgery Date(Month/Year) Tonsillectomy 07/26/1979 Right Wrist Tendon 09/07/2002 Apendectomy 06/05/2004 Left ACL 01/14/2008 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
--- OUTSIDE RECORDS SUMMARY | 2024-12-06 14:34 | XMS_ITS | Patient Health Record ---
Author Organization [address] [facility] Address [address] [facility] [address] [place] [address] Care Team Providers Care Stakeholder Manager Name Role Phone Dr Katherine Munguia Primary Care Provider Janis Pichardo Unavailable [phone] Allergies Allergen (clinical drug ingredient) Drug/Non Drug Allergy documented on EMR Reaction Allergy Type Onset Date Status Aleve Unknown Drug Allergy Active erythromycin Erythromycin Unknown Drug Allergy A ctive lidocaine Lidocaine Unknown Drug Allergy Active Reason For Referral No Information Medications Medication SIG (Take, Route, Frequency, Duration) Notes Start Date End Date Status Xkttpipn-Vfbqujwvs-Lmf ameth 0.1 % Suspension 1-2 drops to affected toe(s) until healed topical QD; Duration: 14 days Not-Taking/PRN Gentamicin Sulfate A ctive Social History Tobacco Use: Social History Observation Description Date Details (start date - stop date) Never Smoker NA - NA Social History Tobacco Use: Social Info Question Answer Notes Tobacco Use/Smoking Are you a nonsmoker Are you a nonsmoker Additional Details Category Social Info Options Details Miscellaneous: Exercise: Moderate Exercise: Moderate Occupation: Works full-time Occupation: Works full-time Living with: spouse Living with: spouse Drugs/Alcohol: Alcohol use: Social alcoho l use Alcohol use: Social alcohol u se Recreational drugs Patient denie s recreational drug use Recreational drugs Patient denie s recreational drug use Problems Problem Type SNOMED Code ICD Code Onset Dates Problem Status W/U Status Risk Notes Problem Raynaud's disease (840159862) Raynaud's disease without gangrene (I73.00) Active confirmed Plan Of Treatment No Information Insurance Providers Payer Name Payer Address Payer Phone Subscriber Number Group Number Insured Name Patient Relationship to Insured Coverage Start Date Coverage End Date [facility] [address] [place] [address] [id number] Monica Deng Self - patient is the insured Medical (General) History Surgical History Surgery Date(Month/Year) Left ACL
--- OUTSIDE RECORDS SUMMARY | 2024-12-06 14:34 | XMS_ITS | Clinical Summary ---
Author Organization [facility] Address [facility] [place] [address] Care Team Providers Care Job Forwarder Name Role Phone Pedro Bermeo MD Unavailable [phone] Katherine Munguia DO Primary Care Provider [phone] Allergies Active Allergy Reactions Criticality Noted Date Comments Albuterol Other (see comment) 06/09/2023 Mad, irritated Erythromycin Unknown,Hives 10/15/2010 Lidocaine Unknown 04/23/2017 Does not work, if anything, makes opposite reaction than what it should do. Hypersensitive. Feels pain more. Naproxen Hives 10/20/2018 Only happens with Aleve, hives on hands & bottom of feet Plax Hives 10/21/2023 [employer]IM [employer] Medications pantoprazole EC (PROTONIX) 20 MG tabletIndication s:Epigastric pain TAKE 1 TABLET(20 MG) BY MOUTH DAILY 30 tablet 3 09/06/2024 Active pantoprazole EC (PROTONIX) 20 MG tabletIndication s:Epigastric pain TAKE 1 TABLET(20 MG) BY MOUTH DAILY 30 tablet 3 09/06/2024 Active Active Problems Problem Noted Date Diagnosed [...] Encounters Date Type Department Care Team Description 12/06/2024 Telephone [facility] Family Medicine - [place] [address] [facility], [address] [place] [address] Katherine Munguia DO Bee Sting (Wasp sting ) 11/04/2024 MyChart Message Enc [facility] Family Medicine - [place] [address] [facility], [address] [place] [address] Katherine Munguia DO mom 10/16/2024 Scan HEALTH INFO SRVCS Scanned, Doc Med Group 09/11/2024 Scards Message Enc [facility] Medical Group Family Medicine - [place] [address] [facility], [address] [place] [address] Katherine Munguia DO Upload of recent bloodwork from Last 3 Months Immunizations Immunization Administration [...] 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 Not [...] 05/03/2023 Zoster Vaccines (1 of 2) 05/03/2023 Colorectal Cancer Screening Colonoscopy (10 Years) 01/15/2024 01/14/2019 DTaP, Tdap and Td Vaccines (2 - Td or Tdap) 02/25/2024 02/24/2014, 05/20/2008, 05/09/1998 PHQ-2 (Physician [place]) 02/25/2024 12/09/2023 COVID-19 Vaccine ( season) 2024 06/21/2020, 05/11/2020 Influenza Adult (#1) 2024 12/08/2010, 03/30/2009, 01/24/2007 Mammogram Screening 06/10/2026 06/10/2024, 06/10/2024, 06/13/2023, Additional history exists Cervical Cancer Screening Pap with HPV Testing (Age 30 to 64) Every 5 Years 09/18/2026 09/18/2021 Cervical Cancer Screening with HPV 09/18/2026 Hepatitis A Vaccines Aged Out 05/10/2000 No long er eligible based on patient's age to complete this topic Meningococcal B Vaccine Aged Out No l onger eligible based on patient's age to complete this topic Meningococcal Vaccine Aged Out No sean helen eligible based on patient's age to complete this topic RSV Immunizations Under 20 Months Aged Out No longer eligible based on patient's age to complete this topic Procedures Procedure Name Priority Date/Time Associated Diagnosis Comments MAMMOGRAM GENERIC (SCAN ORDER) 06/10/2024 OUTSIDE CYTOPATH CERV/VAG IN [place]PRET (PAP) 09/18/2021 COLONOSCOPY GENERIC (SCAN ORDER) Routine 01/14/2019 from Last 3 Months or Most Recently Relevant to Health Maintenance Results * MAMMOGRAM GENERIC (SCAN ORDER) (06/10/2024) Anatomical Region Laterality Modality Other 06/10/2024 [employer] Scanned SCANNING Final Resu lt * PAP SMEAR WITH HPV (09/18/2021) 09/18/2021 [employer] Scanned SCANNING Final Resu lt * COLONOSCOPY (01/14/2019) [employer] Scanned SCANNING Final Resu lt [facility] from Last 3 Months or Most Recently Relevant to Health Maintenance Insurance [facility] [employer] [facility] [employer] [facility] Care Teams Job Forwarder Relationship Specialty Start Date End Date Katherine Munguia DO [address] [place] [address] PCP - General FAMILY PRACTICE 08/31/19 Pedro Bermeo MD [place] Fisheries Manager CARDIOVASCULAR DISEASE 05/08/17
--- OUTSIDE RECORDS SUMMARY | 2024-12-06 14:34 | XMS_ITS | Clinical Summary ---
Author Organization [facility] al Address [address] [place] [address] Care Team Providers Care Operations Leader Name Role Phone Katherine Munguia Primary Care Provider [phone] Aretha Robin MD Unavailable [phone] Allergies Active Allergy Reactions Criticality Noted [...] 10/15/2010 Surgical History Surgery Date Site/Laterality Comments [place] TONSILLECTOMY PRIMARY/SEC ONDARY <AGE 10 02/24/1979 - 02/24/1980 Tonsillectomy - (Added by TW Conv) [place] APPENDECTOMY 02/25/2004 - 02/23/2005 Appendectomy - (Added [...] on file Legal Sex Female 5:13 AM SOLAR INSTALLATION SUPERVISOR Gender Identity Not on file Sexual Orientation Not on file Obstetrics History Para Term AB IAB SAB Ectopic Multiple Livin g Live Births 0 0 0 0 0 0 0 0 0 0 0 Last Filed Vital Signs Vital Sign Reading Time Taken Comments Blood Pressure 129/70 03/28/2023 4:45 PM SOLAR INSTALLATION SUPERVISOR Pulse 68 03/28/2023 4:50 PM SOLAR INSTALLATION SUPERVISOR Temperature 36.2 C (97.2 F) 03/28/2023 3:10 PM SOLAR INSTALLATION SUPERVISOR Respiratory Rate 15 03/28/2023 4:50 PM SOLAR INSTALLATION SUPERVISOR Oxygen Saturation 95% 03/28/2023 4:50 PM SOLAR INSTALLATION SUPERVISOR Inhaled Oxygen Concentration - - Weight [...] history exists Medical Devices Implanted Type Area Project Internship Device Identifier Shelf Expiration Date Model / Serial / Lot [employer] [place] Meniscal Repair Curved 2 0 Fiberwire Fiberstitch Ar-4570 - [id number] Implanted:Qty: 1 on 03/28/2023 by Ricky Johns IV, MD at [facility] [place] Right: Knee [employer] 11/23/2026 AR-4570 / / [id number] [employer] [place] Meniscal Repair Curved 2 0 Fiberwire Fiberstitch Ar-4570 - [id number] Implanted:Qty: 1 on 03/28/2023 by iRcky Johns IV, MD at [facility] Right: Knee [employer] 11/23/2026 AR-4570 / / [id number] [employer] Screw Fastthread Biocomposite Interference 7mm X 20mm Ar-4020c-07 - [id number] Implanted:Qty: 1 on 03/28/2023 by Ricky Johns IV, MD at [facility] Right: Femur [employer] 08/23/2026 AR-4020C-0 7 / / [id number] [employer] Screw Fastthread Biocomposite Interference 9mm X 20mm Ar-4020c-09 - [id number] Implanted:Qty: 1 on 03/28/2023 by Ricky Johns IV, MD at [facility] Right: Tibia [employer] 11/23/2026 AR-4020C-0 9 / / [id number] Procedures Procedure Name Priority Date/Time Associated Diagnosis [...] age 40, based on guidelines of the [employer] (ACR Practice Parameter for the Performance of Screening and Diagnostic Mammography) and [employer]. For women [...] Most Recently Relevant to Health Maintenance Insurance [facility] Advance Directives For more information, please contact: [phone] * Full Code (Latest Code Status on File) Date Activated Date Inactivated Comments 03/28/2023 3:23 PM 03/28/2023 9:46 PM Care Teams Operations Leader Relationship Specialty Start Date End Date Katherine Munguia DO [address] [facility] [address] [facility], [place] [address] PCP - General Family Medicine 01/10/21 Aretha Robin MD [address] [facility] [address] [place] [address] Consulting Physician Obstetrics and Gynecology 08/21/21
--- OUTSIDE RECORDS SUMMARY | 2024-12-06 14:34 | XMS_ITS | Encounter Summary ---
Author Organization [facility] Address [address] [place] [address] Care Team Providers Care Salad Bar Clerk Name Role Phone Pedro Bermeo MD Unavailable [phone] Katherine Munguia DO Primary Care Provider Encounter Details Date Type Department Care Team (Late st Contact Info) Description 03/17/2022 Layer 7 Technologiest Message Enc [facility] Medical Group Family Medicine [facility] [address] [facility], [address] [place] [phone] Katherine Munguia DO [address] [place], [place] [phone] Kidney Social History Tobacco Use Types Packs/Day [...] 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 No / Unsure 03/19/2022 12:52 PM APIGEE DEVELOPER documented as of this encounter Functional Status [...] Rule Out 03/28/2022 03/28/2022 03/28/2022 8:40 PM APIGEE DEVELOPER COVID-19 Rule Out 06/05/2023 06/05/2023 06/05/2023 9:27 AM CDT Assessment Noted Time PHQ-9 Depression Total Score: 0 09/27/19 22 2:18 PM CDT documented as of this encounter Care Teams Salad Bar Clerk Relationship Specialty Start Date End Date Katherine Munguia DO [address] [place] [address] PCP - General FAMILY PRACTICE 08/31/19 Pedro Bermeo MD [place] Certified Activities Director CARDIOVASCULAR DISEASE 05/08/17 documented as of this encounter
--- OUTSIDE RECORDS SUMMARY | 2024-12-06 14:35 | XMS_ITS | Encounter Summary ---
Author Organization [facility] Address [address] [place] [address] Care Team Providers Care Hand Patcher Name Role Phone Pedro Bermeo MD Unavailable [phone] Katherine Munguia DO Primary Care Provider [phone] Encounter Details Date Type Department Care Team (Late st Contact Info) Description 09/11/2024 WhiteHat Security Message Enc [facility] Medical Group Family Medicine - [place] [address] [facility], [address] [place] [phone] Katherine Munguia DO [address] [place], [place] [phone] Upload of recent bloodwork Social History Tobacco Use Types Packs/Day Years [...] 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
--- OUTSIDE RECORDS SUMMARY | 2024-12-06 14:35 | XMS_ITS | Encounter Summary ---
Author Organization [facility] Address [address] [place] [address] Care Team Providers Care Wood Boat Builder Supervisor Name Role Phone Pedro Bermeo MD Unavailable [phone] Katherine Munguia DO Primary Care Provider [phone] Encounter Details Date Type Department Care Team (Late st Contact Info) Description 11/04/2024 [employer] Skin Caret Message Enc [facility] Medical Group Family Medicine - [place] [address] [facility], [address] [place] [phone] Katherine Munguia DO [address] [place] [address] mom Social History Tobacco Use Types Packs/Day Years [...] 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
--- OUTSIDE RECORDS SUMMARY | 2024-12-06 14:35 | XMS_ITS | Encounter Summary ---
Author Organization [facility] Address [address] [place] [address] Care Team Providers Care Machine Spreader Name Role Phone Pedro Bermeo MD Unavailable [phone] Katherine Munguia DO Primary Care Provider [phone] Encounter Details Date Type Department Care Team (Late st Contact Info) Description 03/15/2020 Dizko Samurait Message Enc [facility] Medical Group Family Medicine - [place] [address] [facility], [address] [place] [phone] Katherine Munguia DO [address] [place] [address] RE: Question Social History Tobacco [...] 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 No / Unsure 03/10/2020 10:13 AM HEEL PADDER documented as of this encounter Plan of Treatment Not on file documented as of this encounter Visit Diagnoses Not on filedocumented in this encounter Additional Health Concerns Infection Onset Date Last Indicated Resolved Time COVID-19 Rule Out 10/17/2020 10/17/2020 10/18/2020 1:38 PM CDT COVID-19 Rule Out 02/14/2021 02/14/2021 02/16/2021 2:27 AM HEEL PADDER COVID-19 Rule Out 05/04/2021 05/04/2021 05/05/2021 2:45 PM HEEL PADDER COVID-19 Rule Out 05/07/2021 05/07/2021 05/08/2021 1:42 AM CDT COVID-19 Rule Out 03/28/2022 03/28/2022 03/28/2022 8:40 PM HEEL PADDER COVID-19 Rule Out 06/05/2023 06/05/2023 06/05/2023 9:27 AM CDT documented as of this encounter Care Teams Machine Spreader Relationship Specialty Start Date End Date Katherine Munguia DO [address] [place] [address] PCP - General FAMILY PRACTICE 08/31/19 Pedro Bermeo MD [place] Field Crop Farm Worker CARDIOVASCULAR DISEASE 05/08/17 documented as of this encounter
--- OUTSIDE RECORDS SUMMARY | 2024-12-06 14:35 | XMS_ITS | Clinical Summary ---
Author Organization [facility] Care Team Providers Care Senior Product Integrity Engineer Name Role Phone Katherine Munguia Primary Care Provider [phone] Allergies Active Allergy Reactions Criticality Noted Date [...] Vaccine Nasal 12/08/2010,01/24/2007 MMR Vaccine 04/03/2003 Novel [id number], Injectable 03/30/2009 Rabies, Intradermal Injection 03/14/2005 TD [...] on file Legal Sex Female 10:58 AM SENIOR ELECTRONICS DESIGN ENGINEER Gender Identity Not on file Sexual Orientation [...] patient's age to complete this topic Insurance [facility] Care Teams Senior Product Integrity Engineer Relationship Specialty Start Date End Date Katherine Munguia DO [facility] [place] [address] PCP - General Family Medicine 05/21/22
--- OUTSIDE RECORDS SUMMARY | 2024-12-06 14:35 | XMS_ITS | Encounter Summary ---
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 No / Unsure 02/03/2020 2:13 PM BUSINESS ACCOUNT MANAGER documented as of this encounter Plan of Treatment Not on file documented as of this encounter Visit Diagnoses Not on filedocumented in this encounter Additional Health Concerns Infection Onset Date Last Indicated Resolved Time COVID-19 Rule Out 10/17/2020 10/17/2020 10/18/2020 1:38 PM CDT COVID-19 Rule Out 02/14/2021 02/14/2021 02/16/2021 2:27 AM BUSINESS ACCOUNT MANAGER COVID-19 Rule Out 05/04/2021 05/04/2021 05/05/2021 2:45 PM BUSINESS ACCOUNT MANAGER COVID-19 Rule Out 05/07/2021 05/07/2021 05/08/2021 1:42 AM CDT COVID-19 Rule Out 03/28/2022 03/28/2022 03/28/2022 8:40 PM BUSINESS ACCOUNT MANAGER COVID-19 Rule Out 06/05/2023 06/05/2023 06/05/2023 9:27 AM CDT documented as of this encounter Care Teams Business Services Tech Relationship Specialty Start Date End Date Katherine Munguia DO [address] [place] [address] PCP - General FAMILY PRACTICE 08/31/19 Pedro Bermeo MD [place] Research Quality Assurance Analyst CARDIOVASCULAR DISEASE 05/08/17 documented as of this encounter
--- OUTSIDE RECORDS SUMMARY | 2024-12-06 14:35 | XMS_ITS | Encounter Summary ---
Author Organization [facility] Address [facility] [place] [address] Care Team Providers Care Toilet Products Molder Name Role Phone Pedro Bermeo MD Unavailable [phone] Katherine Munguia DO Primary Care Provider [phone] Reason for Visit * Reason Onset Date Comments Bee Sting 12/06/2024 Wasp sting Encounter Details Date Type Department Care Team (Late st Contact Info) Description 12/06/2024 Telephone [facility] Medical Group Family Medicine - [address], [address] [place] [phone] Katherine Munguia DO [address] [place] [address] Bee Sting (Wasp sting ) Social History Tobacco Use Types Packs/Day Years [...] 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 She notes that this is the 6th time this summer and the reactions keep getting worse every time she gets stung. Patient is not short of breath, no swelling to the face, lips, tongue or throat. No cardiovascular or GI symptoms. Patient states that the last time she got stung, there was significant swelling to the affected site. Advised her to see UC or the ED due to past reactions. Patient would like to know if there is an allergy test she could do.Patient scheduled for an office visit tomorrow morning for evaluations. documented in this encounter Plan of Treatment Not on file documented as of this encounter Visit Diagnoses Not on filedocumented in this encounter Additional Health Concerns Assessment Noted Time PHQ-9 Depression Total Score: 0 12/09/19 24 9:23 AM CDT documented as of this encounter Care Teams Toilet Products Molder Relationship Specialty Start Date End Date Katherine Munguia DO [address] [place] [address] PCP - General FAMILY PRACTICE 08/31/19 Pedro Bermeo MD [place] Horn Player CARDIOVASCULAR DISEASE 05/08/17 documented as of this encounter
--- OUTSIDE RECORDS SUMMARY | 2024-12-06 14:35 | XMS_ITS | Encounter Summary ---
Author Organization [facility] Address [address] [place] [address] Care Team Providers Care Home Health Nurse Licensed Practical Name Role Phone Pedro Bermeo MD Unavailable [phone] Katherine Munguia DO Primary Care Provider [phone] Encounter Details Date Type Department Care Team (Late st Contact Info) Description 03/30/2022 Phurnace Softwaret Message Enc [facility] Medical Group Family Medicine - [place] [address] [facility], [address] [place] [phone] Katherine Munguia DO [address] [place] [address] Rash is back. 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 No / Unsure 03/28/2022 2:45 PM RETURNED GOODS SORTER documented as of this encounter Plan of Treatment Not on file documented as of this encounter Visit Diagnoses Not on filedocumented in this encounter Additional Health Concerns Infection Onset Date Last Indicated Resolved Time COVID-19 Rule Out 06/05/2023 06/05/2023 06/05/2023 9:27 AM CDT Assessment Noted Time PHQ-9 Depression Total Score: 0 09/27/19 22 2:18 PM CDT documented as of this encounter Care Teams Home Health Nurse Licensed Practical Relationship Specialty Start Date End Date Katherine Munguia DO [address] [place] [address] PCP - General FAMILY PRACTICE 08/31/19 Pedro Bermeo MD [place] Revenue Accountant CARDIOVASCULAR DISEASE 05/08/17 documented as of this encounter
--- OUTSIDE RECORDS SUMMARY | 2024-12-06 14:38 | XMS_ITS | Data Portability ---
Author Organization [employer], [employer], [facility] Address [address] [address] Assessment Encounter Date Assessment Date Assessment LastModified [...] auto diff - [facility], [address], [address], [place], [address], 4 13:48:41 vitamin D, 25-hydrox y, total, serum - [facility] [email or web address] [facility], [address], [address], [place], [address], 4 17:52:33 HbA1c (hemoglob in A1c), blood - [facility] [email or web address] [facility], [address], [address], [place], [address], 4 17:52:33 CRP, high sensitivi ty, serum or plasma - [facility] [email or web address] [facility], [address], [address], [place], [address], 4 17:52:33 testoster one, free + total, serum - [facility] [email or web address] [facility], [address], [address], [place], [address], 4 17:52:33 Referral None recorded. Procedures None [...] Time 06/24/19 24 Radiographs completed Hal Fisher [address] [facility] [address], [place], [address], [facility], [facility] 06/24/2023 21:09:57 06/24/19 24 Ultrasound Examination completed Hal Fisher [address] [facility] [address], [place], [address], [facility], [facility] 06/24/2023 21:08:56 03/27/19 24 reconstruction of anterior cruciate ligament of knee joint completed Ricardo [employer] [facility], [facility] 06/24/2023 14:47:47 09/25/19 22 Wrist arthroscopy/surger y completed Ricardo Ashley [facility], [facility] 06/24/2023 14:48:29 10/26/19 08 reconstruction of anterior cruciate ligament of knee joint completed Ricardo [employer] [facility], [facility] 06/24/2023 14:47:31 04/25/19 02 Wrist arthroscopy/surger y completed Ricardo [facility], [facility] 06/24/2023 14:48:50 Imaging Results None recorded. Procedure Notes None recorded. Medical Equipment None Reported. Allergies Allergen ID Allergen Name Allergen Category Reaction Reaction Severity Criticality Documentation Date Start Date Code Code System Note Provider Name and Address Organization Details Recorded Time 10111 erythromy delmer medicatio n hives Not available Not available 06/24/2023 4053 RxNorm Ricardo Ashley [facility], [facility] 4 14:39:31 76448 Aleve medicatio n hives Not available Not available 06/24/2023 03861 1 RxNorm Ricardo Ashley [facility], [facility] 14:39:57 25050 lidocaine medicatio n Not available Not available Not available 06/24/2023 6387 RxNorm Ricardo Ashley [facility], [facility] 14:40:53 Medications Name Sig Start Date Stop [...] Updated DateTime 06/24/2023 172.72 cm 30.4 kg/m2 25946.47 g Ricardo Ashley [employer] 06/24/2023 14:38:22 Date Recorded Body height Body mass index (BMI) Body weight Heart rate Systolic And Diastolic Provider Name and Address Organization Details Last Updated DateTime 07/16/2023 172.72 cm 30.4 kg/m2 47464.47 g 74 /min 145/85 mm[Hg] Gillian Macias [employer] 14:37:15 Social History Question Answer Notes LastModified by [place] [facility] [place] Details LastModified Time Tobacco Smoking Status Never Smoker Ricardo hussein [employer] 06/24/2023 14:46:45 What Is Your Relationship Status? [...] grandfather, aunts, cousins Medical History Condition Response Other Cancer N HIV or AIDS N Coronary Artery Disease N Gout N Kidney Stones N Hyperthyroidism N Breast Cancer N Hernia N Head Trauma/Injury Y Lung Cancer N Hypothyroidism N Lung Disease N Depression N Blood Clots N COPD N Pneumonia N Pacemaker N Parkinson's N [...] Tendon Tear Y Ulcers N Heart Attack ([place]) N Osteopenia N Diabetes N Bleeding Disorder N Seizures/Epilepsy N Cardiac Stent N Tuberculosis N A-FIB N BPH N Lymphoma N Urinary Tract Infection N Back Problems N Diverticulitis N Dementia N Vision Problems N Asthma N Lupus N Detention Medication Use N Peripheral Vascular Disease N [...] Diagnosis SNOMED-CT Code Diagnosis ICD10 Code Diagnosis IMO Codes Diagnosis Note [id number] JEFFERY SEAY PA-C [facility] [address] [place] [address] 06/24/2023 13:56:39 06/24/2023 16:23:44 Pain of right ankle joint [id number] M25.571 Screening procedure 2012 5006 Z13.9 R53.83 M89.9 M94.9 Z01.812 E55.9 Z13.228 Z13.1 M02.80 Instabilit y of joint of right ankle [id number] 338063 M25.371 [id number] JEFFERY SEAY PA-C [facility] [address] [facility] [address] [place] [address] 07/16/2023 13:15:46 07/24/2023 14:37:19 Pain of right ankle joint 7702262385 1976190 M25.571 Instabilit y of joint of right ankle 2051202812 761568 M25.371 Vitamin D deficiency 347 12534 E55.9 R53.83 M89.9 M94.9 Recommend vitamin D [...] 1 [place] 104 Monica Dominguez [id number] Monica Li 02/29/2024 1 [place]AL EMPLOYEE PROGRAM ([place]) 104 Monica Dominguez [id number] Monica Li Notes Date Note Type Note [...] her pain as an 8/10 Hal Phillip [address], [place], [address], [employer], [employer] 06/24/2023 21:11:30 07/16/2023 text/html 48 y/o F presents for group medical visit focusing on treatment [...] recent illness, CP, SOB. JEFFERY SEAY PA-C [address], [place], [address], [employer], [employer] 07/23/2023 18:35:13 OBGyn Episode No OBEpisode recorded.
== END 2024-12-06 13:46 | disposition home or self-care (01) ==
PROVIDERS: Emergency Provider Nurse Practitioner Family
DX: T63.461A Toxic effect of venom of wasps, accidental (unintentional), initial encounter (principal); Z86.73 Personal history of transient ischemic attack (TIA), and cerebral infarction without residual deficits; Z86.718 Personal history of other venous thrombosis and embolism
CPT/HCPCS: 99213; A9270; G0463; J7512